=== PATIENT | female | born 1955 | race Caucasian/White ===

== ENCOUNTER 2018-05-12 03:47 | Emergency (ER) | payer OTHER, SELFPAY ==
[2018-05-12 04:38] LABS: #Basophils 0.2 thou/uL (0.0-0.2); #Eosinphils 0.3 thou/uL (0.0-0.7); #Lymphocytes 2.1 thou/uL (1.20-3.40); #Monocytes 0.4 thou/uL (0.11-0.59); %Basophils 2.8 % (0.0-1.0); %Lymphocytes 35.6 % (21.0-51.0); %Monocytes 6.7 % (0.0-10.0); %Neutrophils 49.8 % (42.0-75.0); Hemoglobin 12.1 g/dL (12.0-16.0); Mean Corpuscular HGB CONC 34.1 g/dL (32.0-36.0); Mean Corpuscular Hemoglobin 33.4 pg (27.0-31.0); Mean Platelet Volume 7.1 fL (7.4-10.4); Platelet Count 183 thou/uL (130-400); Red Blood Cell (RBC) Count 3.62 mill/uL (4.20-5.40); White Blood Cell (WBC) Count 5.9 thou/uL (4.8-10.8)
[2018-05-12 04:41] LABS: Bilirubin Negative (Negative); Blood, Urine Trace (Negative); Clarity CLEAR (Clear); Glucose, Urine (Dipstick) 250 mg/dL (Negative); Leukocyte Negative (Negative); Nitrite Negative (Negative); Protein, Urine (Dipstick) Negative (Neg-Trace); Specific Gravity, Urine 1.017 (1.002-1.036); Urobilinogen 0.2 mg/dL (0.2-1.0)
[2018-05-12 04:44] LABS: Bacteria/HPF None Seen HPF (None Seen); Hyaline Casts/LPF 0-3 HYALINE CAST LPF (0-3 Hyaline); RBC/HPF 0-3 HPF (0-3); Squamous Epithelial None Seen HPF (0-3); WBC/HPF None Seen HPF (0-3)
[2018-05-12 04:57] LABS: Amphetamine Not Detected (NotDetected); Barbiturates Screen Not Detected (NotDetected); Benzodiazepine Screen Not Detected (NotDetected); Cocaine Metabolite Screen Not Detected (NotDetected); Medtox Control Line Valid? VALID (VALID); Medtox Reader # READER 4; Methadone Not Detected (NotDetected); Methamphetamine Not Detected (NotDetected); Opiate Screen Not Detected (NotDetected); Oxycodone Screen Not Detected (NotDetected); Phencyclidine (PCP) Not Detected (NotDetected); THC/Cannabinoid Screen Not Detected (NotDetected); Tricyclic Screen Not Detected (NotDetected)
[2018-05-12 04:59] LABS: ALT (SGPT) 35 U/L (8-55); AST (SGOT) 45 U/L (5-34); Acetaminophen Less than 6.0 mcg/mL (10.0-30.0); Albumin 4.4 g/dL (3.4-4.8); Alcohol Less than 10 mg/dL (Less than 10); Alkaline Phosphatase 71 U/L (40-150); Anion Gap 15 mmol/L (10-20); BUN (Urea Nitrogen) 23 mg/dL (9.8-20.1); Bilirubin, Total 0.4 mg/dL (0.2-1.2); CK (CPK) 763 U/L (29-168); Calc. Creatinine Clearance 0 mL/min (70-130); Calcium 9.6 mg/dL (7.8-10.44); Carbon Dioxide 21 mmol/L (23-31); Chloride 98 mmol/L (98-107); Estimated GFR-MDRD 44; Globulin 3.1 g/dL (2.4-3.5); Glucose 196 mg/dL (80-115); Lipase 26 U/L (8-78); Potassium 4.4 mmol/L (3.5-5.1); Protein, Total 7.5 g/dL (6.0-8.3); Salicylate Less than 8.0 mg/dL (15.0-30.0); Sodium 130 mmol/L (136-145)
[2018-05-12 05:02] LABS: Troponin I Less than 0.010 ng/mL (< 0.028)
[2018-05-12 05:07] LABS: CKMB 8.5 ng/mL (0-6.6)
== END 2018-05-12 05:50 | disposition home or self-care (01) ==
LOC: ERS 03:47
DX: T68.XXXA Hypothermia, initial encounter (principal); E10.649 Type 1 diabetes mellitus with hypoglycemia without coma; E78.00 Pure hypercholesterolemia, unspecified; F41.9 Anxiety disorder, unspecified; F32.9 Major depressive disorder, single episode, unspecified
CPT/HCPCS: 36415; 36416; 51701; 80053; 80306; 80307; 81003; 81015; 82140; 82553; 83690; 84443; 84484; 85025; 93005; 94760; 96360; A4353

== ENCOUNTER 2018-05-23 06:58 | Inpatient (IN) | payer SELFPAY ==
--- NOTE | 2018-05-23 07:41 | RAD ---
PORTABLE CHEST: Date: 05/23/18 HISTORY: Hypoglycemia. FINDINGS: Lung deng are clear. Lungs show hyperexpansion. No evidence of vascular congestion or edema. Heart size within normal range. IMPRESSION: No evidence of acute lung process. POS: [facility]
[2018-05-23 07:59] LABS: ALT (SGPT) 36 U/L (8-55); AST (SGOT) 46 U/L (5-34); Albumin 4.6 g/dL (3.4-4.8); Alkaline Phosphatase 73 U/L (40-150); Anion Gap 18 mmol/L (10-20); BUN (Urea Nitrogen) 33 mg/dL (9.8-20.1); Bilirubin, Total 0.5 mg/dL (0.2-1.2); Calc. Creatinine Clearance 0 mL/min (70-130); Calcium 10.1 mg/dL (7.8-10.44); Carbon Dioxide 19 mmol/L (23-31); Chloride 97 mmol/L (98-107); Estimated GFR-MDRD 26; Globulin 3.4 g/dL (2.4-3.5); Glucose 114 mg/dL (80-115); Potassium 3.8 mmol/L (3.5-5.1); Sodium 130 mmol/L (136-145)
[2018-05-23 08:00] LABS: #Basophils 0.1 thou/uL (0.0-0.2); #Eosinphils 0.2 thou/uL (0.0-0.7); #Monocytes 0.7 thou/uL (0.11-0.59); #Neutrophils 3.5 thou/uL (1.40-6.50); %Basophils 2.2 % (0.0-1.0); %Lymphocytes 30.5 % (21.0-51.0); %Monocytes 11.1 % (0.0-10.0); %Neutrophils 53.2 % (42.0-75.0); Hemoglobin 12.7 g/dL (12.0-16.0); Mean Corpuscular HGB CONC 31.5 g/dL (32.0-36.0); Mean Corpuscular Hemoglobin 30.5 pg (27.0-31.0); Mean Platelet Volume 7.2 fL (7.4-10.4); Platelet Count 220 thou/uL (130-400); RBC Distribution Width 12.9 % (11.5-14.5); Red Blood Cell (RBC) Count 4.18 mill/uL (4.20-5.40); White Blood Cell (WBC) Count 6.5 thou/uL (4.8-10.8)
[2018-05-23 08:04] LABS: Troponin I Less than 0.010 ng/mL (< 0.028)
[2018-05-23 08:08] LABS: CKMB 7.5 ng/mL (0-6.6)
[2018-05-23] MEDS ORDERED: Dextrose 5% in Water 1,000 ML IV PRN (08:43)
[2018-05-23] MEDS ORDERED: Dextrose 50% Abboject 50 ML SYRINGE SLOW IVP PRN (08:43)
[2018-05-23] MEDS ORDERED: Acetaminophen 325 MG TAB PO PRN (08:43)
[2018-05-23] MEDS ORDERED: Bisacodyl 5 MG TAB PO PRN (08:43)
[2018-05-23] MEDS ORDERED: Acetaminophen 650 MG Suppository PR PRN (08:43)
[2018-05-23 10:08] VITALS: BMI 23.8
[2018-05-23] MEDS: Sodium Chloride 0.9% 1,000 ML IV SCH (10:56)
[2018-05-23] MEDS: Heparin 5,000 UNITS/ML VIAL SC SCH ×3 (10:57→20:28)
--- NOTE | 2018-05-23 13:46 | HP ---
PRIMARY CARE PROVIDER: Tiffanie Chiu M.D. CHIEF COMPLAINT: Altered mental status. HISTORY OF PRESENT ILLNESS: Ms. Yanez is a pleasant 62-year-old lady who was seen at [facility] on 05/23/2018. She is able to provide history now. She vomited 4 times 2 nights ago and attributed it to food poisoning. Otherwise, she was doing well until last night. Today morning, she woke up around 7 a.m. and mumbled something to her . He could not understand what she was saying. Her body was cold to touch. EMS was called. She was fou nd to be hypoglycemic and received D50. She was subsequently transferred to the emergency room. She currently denies any chest pain, shortness of breath, fevers or chills. She denies any nausea or vomiting. She denies any abdominal pain. She reports that other than the vomiting episodes mentioned above, she has not had any diarrhea or vo miting. She reports good oral intake. REVIEW OF SYSTEMS: All other systems reviewed and found to be negative. PAST MEDICAL HISTORY: Diabetes mellitus type 2, diabetic ketoacidosis, hypertension, hypothyroidism, diabetic gastroparesis, chronic normocytic anemia, and dyslipidemia. PAST SURGICAL HISTORY: None. SOCIAL HISTORY: The patient denies tobacco use, alcohol use or recreational drug use. FAMILY HISTORY: Significant for several family members with diabetes and hypertension. ALLERGIES: MORPHINE. CURRENT MEDICATIONS: Humalog insulin 75/25, 25 units subcutaneously 2 times a day; lisinopril 30 mg daily, and vitamin D3 5000 units daily. PHYSICAL EXAMINATION: GENERAL: Ms. Yanez is awake and alert, not in acute distress. VITAL SIGNS: Blood pressure is 147/89, pulse 66, respiratory rate 18, and oxygen saturation 96% on r oom air. Rectal temperature is 92.6 degrees Fahrenheit. EYES: No scleral icterus. No conjunctival pallor. ENT: Dry mucosal membranes, no oropharyngeal erythema or exudates. NECK: Supple, nontender, normal range of movement. Trachea is midline. RESPIRATORY: Accessory muscles of breathing are not active. Chest wall movements are symmetric bila terally. LUNGS: Clear to auscultation without wheeze, rhonchi or crepitations. CARDIOVASCULAR: S1 and S2 are heard, regular. Peripheral pulses palpable. No carotid bruit, no per icardial rub. ABDOMEN: Soft, nontender, bowel sounds are heard, no hepatomegaly, no splenomegaly. NEUROLOGIC: Cranial nerves II through XII intact. Deep tendon reflexes are 2+. MUSCULOSKELETAL: Power is 5/5 in all 4 extremities. SKIN: No rashes or subcutaneous nodules. LYMPHATIC: No cervical lymphadenopathy. PSYCHIATRIC: Normal mood, normal affect, patient is oriented to person, place, and time. LABORATORY DATA: Mr. Yanez's labs and investigations were reviewed. I reviewed her electrocardio gram, which shows normal sinus rhythm, no ST changes to suggest an acute coronary syndrome. I also r eviewed her chest x-ray, which does not show any pulmonary infiltrates. She has a normal white count , normal hemoglobin, normal platelet count, decreased sodium of 130, normal potassium, decreased carb on dioxide of 19, normal anion gap of 18, elevated blood urea nitrogen of 33, elevated creatinine of 1.96, last known creatinine 1.25 on 05/12/2018, elevated creatine kinase of 639, normal troponin I, n ormal albumin and normal calcium. Total bilirubin is normal, AST is mildly elevated at 46, ALT is no rmal and alkaline phosphatase is normal as well. ASSESSMENT AND PLAN: Ms. Yanez is a pleasant 62-year-old lady who was seen at [facility] on 05/23/2018. Her problem list includes: 1. Acute on chronic renal failure: This is most likely prerenal, with elevated blood urea nitrogen and creatinine. She will receive hydration, will recheck her creatinine level. 2. Hypothermia: Etiology is unclear. We will check TSH, blood cultures and urinalysis to rule out infection. For now, patient will be treated with warm blankets and Cris Hugger. 3. Hypoglycemia: The patient had hypoglycemic episode at home, most likely secondary to renal failu re causing buildup of insulin levels. We will start her on Accu-Cheks and insulin sliding scale here . 4. Hyponatremia: Etiology unclear, we will recheck. 5. Acute encephalopathy: Appears to have resolved. 6. Hypertension: Monitor vital signs, titrate antihypertensives as needed. Many thanks for allowing me to participate in your patient's care. Please feel free to contact me wi th any questions or concerns. LEVEL OF RISK: High. LEVEL OF COMPLEXITY: High.
[2018-05-23] MEDS: HumaLOG 300 UNITS/3 ML VIAL SC PRN (18:14)
[2018-05-23 20:08] LABS: Bilirubin Negative (Negative); Blood, Urine Negative (Negative); Clarity CLEAR (Clear); Glucose, Urine (Dipstick) 500 mg/dL (Negative); Leukocyte Small (Negative); Nitrite Negative (Negative); Protein, Urine (Dipstick) Negative (Neg-Trace); Specific Gravity, Urine 1.018 (1.002-1.036); Urobilinogen 0.2 mg/dL (0.2-1.0)
[2018-05-23 20:13] LABS: Bacteria/HPF None Seen HPF (None Seen); Hyaline Casts/LPF 0-3 HYALINE CAST LPF (0-3 Hyaline); RBC/HPF 0-3 HPF (0-3); Squamous Epithelial 0-3 HPF (0-3); WBC/HPF 0-3 HPF (0-3)
[2018-05-24] MEDS: Sodium Chloride 0.9% 1,000 ML IV SCH ×2 (00:15→15:43)
[2018-05-24 04:27] LABS: #Basophils 0.1 thou/uL (0.0-0.2); #Eosinphils 0.3 thou/uL (0.0-0.7); #Lymphocytes 2.6 thou/uL (1.20-3.40); #Monocytes 0.6 thou/uL (0.11-0.59); #Neutrophils 3.2 thou/uL (1.40-6.50); %Eosinophils 3.9 % (0.0-10.0); %Lymphocytes 38.2 % (21.0-51.0); %Monocytes 9.6 % (0.0-10.0); %Neutrophils 47.3 % (42.0-75.0); Hemoglobin 10.6 g/dL (12.0-16.0); Mean Corpuscular HGB CONC 33.6 g/dL (32.0-36.0); Mean Corpuscular Hemoglobin 32.1 pg (27.0-31.0); Mean Corpuscular Volume 95.8 fL (78.0-98.0); Mean Platelet Volume 6.7 fL (7.4-10.4); Platelet Count 206 thou/uL (130-400); RBC Distribution Width 12.8 % (11.5-14.5); Red Blood Cell (RBC) Count 3.29 mill/uL (4.20-5.40); White Blood Cell (WBC) Count 6.7 thou/uL (4.8-10.8)
[2018-05-24 04:50] LABS: Anion Gap 10 mmol/L (10-20); BUN (Urea Nitrogen) 18 mg/dL (9.8-20.1); Calc. Creatinine Clearance 49 mL/min (70-130); Calcium 8.8 mg/dL (7.8-10.44); Carbon Dioxide 25 mmol/L (23-31); Chloride 103 mmol/L (98-107); Estimated GFR-MDRD 41; Glucose 235 mg/dL (80-115); Potassium 4.6 mmol/L (3.5-5.1); Sodium 133 mmol/L (136-145)
[2018-05-24] MEDS: HumaLOG 300 UNITS/3 ML VIAL SC PRN ×3 (05:10→16:53)
[2018-05-24] MEDS: Heparin 5,000 UNITS/ML VIAL SC SCH ×3 (09:35→20:27)
[2018-05-24 13:20] LABS: Free T4 (Free Thyroxine) 0.41 ng/dL (0.70-1.48)
--- NOTE | 2018-05-24 17:01 | PDOC.PN ---
- Subjective Encounter Start Date: 05/24/18 Encounter Start Time: 08:40 Pt seen for followup re:acute on chronic renal insufficiency. Feels better, denies chest pain, shortness of breath, fevers or chills. - Objective MAR Reviewed: Yes Vital Signs & Weight: Vital Signs (12 hours) Temp Pulse Resp BP BP Pulse Ox 05/24/18 16:21 98.0 F 74 20 123/73 95 05/24/18 11:54 97.3 F L 65 20 125/71 97 05/24/18 08:00 98.1 F 69 18 96 05/24/18 07:14 98.1 F 69 18 105/64 96 I&O: 05/23/18 05/24/18 05/25/18 06:59 06:59 06:59 Intake Total 1700 Balance 1700 Result Diagrams: 05/24/18 04:12 05/24/18 04:12 Additional Labs: Accuchecks 05/24/18 05/23/18 05/23/18 05:04 19:36 17:05 POC Glucose 256 H 294 H 276 H Labs reviewed by me Phys Exam - Physical Examination Constitutional: NAD HEENT: moist MMs, sclera anicteric, oral pharynx no lesions, 2+ tonsils Neck: no nodes, no JVD, supple, full ROM Respiratory: no wheezing, no rales, no rhonchi, clear to auscultation bilateral Cardiovascular: RRR, no rub S1, S2 Gastrointestinal: soft, non-tender, no distention, positive bowel sounds Neurological: moves all 4 limbs Psychiatric: normal affect, A&O x 3 Dx/Plan (1) Acute on chronic renal failure Code(s): N17.9 - ACUTE KIDNEY FAILURE, UNSPECIFIED; N18.9 - CHRONIC KIDNEY DISEASE, UNSPECIFIED Status: Acute Comment: Improving, likely prerenal, continue IV fluids tonight (2) Diabetes type I Status: Acute Comment: continue accuchecks, insulin sliding scale. Add levemir insulin (3) Hypothyroidism Code(s): E03.9 - HYPOTHYROIDISM, UNSPECIFIED Status: Chronic Comment: Patient was taken off of thyroid medication because she was hyperthyroid. Will resume synthroid (4) Hypertension Code(s): I10 - ESSENTIAL (PRIMARY) HYPERTENSION Status: Chronic Comment: Monitor vital signs, titrate antihypertensives as needed. (5) Hypothermia Code(s): T68.XXXA - HYPOTHERMIA, INITIAL ENCOUNTER Status: Resolved (6) Hypoglycemia Code(s): E16.2 - HYPOGLYCEMIA, UNSPECIFIED Status: Resolved - Plan plan discussed w/ family, out of bed/ambulate * . Blood cultures still pending, no leucocytosis, continue to observe for now Review of Systems - Review of Systems Constitutional: negative: fever, chills, sweats, weakness, malaise Respiratory: negative: Cough, Shortness of Breath, SOB with Excertion, Pleuritic Pain, Wheezing Cardiovascular: negative: chest pain, palpitations, orthopnea, paroxysmal nocturnal dyspnea, edema, light headedness Gastrointestinal: negative: Nausea, Vomiting, Abdominal Pain, Diarrhea, Constipation, Melena, Hematochezia Genitourinary: negative: Dysuria, Frequency, Incontinence, Hematuria, Retention Skin: negative: Rash, Lesions, Edward, Bruising - Medications/Allergies Allergies/Adverse Reactions: Allergies Allergy/AdvReac Type Severity Reaction Status Date / Time morphine Allergy Emesis Verified 05/30/15 15:54 Medications: Current Medications Acetaminophen (Tylenol) 650 mg PO Q4H PRN PRN Reason: Headache/Fever or Pain Acetaminophen (Tylenol) 650 mg [place] Q4H PRN PRN Reason: Headache/Fever or Pain Bisacodyl (Dulcolax) 10 mg PO DAILYPRN PRN PRN Reason: Constipation Dextrose/Water (Dextrose 50%) 25 gm SLOW IVP PRN PRN PRN Reason: Hypoglycemia Glucagon (Glucagon) 1 mg IM PRN PRN PRN Reason: Hypoglycemia Heparin Sodium (Porcine) (Heparin) 5,000 units SC TID [facility] Last Admin: 05/24/18 15:39 Dose: 5,000 units Dextrose/Water (D5w) 1,000 mls @ 0 mls/hr IV .Q0M PRN; As Directed PRN Reason: Hypoglycemia Sodium Chloride (Normal Saline 0.9%) 1,000 mls @ 70 mls/hr IV .[id number] [facility] Last Admin: 05/24/18 15:43 Dose: 1,000 mls Insulin Human Lispro (Humalog) 0 units SC .MILD SLIDING SCALE PRN PRN Reason: Mild Correctional Scale Last Admin: 05/24/18 16:53 Dose: 4 unit
[2018-05-24] MEDS: Insulin Glargine 10 UNITS in Pre-Filled Syringe 1 EACH SC SCH (20:26)
[2018-05-25] MEDS: Sodium Chloride 0.9% 1,000 ML IV SCH (04:18)
[2018-05-25 05:45] LABS: #Basophils 0.1 thou/uL (0.0-0.2); #Eosinphils 0.4 thou/uL (0.0-0.7); #Lymphocytes 3.1 thou/uL (1.20-3.40); #Monocytes 0.6 thou/uL (0.11-0.59); #Neutrophils 2.9 thou/uL (1.40-6.50); %Basophils 0.9 % (0.0-1.0); %Eosinophils 5.3 % (0.0-10.0); %Lymphocytes 44.2 % (21.0-51.0); %Monocytes 8.2 % (0.0-10.0); %Neutrophils 41.5 % (42.0-75.0); Hemoglobin 10.8 g/dL (12.0-16.0); Mean Corpuscular HGB CONC 33.1 g/dL (32.0-36.0); Mean Corpuscular Hemoglobin 31.8 pg (27.0-31.0); Mean Corpuscular Volume 96.2 fL (78.0-98.0); Mean Platelet Volume 6.7 fL (7.4-10.4); Platelet Count 223 thou/uL (130-400); RBC Distribution Width 12.9 % (11.5-14.5); Red Blood Cell (RBC) Count 3.41 mill/uL (4.20-5.40)
[2018-05-25 05:58] LABS: Anion Gap 12 mmol/L (10-20); BUN (Urea Nitrogen) 15 mg/dL (9.8-20.1); Calc. Creatinine Clearance 53 mL/min (70-130); Calcium 8.7 mg/dL (7.8-10.44); Carbon Dioxide 23 mmol/L (23-31); Chloride 103 mmol/L (98-107); Estimated GFR-MDRD 45; Glucose 187 mg/dL (80-115); Potassium 4.5 mmol/L (3.5-5.1); Sodium 133 mmol/L (136-145)
[2018-05-25] MEDS: Insulin Glargine 10 UNITS in Pre-Filled Syringe 1 EACH SC SCH (08:27)
[2018-05-25] MEDS: Heparin 5,000 UNITS/ML VIAL SC SCH (08:28)
[2018-05-25 11:52] VITALS: BP 128/79
--- NOTE | 2018-05-25 13:49 | DIS ---
PRIMARY CARE PHYSICIAN: Dr. Tiffanie Chiu DATE OF ADMISSION: 05/23/2018 DATE OF DISCHARGE: 05/25/2018 DISCHARGE DIAGNOSES: 1. Acute on chronic renal insufficiency. 2. Hypoglycemia. 3. Hypothermia. 4. Hypothyroidism. CONDITION OF PATIENT ON THE DAY OF DISCHARGE: Stable. I assessed Ms. Yanez on the day of dischar . She denies any chest pain or shortness of breath. Vital signs are stable. S1 and S2 are heard, regular. Lungs are clear to auscultation bilaterally. DISCHARGE MEDICATIONS: Synthroid 50 mcg daily, acetaminophen 650 mg 2 times a day, vitamin D3 400 un its daily, Levemir insulin 10 units 2 times a day and lisinopril 30 mg daily. HOSPITAL COURSE: Ms. Yanez is a pleasant 62-year-old lady who was admitted to [facility] on 05/23/2018 for hypoglycemia, most likely secondary to insulin level buildup in the context of acute on chronic renal insufficiency. Her creatinine was 1.96 at the time of admission. Following admission, she was also hypothermic, improved with blankets and a Cris Hugger. Blood cultu res were sent, she was not started on antibiotics. At the time of discharge, preliminary blood cultu res are negative. She is advised to follow up with her primary care provider for final blood culture report. TSH was checked and it was found to be elevated at 142. Free T4 was low at 0.41. Free T3 was less t aguilar 1. She has been started on Synthroid 50 mcg daily. She improved symptomatically. On the day of discharge, she has sodium 133, potassium 4.5, creatinine 1.22, white count 7000, hemogl obin 10.8, and platelet count 223,000. Many thanks for allowing me to participate in your patient's care. Please feel free to contact me wi th any questions or concerns. DISCHARGE DESTINATION: Home. TOTAL AMOUNT OF TIME SPENT COORDINATING THIS DISCHARGE: 33 minutes.
[2018-05-25] MEDS ORDERED: Levothyroxine Sodium 50 MCG TAB PO SCH (14:00)
[2018-05-25 14:11] VITALS: TEMP 97.8
[2018-05-26] MEDS ORDERED: Levothyroxine Sodium 50 MCG TAB PO SCH (06:00)
== END 2018-05-25 14:09 | disposition home or self-care (01) | DRG 682 ==
LOC: ERS 06:58 → T4-A 09:17
PROVIDERS: ADMIT Internal Medicine; ATTEND Internal Medicine
DX: N17.9 Acute kidney failure, unspecified (principal); G93.40 Encephalopathy, unspecified; E87.1 Hypo-osmolality and hyponatremia; R68.0 Hypothermia, not associated with low environmental temperature; E03.9 Hypothyroidism, unspecified; E10.649 Type 1 diabetes mellitus with hypoglycemia without coma; I12.9 Hypertensive chronic kidney disease with stage 1 through stage 4 chronic kidney disease, or unspecified chronic kidney disease; E10.22 Type 1 diabetes mellitus with diabetic chronic kidney disease; N18.9 Chronic kidney disease, unspecified; E78.5 Hyperlipidemia, unspecified; Z79.4 Long term (current) use of insulin; Z79.899 Other long term (current) drug therapy; Z83.3 Family history of diabetes mellitus; Z82.49 Family history of ischemic heart disease and other diseases of the circulatory system
CPT/HCPCS: 36415; 36416; 71045; 80048; 80053; 81003; 81015; 82553; 84439; 84443; 84481; 84484; 85025; 87040; 93005; 96360; J1644

== ENCOUNTER 2018-06-22 08:14 | Inpatient (IN) | payer SELFPAY ==
[2018-06-22 08:41] LABS: Bilirubin Negative (Negative); Blood, Urine Negative (Negative); Clarity CLOUDY (Clear); Glucose, Urine (Dipstick) >=1000 mg/dL (Negative); Leukocyte Negative (Negative); Nitrite Negative (Negative); Protein, Urine (Dipstick) Negative (Neg-Trace); Specific Gravity, Urine 1.022 (1.002-1.036); Urobilinogen 0.2 mg/dL (0.2-1.0)
[2018-06-22 09:10] LABS: Hemoglobin 10.7 g/dL (12.0-16.0); Mean Corpuscular HGB CONC 31.2 g/dL (32.0-36.0); Mean Corpuscular Hemoglobin 32.7 pg (27.0-31.0); Mean Platelet Volume 8.8 fL (7.4-10.4); Platelet Count 214 thou/uL (130-400); RBC Distribution Width 12.6 % (11.5-14.5); Red Blood Cell (RBC) Count 3.26 mill/uL (4.20-5.40); White Blood Cell (WBC) Count 13.3 thou/uL (4.8-10.8)
--- NOTE | 2018-06-22 09:30 | RAD ---
1 VIEW CHEST: Date: 06/22/18 COMPARISON: 05/23/18. HISTORY: Altered mental status. FINDINGS: Stable cardiac silhouette. Pulmonary vessels and hilum are normal. Costophrenic angles are clear. Per sistent hyperinflation. No consolidation or mass. No pneumothorax or osseous abnormalities. IMPRESSION: Hyperinflation. No acute process. POS: [facility]
--- NOTE | 2018-06-22 09:31 | CT ---
NONCONTRAST HEAD CT: HISTORY: Altered mental status. COMPARISON: 03/10/2013 FINDINGS: No parenchymal hemorrhage. No extraaxial hematoma. No midline shift. The basilar cisterns are handy nt. Brain volume is age appropriate. Cortical harrington white matter differentiation is preserved. The ventricles and sulci are patent and symmetric. There is a hypodensity in the left centrum semiovale and castelan radiata, likely representing a remote white matter infarct. Adequate aeration of the sinuses and mastoid air cells. The calvarium is intact. IMPRESSION: No acute intracranial process. POS: [facility]
[2018-06-22 09:32] LABS: #Lymphocytes 1.6 thou/uL (1.20-3.40); #Monocytes 1.2 thou/uL (0.11-0.59); #Neutrophils 10.4 thou/uL (1.40-6.50); %Basophils 0.3 % (0.0-1.0); %Eosinophils 0.1 % (0.0-10.0); %Lymphocytes 12.2 % (21.0-51.0); %Monocytes 9.2 % (0.0-10.0); %Neutrophils 78.2 % (42.0-75.0); ALT (SGPT) 52 U/L (8-55); AST (SGOT) 37 U/L (5-34); Acetaminophen Less than 6.0 mcg/mL (10.0-30.0); Albumin 4.4 g/dL (3.4-4.8); Alcohol Less than 10 mg/dL (Less than 10); Alkaline Phosphatase 94 U/L (40-150); BUN (Urea Nitrogen) 56 mg/dL (9.8-20.1); Bilirubin, Total 0.7 mg/dL (0.2-1.2); Calc. Creatinine Clearance 0 mL/min (70-130); Calcium 11.4 mg/dL (7.8-10.44); Chloride 86 mmol/L (98-107); Estimated GFR-MDRD 13; Globulin 3.2 g/dL (2.4-3.5); Lipase 27 U/L (8-78); MDiff Complete? YES; Macrocytosis SLIGHT = 6-15 cells (100X) (0-5/hpf); Magnesium 2.8 mg/dL (1.6-2.6); PLT Morphology Comment Appears Adequate; Poikilocytosis SLIGHT = 6-15 cells (100X) (0-5/hpf); Protein, Total 7.6 g/dL (6.0-8.3); Salicylate Less than 8.0 mg/dL (15.0-30.0); Sodium 125 mmol/L (136-145)
[2018-06-22 09:36] LABS: CKMB 1.6 ng/mL (0-6.6); Troponin I Less than 0.010 ng/mL (< 0.028)
[2018-06-22] MEDS ORDERED: Insulin Regular 300 UNITS/3 ML VIAL ONE (10:14)
[2018-06-22] MEDS ORDERED: Albuterol Sulfate 2.5 mg/3 ml Neb ONE (10:29)
[2018-06-22] MEDS ORDERED: Insulin Regular 100 units/100 ml in NS IVPB SCH (10:30)
[2018-06-22 10:35] LABS: Osmolality, Serum 360 mOsm/kg (280-295)
[2018-06-22] MEDS ORDERED: Calcium Chloride 1 GM/10 ML Abboject SYRINGE ONE (10:37)
[2018-06-22] MEDS ORDERED: Sodium Bicarb 50 MEQ/50 ML Abboject 8.4% SYRINGE ONE ×2 (10:37→10:38)
[2018-06-22 10:47] LABS: Free T4 (Free Thyroxine) 1.01 ng/dL (0.70-1.48)
[2018-06-22 10:50] LABS: Base Excess-Venous -20.9 mmol/L (0 (+/- 2.5)); Bicarbonate (HCO3v) 5.7 mmol/L (1.0-85.0); CO2 Tension (PvCO2) 15.9 mmHg (41.0-51.0); Calcium, Ionized 1.14 mmol/L (1.12-1.32); Hemoglobin - Calc 11.6 g/dL (12.0-18.0); Lactate 7.57 mmol/L (0.50-2.20); O2 Tension (PvO2) 68.5 mmHg (35.0-45.0); Potassium 6.9 mmol/L (3.4-4.7); T. Carbon Dioxide 6.1 mmol/L (1.0-85.0); pH (Venous) 7.159 (7.35-7.45); vO2 Saturation-calc 88.5 % (94-98)
[2018-06-22] MEDS ORDERED: Norepinephrine 8 MG/250 ML BAG IVPB PRN (11:05)
[2018-06-22 11:12] LABS: Carbon Dioxide Less than 8 mmol/L (23-31); Glucose 1149 mg/dL (80-115); Potassium 7.6 mmol/L (3.5-5.1)
[2018-06-22] MEDS ORDERED: Norepinephrine 8 MG/0.9% NS 250 ML ONE (11:12)
[2018-06-22 11:21] LABS: Bicarbonate (HCO3v) 7.3 mmol/L (1.0-85.0); CO2 Tension (PvCO2) 19.1 mmHg (41.0-51.0); Calcium, Ionized 1.28 mmol/L (1.12-1.32); Hemoglobin - Calc 9.8 g/dL (12.0-18.0); O2 Tension (PvO2) 55.8 mmHg (35.0-45.0); Potassium 5.8 mmol/L (3.4-4.7); T. Carbon Dioxide 7.9 mmol/L (1.0-85.0); pH (Venous) 7.191 (7.35-7.45); vO2 Saturation-calc 82.3 % (94-98)
[2018-06-22] MEDS ORDERED: Midazolam HCl 2 mg/2 ml Vial ONE (11:21)
[2018-06-22] MEDS ORDERED: Sodium Bicarbonate 150 MEQ in Sterile Water Injection 850 ML IV SCH (11:30)
[2018-06-22] MEDS ORDERED: Sodium Bicarbonate 150 MEQ in Sterile Water Injection 1,000 ML IV SCH (11:30)
--- NOTE | 2018-06-22 12:38 | CON ---
DATE OF CONSULTATION: 06/22/2018 NEPHROLOGY CONSULTATION REASON FOR CONSULTATION: Hyperkalemia. HISTORY OF PRESENT ILLNESS: This is a 62-year-old female who presented to the hospital with poor p.o . intake and unable to give any history and was noted to have a potassium of 7.6, so I was consulted. The patient was given sodium bicarbonate for severe acidosis and the patient has been severely dehy drated. PAST MEDICAL HISTORY: Significant for hypertension, diabetes mellitus type 1, anemia, CKD, hypertens ion, history of hypothyroidism. SOCIAL HISTORY: No alcohol or drug use. FAMILY HISTORY: Negative for ESRD. REVIEW OF SYSTEMS: Unobtainable. HOME MEDICATIONS: List reviewed. HOSPITAL MEDICATIONS: List reviewed. ALLERGIES: Reviewed. PHYSICAL EXAMINATION: GENERAL: The patient is resting. Nonverbal. Awake, alert, in no acute distress. VITAL SIGNS: Afebrile, pulse 100, breathing 16, blood pressure 100/75. GENERAL APPEARANCE AND MENTAL STATUS: Fair. HEAD/NECK: Normocephalic. Atraumatic. EYES: EOMI. No deformity. EARS: Clear. No ulcers. NOSE: Intact. No lesions. MOUTH: Clear. No discharge. THROAT: Clear. No exudate. LUNGS: Clear. No crackles. CARDIAC: S1, S2. No rub. ABDOMEN: Benign. BS+. GENITALIA/RECTUM: Lemus absent. BACK/EXTREMITIES: Edema 0+. Ulcer-. NEUROLOGICAL: The patient is nonverbal. SKIN: Rash-. Bruise-. LYMPHATICS: Edema-. Ulcer-. LABORATORY DATA: Potassium 7.6, which has now improved to 5.8, creatinine is 3.6. ASSESSMENT AND RECOMMENDATIONS: 1. Acute on chronic kidney disease, most likely because of dehydration. 2. Metabolic acidosis. Start bicarbonate. 3. Hyperkalemia. Give bicarbonate. If does not improve, consider dialysis. Overall, prognosis is poor. I spent more than 1 hour on this consultation.
[2018-06-22 13:05] LABS: Troponin I 0.034 ng/mL (< 0.028)
--- NOTE | 2018-06-22 13:32 | HP ---
PRIMARY CARE PHYSICIAN: Dr. Tiffanie Chiu. CHIEF COMPLAINT: Altered mental status. HISTORY OF PRESENT ILLNESS: The history of present illness is taken primarily from the patient's landon ghter and who were at bedside as the patient is still a little bit confused and is a very, ve ry poor historian. She is awake and alert, however, and now she is in the hospital. Ms. Yanez is a 62-year-old female that has a history of diabetes mellitus type 1. She was diagnosed about 20 yea rs ago, but has always required insulin. She is able to tell me that she took 20 units of insulin at noon yesterday and ate lunch. She says she had some tomatoes and some cheddar cheese with some tincoo nnaise on a piece of toast and since then that was the last thing she ate and then this morning, her was getting ready for work, but noticed that she appeared altered repeating the same things o lluvia and over and seemed a bit confused. They have had much experience with her being in DKA and as a result, they brought her to the hospital. In the ER, she was found to have a blood glucose over 100 0, as well as she was in acute renal failure, bicarbonate less than 8 and she is being admitted for D KA with acute renal failure and hyperkalemia. In the ER, she has already been started on an insulin drip. She has been treated for the hyperkalemia and is being admitted to the ICU. The patient also has a history of hypothyroidism. She had been off of thyroid medications for several months and has recently been placed back on it in the last month and she was also recently changed from insulin bein g 75/25 to Lantus insulin. She is unable to tell me how much she is supposed to take. She cannot re member how much of the 75/25 she took. Her family does not know either and apparently in the remote past, she was also on an insulin pump. She denies any symptoms of the infection such as fevers, chil ls, sore throat, cough, congestion, etc. REVIEW OF SYSTEMS: All systems were reviewed and are negative except for that mentioned in the histo ry of present illness. PAST MEDICAL HISTORY: Significant for diabetes mellitus type 1 for 20 years, hypertension, hypothyro idism, gastroparesis, dyslipidemia. PAST SURGICAL HISTORY: She has had a lumpectomy. ALLERGIES: To MORPHINE. SOCIAL HISTORY: She is a nonsmoker, nondrinker. She is . She is a FULL CODE. FAMILY HISTORY: Significant for hypertension and diabetes mellitus. MEDICATIONS: Include Lantus 20 units daily, lisinopril 30 mg daily, levothyroxine 50 mcg daily. PHYSICAL EXAMINATION: GENERAL: She is alert and oriented, but she is confused and has a difficult time giving history. Fidel myers repeats the same things over and over, takes a very long time to answer a question and gets off the subject very quickly. VITAL SIGNS: Her blood pressure was 93/43, heart rate 99, respiratory rate of 20, temperature, she i s afebrile. HEENT: Pupils are equal, round, and reactive. Extraocular muscles are intact. Her sclerae are anic teric. Throat: There is no erythema, no exudates. NECK: No adenopathy, no bruits. LUNGS: Clear to auscultation. There was no wheezing, no rales. CARDIOVASCULAR: She has a normal S1, S2. There is no S3 or S4. No murmurs, clicks, no rubs. ABDOMEN: Soft, it is nontender, nondistended. Positive for bowel sounds. There is no rebound or gu arding. EXTREMITIES: There is no clubbing, cyanosis, no edema. NEUROLOGIC: The exam is grossly nonfocal. LABORATORY DATA: Sodium 125, potassium 7.6, chloride is 86, CO2 was less than 8, BUN of 56, creatini ne 3.6, glucose was 1149, calcium elevated at 11.4. TSH was elevated at 41.7. Urinalysis was essent ially negative. Beta hydroxybutyrate elevated. White blood cell count 13.3, hemoglobin 10.7, hemato crit is 34.1, platelet count is 214. Her pH on her blood gas was 1.15. X-RAY FINDINGS: Chest x-ray did not show any acute infiltrates or effusion. CT scan of the brain wa s negative. ASSESSMENT AND PLAN: This is a pleasant 62-year-old female that presents with diabetic ketoacidosis. I suspect this is a result of noncompliance or poor insight and knowledge on how to use her medicat ions. No signs of any infection. She will be admitted to the ICU, started on an insulin drip, place d on the ICU replacement protocol. I suspect that her potassium should drop with the insulin adminis tration. 1. Acute renal failure. This is likely related to prerenal azotemia and likely as a result of volum e depletion, she will be placed on copious fluid resuscitation. Hopefully, her renal function should improve with hydration as expected, but if not, a renal ultrasound will be obtained and a Nephrology consult. 2. Hypothyroidism. We will continue her Synthroid at 50 mcg daily. Her free T4 was normal and it w ill probably take time for her TSH to normalize. She does not appear to be in any form of myxedema c balbir. Otherwise, she will be placed on deep venous thrombosis and gastrointestinal prophylaxis and sh e will need education on insulin and insulin administration, compliance, etc once she is clinically m ore stable.
--- NOTE | 2018-06-22 13:50 | PDOC.PULCN ---
<Basilio Gabriel - Last Filed: 06/22/18 14:07> Pulmonology Consult: HPI - Date of Consult Date: 06/22/18 Time: 13:46 - Consult Details Reason for Consult: DKA, hyperkalemia, AMS Requesting Physician: Shay - History of Present Illness HPI: ARNOLDO CHERY is a 62 year-old F who presented to the ED for evaluation of altered mental status. Family states they first noticed her acting different last night, she was confused but never complained of pain. This morning family brought her to the ED because of worsening confusion and slurred speech. She has a PMH including DM1, Anemia, CKD, hypothyroidism, and HTN. She denies any pain at time of exam. She is A&Ox3. She denies any weakness on one side or the other. She denies N/V/D, abdominal pain, or headache. Her insulin regimen was changed to long acting insulin about 1 month ago per family and they feel she should have some short acting insulin added to the regimen. She takes 20U of lantus at noon daily. She states that she never skips her insulin. Pulmonology Consult: ROS - Review of Systems All systems: reviewed and no additional remarkable complaints except as stated Constitutional: negative: fever, chills, sweats, weakness Cardiovascular: negative: chest pain, palpitations Respiratory: no reported symptoms. negative: cough, chest tightness, short of breath Pulmonology Consult: PMH Source: patient, family Past Medical History: HTN, DM1, Anemia, CKD, Hypothyroidism - Social History Smoking Status: Never smoker Alcohol Use: none Drug Use History: none Living Situation: independent, Pulmonology Consult: Meds - Medications MAR Reviewed: Yes Medications: Current Medications Insulin Human Regular 100 (units/ Sodium Chloride) 101 mls @ 7 mls/hr IVPB INF JANICE Norepinephrine Bitartrate (Levophed) 250 mls @ 0 mls/hr IVPB INF PRN; Protocol ; Titrate PRN Reason: Blood Pressure Sodium Bicarbonate 150 meq/ (Sterile Water) 1,000 mls @ 217.391 mls/hr IV NOW JANICE Stop: 06/22/18 16:05 - Allergies Allergies/Adverse Reactions: Allergies Allergy/AdvReac Type Severity Reaction Status Date / Time morphine Allergy Emesis Verified 05/30/15 15:54 Pulmonology Consult: PE - Physical Exam Constitutional: NAD HEENT: PERRLA, moist MMs, TM's clear Neck: no nodes, supple Cardiovascular: RRR, no significant murmur Respiratory: clear to auscultation bilaterally. negative: accessory muscle use , wheezes Gastrointestinal: soft, non-tender, no distention, positive bowel sounds Musculoskeletal: no edema, pulses present Neurological: non-focal, moves all 4 limbs Deviation from normal: equal motor room controller strength bilaterally, family states they note persistent slurred -: speech, mild lip droop on L, otherwise CN II-XII grossly intact Lymphatic: no nodes Psychiatric: normal affect, A&O x 3 Skin: no rash, cap refill <2 seconds Pulmonology Consult: Results - Labs Result Diagrams: 06/22/18 08:55 06/22/18 08:55 - ABG Interpretation ABG Results: POC Bicarbonate Calc 7.3 mmol/L (1.0-85.0) 06/22/18 11:16 Pulmonology Consult: A/P - Problem (1) DKA (diabetic ketoacidoses) Current Visit: Yes Code(s): E13.10 - OTH DIABETES MELLITUS WITH KETOACIDOSIS WITHOUT COMA Status: Acute (2) Diabetes type I Current Visit: No Status: Acute (3) Diabetes type 1, uncontrolled Current Visit: No Code(s): E10.65 - TYPE 1 DIABETES MELLITUS WITH HYPERGLYCEMIA Status: Chronic (4) Hypertension Current Visit: No Code(s): I10 - ESSENTIAL (PRIMARY) HYPERTENSION Status: Chronic (5) Hypothyroidism Current Visit: No Code(s): E03.9 - HYPOTHYROIDISM, UNSPECIFIED Status: Chronic (6) Dehydration Current Visit: No Code(s): E86.0 - DEHYDRATION Status: Resolved (7) Dehydration Current Visit: Yes Code(s): E86.0 - DEHYDRATION Status: Acute - Time Time: 50% of the time was spent in coordination of care (as documented) at patient's floor/unit and/or counseling patient. Time with Patient: greater than 50 minutes - Plan Plan: Senior Automation Engineer Recs to follow resident plan: This is a stable 62 yo F with DM1 being treated for DKA, hypothyroidism, and stoke r/o. DISPATCH COORDINATOR (stroke r/o, slurred speech) - persistent slurred speech and left lip droop - CT head negative - consider carotid doppler, MRI - re-evaluate after resolution of DKA Resp () - No SOB CV (hypotensive on presentation to ED) - no chest pain - on levophed drip - trend troponin - trop trended up in ED, likely demand ischemia GI () - no N/V/D, abdominal pain Nutrition - ice chips until resolution of DKA /Renal (dehydration, hyper K, CKD) - received bicarb, calcium carbonate, insulin in the ED - 3L of NS in the ED, rehydration per DKA protocol - trend BMP q2 hrs - Dr. Cee consulted, recs dialysis if K does not improve Infection () - lactate elevated, likely 2/2 dehydration Endo (DKA, Hypothyroidism) - restart home synthroid, TSH 41 - Anion gap 33 on presentation - DKA protocol - check BMP q 2 hrs Code status: full Diet: ice chips PPx: lovenox Dispo: >2 days <Ryan Mccallum - Last Filed: 06/22/18 15:28> Pulmonology Consult: HPI - History of Present Illness HPI: ARNOLDO CHERY is a 62 year-old F Pulmonology Consult: Meds - Medications Medications: Current Medications Insulin Human Regular 100 (units/ Sodium Chloride) 101 mls @ 7 mls/hr IVPB INF JANICE Norepinephrine Bitartrate (Levophed) 250 mls @ 0 mls/hr IVPB INF PRN; Protocol ; Titrate PRN Reason: Blood Pressure Sodium Bicarbonate 150 meq/ (Sterile Water) 1,000 mls @ 217.391 mls/hr IV NOW JANICE Stop: 06/22/18 16:05 Pulmonology Consult: Results - Labs Result Diagrams: 06/22/18 08:55 06/22/18 08:55 - ABG Interpretation ABG Results: POC Bicarbonate Calc 7.3 mmol/L (1.0-85.0) 06/22/18 11:16 Pulmonology Consult: A/P - Time Time: 50% of the time was spent in coordination of care (as documented) at patient's floor/unit and/or counseling patient. - Plan Plan: Pt seen and evaluated. I have confirmed all aspects of the H&P from Dr. Gabriel and agree with above. She has severe hyperglycemia from DKA. I believe the hyperkalemia and azotemia are also from volume contraction due to DKA. She needs much more volume than what has already been given. She also needs a young catheter so that we can closely monitor UOP. In addition to hydration, we will put her on IV insulin and attempt to wean off the levophed. 45 minutes CC time. SES
[2018-06-22] MEDS: Sodium Chloride 0.9% 1,000 ML IV SCH ×2 (15:00→17:00)
[2018-06-22 15:02] LABS: Troponin I 0.082 ng/mL (< 0.028)
[2018-06-22 15:04] LABS: Lactic Acid 9.3 mmol/L (0.5-2.2)
[2018-06-22] MEDS ORDERED: hydrALAZINE 20 MG/ML VIAL SLOW IVP PRN (15:34)
[2018-06-22] MEDS ORDERED: Sodium Chloride 0.9% 1,000 ML IV PRN ×4 (15:34)
[2018-06-22] MEDS ORDERED: NS 0.9% w/ 20 MEQ KCL 1,000 ML IV PRN ×2 (15:34)
[2018-06-22] MEDS ORDERED: CCU Electrolyte Replacement 1 EACH IVPB ONE (15:34)
[2018-06-22] MEDS ORDERED: Acetaminophen 325 MG TAB PO PRN (15:34)
[2018-06-22] MEDS ORDERED: Dextrose 5 %-0.45 % NaCl 1,000 ML IV PRN (15:34)
[2018-06-22 16:00] LABS: BUN (Urea Nitrogen) 52 mg/dL (9.8-20.1); Calc. Creatinine Clearance 0 mL/min (70-130); Calcium 10.7 mg/dL (7.8-10.44); Chloride 99 mmol/L (98-107); Estimated GFR-MDRD 15; Potassium 4.4 mmol/L (3.5-5.1); Sodium 137 mmol/L (136-145)
[2018-06-22] MEDS ORDERED: Magnesium Oxide 400 MG TAB PO PRN ×2 (16:08)
[2018-06-22] MEDS ORDERED: Potassium Chloride 20 MEQ TAB PO PRN (16:08)
[2018-06-22] MEDS ORDERED: Magnesium 2 GM/NS 0.9% 100 ML 2 GM in Premix Bag 1 BAG IVPB PRN (16:08)
[2018-06-22] MEDS ORDERED: Potassium Phosphate 15 MMOL in Sodium Chloride 0.9% 250 ML 250 ML IV PRN (16:08)
[2018-06-22] MEDS ORDERED: CCU ELECTROLYTE REPLACEMENT PROTOCOL FS PRN (16:08)
[2018-06-22] MEDS ORDERED: Potassium Chloride 40 MEQ in Premix Bag 1 BAG IVPB PRN (16:08)
[2018-06-22] MEDS ORDERED: Potassium Chloride 40 MEQ in Sodium Chloride 0.9% 250 ML 250 ML IVPB PRN (16:08)
[2018-06-22] MEDS ORDERED: Potassium Phosphate 12 MMOL in Sodium Chloride 0.9% 250 ML 250 ML IV PRN (16:08)
[2018-06-22] MEDS ORDERED: Potassium Phosphate 9 MMOL in Sodium Chloride 0.9% 100 ML IVPB PRN (16:08)
[2018-06-22 16:31] LABS: Carbon Dioxide Less than 8 mmol/L (23-31); Glucose 760 mg/dL (80-115)
[2018-06-22] MEDS: Heparin 5,000 UNITS/ML VIAL SC SCH ×2 (18:11→21:20)
[2018-06-22 18:27] VITALS: BMI 23.8
[2018-06-22] MEDS: D5 1/2 NS w/20 mEq KCL 1,000 ML IV PRN ×2 (19:30→21:22)
[2018-06-22 20:38] LABS: Anion Gap 20 mmol/L (10-20); BUN (Urea Nitrogen) 43 mg/dL (9.8-20.1); Calc. Creatinine Clearance 25 mL/min (70-130); Calcium 9.8 mg/dL (7.8-10.44); Carbon Dioxide 18 mmol/L (23-31); Chloride 104 mmol/L (98-107); Estimated GFR-MDRD 19; Glucose 550 mg/dL (80-115); Potassium 4.3 mmol/L (3.5-5.1); Sodium 138 mmol/L (136-145)
[2018-06-22] MEDS ORDERED: Famotidine/PF 20 mg/2ml Vial SLOW IVP SCH (21:00)
[2018-06-23 00:23] LABS: Calcium 9.6 mg/dL (7.8-10.44); Chloride 109 mmol/L (98-107); Potassium 4.5 mmol/L (3.5-5.1); Sodium 141 mmol/L (136-145)
[2018-06-23 00:24] LABS: Glucose 291 mg/dL (80-115)
[2018-06-23 00:25] LABS: Anion Gap 17 mmol/L (10-20); Carbon Dioxide 20 mmol/L (23-31)
[2018-06-23 00:27] LABS: Calc. Creatinine Clearance 29 mL/min (70-130); Estimated GFR-MDRD 22
[2018-06-23 00:28] LABS: BUN (Urea Nitrogen) 40 mg/dL (9.8-20.1)
[2018-06-23 00:30] LABS: Phosphorus 1.4 mg/dL (2.3-4.7)
[2018-06-23] MEDS: D5 1/2 NS w/20 mEq KCL 1,000 ML IV PRN (03:25)
[2018-06-23 04:03] LABS: Anion Gap 11 mmol/L (10-20); BUN (Urea Nitrogen) 38 mg/dL (9.8-20.1); Calc. Creatinine Clearance 33 mL/min (70-130); Calcium 9.4 mg/dL (7.8-10.44); Carbon Dioxide 24 mmol/L (23-31); Chloride 111 mmol/L (98-107); Estimated GFR-MDRD 27; Glucose 192 mg/dL (80-115); Potassium 4.2 mmol/L (3.5-5.1); Sodium 142 mmol/L (136-145)
[2018-06-23] MEDS ORDERED: Dextrose 50% Abboject 50 ML SYRINGE SLOW IVP PRN (06:39)
[2018-06-23] MEDS ORDERED: Dextrose 5% in Water 1,000 ML IV PRN (06:39)
--- NOTE | 2018-06-23 06:46 | PDOC.PN ---
- Subjective Encounter Start Date: 06/23/18 (f/u DKA) Encounter Start Time: 06:44 Subjective: Pt reports her bottom is sore from being in bed. Denies any -: n/v/abd pain. Feels tired. Denies any new sx. - Objective Resuscitation Status: Resuscitation Status FULL:Full Resuscitation Vital Signs & Weight: Vital Signs (12 hours) Temp Pulse Resp Pulse Ox 06/23/18 05:00 98.4 F 06/23/18 01:00 98.2 F 06/22/18 20:00 97.7 F 84 18 99 Most Recent Monitor Data Heart Rate from ECG 81 NIBP 122/59 NIBP BP-Mean 74 Respiration from ECG 18 SpO2 94 I&O: 06/21/18 06/22/18 06/23/18 06:59 06:59 06:59 Intake Total 8298 Output Total 8 Balance 6270 Result Diagrams: 06/22/18 08:55 06/23/18 13:09 Additional Labs: Accuchecks 06/23/18 06/23/18 06/23/18 06:12 05:12 04:07 POC Glucose 119 H 121 H 149 H 06/23/18 06/23/18 06/23/18 03:15 02:22 01:17 POC Glucose 190 H 217 H 243 H 06/23/18 06/22/18 06/22/18 00:09 23:17 22:25 POC Glucose 286 H 244 H 330 H 06/22/18 06/22/18 06/22/18 21:45 20:26 19:31 POC Glucose 409 H 463 H Greater than 550 H* 06/22/18 18:19 POC Glucose 531 H EKG Reviewed by me: Yes (tele - sinus 80's with PVC's) Phys Exam - Physical Examination Constitutional: NAD Respiratory: no wheezing, no rales, no rhonchi, clear to auscultation bilateral Cardiovascular: RRR, no significant murmur Gastrointestinal: soft, non-tender, no distention, positive bowel sounds Musculoskeletal: no edema, pulses present Neurological: non-focal Psychiatric: normal affect Deviation from normal: tired, easily falling asleep Skin: no rash Dx/Plan (1) DKA (diabetic ketoacidoses) Code(s): E13.10 - OTH DIABETES MELLITUS WITH KETOACIDOSIS WITHOUT COMA Status : Acute Qualifiers: Diabetes mellitus type: type 1 Diabetes mellitus complication detail: without coma Qualified Code(s): E10.10 - Type 1 diabetes mellitus with ketoacidosis without coma (2) Acute kidney failure Status: Resolved Comment: (3) Hypophosphatemia Code(s): E83.39 - OTHER DISORDERS OF PHOSPHORUS METABOLISM Status: Acute (4) Hyperlipidemia Code(s): E78.5 - HYPERLIPIDEMIA, UNSPECIFIED Status: Chronic Qualifiers: Hyperlipidemia type: unspecified Qualified Code(s): E78.5 - Hyperlipidemia , unspecified (5) Gastroparesis Code(s): K31.84 - GASTROPARESIS Status: Chronic (6) Hypertension Code(s): I10 - ESSENTIAL (PRIMARY) HYPERTENSION Status: Chronic Qualifiers: Hypertension type: essential hypertension Qualified Code(s): I10 - Essential (primary) hypertension Comment: Monitor vital signs, titrate antihypertensives as needed. (7) Hypothyroidism Code(s): E03.9 - HYPOTHYROIDISM, UNSPECIFIED Status: Chronic Qualifiers: Hypothyroidism type: unspecified Qualified Code(s): E03.9 - Hypothyroidism , unspecified (8) Anemia Code(s): D64.9 - ANEMIA, UNSPECIFIED Status: Chronic Qualifiers: Anemia type: unspecified type Qualified Code(s): D64.9 - Anemia, unspecified - Plan * DKA - gap closed, and currently on 2 units/hour of insulin gtt. Pt on 20 units lantus at home - will start with 15 units lantus now, turn drip off in 1 hour and monitor q2h x 4 then ac/hs. Add SSI with meals, advance to carb consistent diet as tolerated. * CRISTA - improved with underlying CKD. UOP is dropping, d/w Dr. Cee and will lower IVF rate and continue monitoring. Change to NS as we are turning off the insulin gtt * hypophos -on protocol for replacement * * hypothyroidism - not controlled - resume levothyroxine, will need close f/u with her PCP for adjustment as TSH is 41 * * chronic macrocytic anemia - stable - will need outpatient f/u and consideration of testing for b12/folate. * * dvt prophy - heparin * gi prophy - not indicated, will d/c IV famotidine * code status full * * reviewed the adjustments of medications with the patient who demonstrates understanding, no questions or further needs at end of eval * * pt remains at high risk in current condition .
[2018-06-23] MEDS ORDERED: Levothyroxine Sodium 50 MCG TAB PO SCH ×2 (07:00)
--- NOTE | 2018-06-23 07:47 | PDOC.PULPN ---
Progress Note: Subj/Obj - Subjective Date: 06/23/18 Time: 07:45 Narrative: Feels better. Says her buttocks is sore - ROS All systems: reviewed and no additional remarkable complaints except as stated - Objective Allergies/Adverse Reactions: Allergies Allergy/AdvReac Type Severity Reaction Status Date / Time morphine Allergy Emesis Verified 05/30/15 15:54 MAR Reviewed: Yes Vital Signs: Vital Signs Temp 98.8 F 06/23/18 07:00 Pulse 84 06/22/18 20:00 Resp 18 06/22/18 20:00 BP Pulse Ox 99 06/22/18 20:00 Intake & Output 06/22/18 06/23/18 06/23/18 18:59 06:59 18:59 Intake Total 3785 4513 0 Output Total 1200 828 0 Balance 2585 3685 0 Intake: Intake, IV Amount 3065 4513 D5 1/2 NS w/20 mEq KCL 1, 4253 000 ml @ 250 mls/hr IV . Q4H PRN Rx#:[id number] Insulin Regular (Human) 30 160 100 units In Sodium Chloride 0.9% 100 ml @ Titrate IVPB INF [facility] Rx#: [id number] Norepinephrine 8 MG/0.9% 35 NS 250 ml @ Titrate IVPB INF PRN Rx#:[id number] Potassium Phosphate 9 100 mmol In Sodium Chloride 0 .9% 100 ml @ 25.75 mls/hr IVPB ASDIR PRN Rx#: [id number] Sodium Bicarbonate 150 1000 meq In Sterile Water Injection 850 ml @ 217. 391 mls/hr IV NOW [facility] Rx# :[id number] Sodium Chloride 0.9% 1, 2000 000 ml @ 999 mls/hr IV . Q1H1M [facility] Rx#:[id number] Oral 720 0 Output: Urine 400 Output, Lemus 800 828 0 Other: Voiding Method Indwelling Catheter Indwelling Catheter Progress Note: Exam - Physical Exam Constitutional: NAD HEENT: PERRLA, moist MMs, sclera anicteric Neck: no nodes, no JVD Cardiovascular: RRR, no significant murmur Respiratory: clear to auscultation anteriorly Gastrointestinal: soft, non-tender Musculoskeletal: no edema Neurological: non-focal Lymphatic: no nodes Psychiatric: normal affect, A&O x 3 Skin: no rash Progress Note: Data - Labs Result Diagrams: 06/22/18 08:55 06/23/18 03:15 Progress Note: A/P - Problems (1) DKA (diabetic ketoacidoses) Current Visit: Yes Status: Acute Code(s): E13.10 - OTH DIABETES MELLITUS WITH KETOACIDOSIS WITHOUT COMA Qualifiers: Diabetes mellitus type: type 1 Diabetes mellitus complication detail: without coma Qualified Code(s): E10.10 - Type 1 diabetes mellitus with ketoacidosis without coma Assessment and Plan: Anion Gap closed, can come off insulin drip (2) Dehydration Current Visit: Yes Status: Acute Code(s): E86.0 - DEHYDRATION Assessment and Plan: improved, continuing NS (3) Hypophosphatemia Current Visit: Yes Status: Acute Code(s): E83.39 - OTHER DISORDERS OF PHOSPHORUS METABOLISM Assessment and Plan: receiving KPhos (4) Diabetes type 1, uncontrolled Current Visit: No Status: Chronic Code(s): E10.65 - TYPE 1 DIABETES MELLITUS WITH HYPERGLYCEMIA Assessment and Plan: resuming home insulin doses - Plan Plan: Stable for transfer to floor later today
[2018-06-23] MEDS: Insulin Glargine 15 UNITS in Pre-Filled Syringe 1 EACH SC SCH (08:36)
[2018-06-23] MEDS: Heparin 5,000 UNITS/ML VIAL SC SCH ×3 (08:43→21:13)
[2018-06-23] MEDS: Sodium Chloride 0.9% 1,000 ML IV SCH ×2 (09:00→18:45)
--- NOTE | 2018-06-23 11:23 | PRG ---
DATE OF SERVICE: 06/23/2018 SUBJECTIVE: This is a 62-year-old female being seen for acute kidney injury and hyperkalemia. The p atient denies any nausea, vomiting, chest pain. PHYSICAL EXAMINATION: GENERAL: The patient is awake and alert. VITAL SIGNS: Afebrile, pulse 82, breathing 16, blood pressure 143/66. OBJECTIVE: See above. Awake, alert, in no acute distress. GENERAL APPEARANCE AND MENTAL STATUS: Fair. HEAD/NECK: Normocephalic. Atraumatic. EYES: EOMI. No deformity. EARS: Clear. No ulcers. NOSE: Intact. No lesions. MOUTH: Clear. No discharge. THROAT: Clear. No exudate. LUNGS: Clear. No crackles. CARDIAC: S1, S2. No rub. ABDOMEN: Benign. BS+. GENITALIA/RECTUM: Lemus absent. BACK/EXTREMITIES: Edema 0+ Ulcer- NEUROLOGICAL: Alert and motor intact. SKIN: Rash- Bruise- LYMPHATICS: Edema- Ulcer- LABORATORY DATA: Potassium is 4.2, bicarbonate 24, creatinine 1.9. ASSESSMENT AND RECOMMENDATIONS: 1. Acute kidney injury with chronic kidney disease stage 4, stable. 2. Hypertension, stable. 3. Anemia, stable. 4. Hyperkalemia, stable. 5. Metabolic acidosis, stable. No indication for dialysis. We will follow renal function closely.
[2018-06-23 11:41] LABS: Glucose Greater than 700.0 mg/dL (70-105)
[2018-06-23 13:53] LABS: Anion Gap 18 mmol/L (10-20); BUN (Urea Nitrogen) 32 mg/dL (9.8-20.1); Calc. Creatinine Clearance 41 mL/min (70-130); Calcium 8.9 mg/dL (7.8-10.44); Carbon Dioxide 17 mmol/L (23-31); Chloride 110 mmol/L (98-107); Estimated GFR-MDRD 34; Glucose 122 mg/dL (80-115); Phosphorus 2.1 mg/dL (2.3-4.7); Sodium 140 mmol/L (136-145)
--- NOTE | 2018-06-23 16:17 | PDOC.EVN ---
Event Note - Event Note Event Note: called by RN that pt is doing well and can be transferred to the floor - not much appetite, has been sleepy. Will order ACHS checks and an overnight glucose check with the goal of avoiding hypoglycemia.
[2018-06-23] MEDS ORDERED: Metoclopramide 10 MG/10 ML UDCUP PO PRN (18:32)
--- NOTE | 2018-06-23 18:36 | PDOC.EVN ---
Event Note - Event Note Event Note: called by RN for pt c/o nausea. Will order zofran iv prn, reglan po prn, continue IVF. Change finger stick glucose to q2 hours to insure she does not become hypo or hyperglycemic. Evaluated patient - she denies any abd pain. Reports a loose stool today and hx of c diff a few years ago. no recent abx. She denies any vomiting. discussed the plan above with her and family, add back IV famotidine tonight. If nausea persists, will consider GI evaluation tomorrow. No questions or further needs at end of eval.
[2018-06-23] MEDS: Ondansetron HCl/PF 4 MG/2 ML Vial IVP PRN (19:04)
[2018-06-23] MEDS: Famotidine/PF 20 mg/2ml Vial SLOW IVP SCH (21:14)
[2018-06-24 04:43] LABS: #Eosinphils 0.1 thou/uL (0.0-0.7); #Monocytes 0.6 thou/uL (0.11-0.59); #Neutrophils 8.9 thou/uL (1.40-6.50); %Basophils 0.3 % (0.0-1.0); %Eosinophils 0.7 % (0.0-10.0); %Lymphocytes 17.4 % (21.0-51.0); %Neutrophils 76.5 % (42.0-75.0); Mean Corpuscular HGB CONC 33.5 g/dL (32.0-36.0); Mean Corpuscular Volume 98.7 fL (78.0-98.0); Mean Platelet Volume 8.6 fL (7.4-10.4); Platelet Count 140 thou/uL (130-400); RBC Distribution Width 12.6 % (11.5-14.5); Red Blood Cell (RBC) Count 2.72 mill/uL (4.20-5.40); White Blood Cell (WBC) Count 11.7 thou/uL (4.8-10.8)
[2018-06-24 05:06] LABS: Anion Gap 13 mmol/L (10-20); BUN (Urea Nitrogen) 21 mg/dL (9.8-20.1); Calc. Creatinine Clearance 52 mL/min (70-130); Calcium 8.6 mg/dL (7.8-10.44); Carbon Dioxide 21 mmol/L (23-31); Chloride 108 mmol/L (98-107); Estimated GFR-MDRD 44; Glucose 190 mg/dL (80-115); Potassium 4.2 mmol/L (3.5-5.1); Sodium 138 mmol/L (136-145)
[2018-06-24] MEDS: Levothyroxine Sodium 50 MCG TAB PO SCH (06:05)
[2018-06-24] MEDS: HumaLOG 300 UNITS/3 ML VIAL SC PRN ×3 (06:07→18:42)
[2018-06-24] MEDS: Sodium Chloride 0.9% 1,000 ML IV SCH (06:19)
--- NOTE | 2018-06-24 08:29 | PDOC.PN ---
- Subjective Encounter Start Date: 06/24/18 (f/u DKA) Encounter Start Time: 08:27 Subjective: Pt without complaints this morning, reports nausea has resolved -: appetite improved. denies pain/any new complaints or concerns. - Objective Resuscitation Status: Resuscitation Status FULL:Full Resuscitation Vital Signs & Weight: Vital Signs (12 hours) Temp Pulse Resp BP Pulse Ox 06/24/18 07:48 98.0 F 75 18 144/78 H 91 L 06/24/18 04:00 97.6 F 75 20 143/75 H 92 L 06/24/18 00:00 97.6 F 74 20 134/77 95 06/23/18 20:55 98.2 F 74 20 74 L Most Recent Monitor Data Heart Rate from ECG 78 NIBP 138/58 NIBP BP-Mean 88 Respiration from ECG 13 SpO2 95 I&O: 06/23/18 06/24/18 06/25/18 06:59 06:59 06:59 Intake Total 8298 2235 Output Total 0 2958 Balance 6270 -1800 Result Diagrams: 06/24/18 03:43 06/24/18 03:43 Additional Labs: Accuchecks 06/24/18 06/24/18 06/24/18 06:06 04:11 01:54 POC Glucose 209 H 183 H 155 H 06/23/18 06/23/18 06/23/18 23:05 21:18 19:55 POC Glucose 149 H 141 H 131 H 06/23/18 06/23/18 06/23/18 18:44 16:33 13:08 POC Glucose 130 H 129 H 146 H 06/23/18 06/23/18 11:20 08:36 POC Glucose 97 141 H Phys Exam - Physical Examination Constitutional: NAD pulse ox 95-97% on room air (oxygen removed) Respiratory: no wheezing, no rhonchi bilateral faint rales at bases, good air movement Cardiovascular: RRR, no significant murmur Gastrointestinal: soft, non-tender, no distention, positive bowel sounds edema of right hand - secondary to IV infiltration overnight no LE edema Neurological: non-focal, moves all 4 limbs Psychiatric: normal affect Skin: no rash, cap refill <2 seconds Dx/Plan (1) DKA (diabetic ketoacidoses) Code(s): E13.10 - OTH DIABETES MELLITUS WITH KETOACIDOSIS WITHOUT COMA Status : Acute Qualifiers: Diabetes mellitus type: type 1 Diabetes mellitus complication detail: without coma Qualified Code(s): E10.10 - Type 1 diabetes mellitus with ketoacidosis without coma (2) Acute kidney failure Status: Resolved Comment: (3) Hypophosphatemia Code(s): E83.39 - OTHER DISORDERS OF PHOSPHORUS METABOLISM Status: Acute (4) Hyperlipidemia Code(s): E78.5 - HYPERLIPIDEMIA, UNSPECIFIED Status: Chronic Qualifiers: Hyperlipidemia type: unspecified Qualified Code(s): E78.5 - Hyperlipidemia , unspecified (5) Hypertension Code(s): I10 - ESSENTIAL (PRIMARY) HYPERTENSION Status: Chronic Qualifiers: Hypertension type: essential hypertension Qualified Code(s): I10 - Essential (primary) hypertension Comment: Monitor vital signs, titrate antihypertensives as needed. (6) Hypothyroidism Code(s): E03.9 - HYPOTHYROIDISM, UNSPECIFIED Status: Chronic Qualifiers: Hypothyroidism type: unspecified Qualified Code(s): E03.9 - Hypothyroidism , unspecified (7) Anemia Code(s): D64.9 - ANEMIA, UNSPECIFIED Status: Chronic Qualifiers: Anemia type: unspecified type Qualified Code(s): D64.9 - Anemia, unspecified - Plan * DKA resolved - started on lantus yesterday, will increase to 20 units today and continue short-acting mealtime insulin * Rales on exam- may be atelectasis or volume overload. Pulse ox this morning reported as normal on room air - hold on lasix. Incentive spirometer, obtain echo. * * renal function appears at baseline with CKD - d/c IVF * * continue synthroid * anemia likely dilutional from the amount of IVF - follow, there are no signs of active bleeding * * dvt prophy - scd's and ambulatory * gi prophy - change to PO famotidine * code status full * * anticipate pt will be here another 24 hours for adjusting medications, obtaining echo and monitoring lung exam * reviewed plan of care with patient, no questions or further needs at end of eval * * * 15:56 - re-evaluated and exam improved - faint rales. Pt encouraged to continue IS, ambulate, for the young to be d/c and awaiting echo. No indication for lasix at this time - reconsider with any changes.
--- NOTE | 2018-06-24 08:32 | PRG ---
DATE OF SERVICE: 06/24/2018 The patient is doing better. She had no acute complaints this morning. PHYSICAL EXAMINATION: VITAL SIGNS: Temperature 98.0, pulse 85, respirations 18, O2 sat 91% on room air, blood pressure 144 /78. HEENT: Unremarkable. NECK: No JVD. CHEST: Clear without wheezing or rhonchi. CARDIAC: S1 and S2 regular. ABDOMEN: Soft. EXTREMITIES: No edema. LABORATORY DATA: White blood count 11.7, hematocrit 26.8, platelet count 140. Sodium 138, potassium 4.2, chloride 108, CO2 21, BUN 21, creatinine 1.2, glucose 190. ASSESSMENT: 1. Status post diabetic ketoacidosis. 2. Resolved dehydration. 3. Uncontrolled type 1 diabetes mellitus. PLAN: The patient is probably near her baseline. I will go ahead and discontinue her Lemus. We roby l get physical therapy to assess her and hopefully she can go home soon.
[2018-06-24] MEDS: Insulin Glargine 15 UNITS in Pre-Filled Syringe 1 EACH SC SCH (10:02)
[2018-06-24] MEDS: Ondansetron HCl/PF 4 MG/2 ML Vial IVP PRN (10:06)
[2018-06-24] MEDS: Insulin Glargine 20 UNITS in Pre-Filled Syringe 1 EACH SC SCH (10:06)
--- NOTE | 2018-06-24 11:42 | PRG ---
DATE OF SERVICE: 06/24/2018 SUBJECTIVE: This is a 62-year-old female being seen for acute kidney injury. The patient denies darin sea, vomiting or chest pain. PHYSICAL EXAMINATION: GENERAL: Patient is awake, alert. VITAL SIGNS: Afebrile, pulse 75, breathing 16, blood pressure 134/77. HEAD/NECK: Normocephalic. Atraumatic. EYES: EOMI. No deformity. EARS: Clear. No ulcers. NOSE: Intact. No lesions. MOUTH: Clear. No discharge. THROAT: Clear. No exudate. LUNGS: Clear. No crackles. CARDIAC: S1, S2. No rub. ABDOMEN: Benign. BS+. GENITALIA/RECTUM: Lemus absent. BACK/EXTREMITIES: Edema 0+ Ulcer- NEUROLOGICAL: Alert and motor intact. SKIN: Rash- Bruise- LYMPHATICS: Edema- Ulcer- LABORATORY DATA: Show hemoglobin 9, creatinine is 1.2. ASSESSMENT AND RECOMMENDATIONS: 1. Acute kidney injury, improved. 2. Chronic kidney disease stage 3, stable. 3. Hypertension, stable. 4. Metabolic acidosis, stable. I will sign off on this patient. Please reconsult as needed.
[2018-06-24] MEDS: Famotidine/PF 20 mg/2ml Vial SLOW IVP SCH (20:35)
[2018-06-25 04:40] LABS: #Eosinphils 0.1 thou/uL (0.0-0.7); #Lymphocytes 1.9 thou/uL (1.20-3.40); #Monocytes 0.6 thou/uL (0.11-0.59); #Neutrophils 5.9 thou/uL (1.40-6.50); %Basophils 0.2 % (0.0-1.0); %Eosinophils 1.7 % (0.0-10.0); %Lymphocytes 22.4 % (21.0-51.0); %Monocytes 6.8 % (0.0-10.0); %Neutrophils 68.9 % (42.0-75.0); Hemoglobin 8.9 g/dL (12.0-16.0); Mean Corpuscular HGB CONC 33.2 g/dL (32.0-36.0); Mean Corpuscular Hemoglobin 32.7 pg (27.0-31.0); Mean Corpuscular Volume 98.4 fL (78.0-98.0); Mean Platelet Volume 8.1 fL (7.4-10.4); Platelet Count 133 thou/uL (130-400); RBC Distribution Width 12.6 % (11.5-14.5); Red Blood Cell (RBC) Count 2.72 mill/uL (4.20-5.40); White Blood Cell (WBC) Count 8.6 thou/uL (4.8-10.8)
[2018-06-25 05:04] LABS: Anion Gap 13 mmol/L (10-20); BUN (Urea Nitrogen) 16 mg/dL (9.8-20.1); Calc. Creatinine Clearance 60 mL/min (70-130); Calcium 8.2 mg/dL (7.8-10.44); Carbon Dioxide 24 mmol/L (23-31); Chloride 107 mmol/L (98-107); Estimated GFR-MDRD 52; Glucose 157 mg/dL (80-115); Sodium 140 mmol/L (136-145)
[2018-06-25] MEDS: Levothyroxine Sodium 50 MCG TAB PO SCH (06:32)
[2018-06-25] MEDS: HumaLOG 300 UNITS/3 ML VIAL SC PRN ×3 (06:33→17:06)
--- NOTE | 2018-06-25 08:06 | PRG ---
DATE OF SERVICE: 06/25/2018 The patient is doing well, has no complaints. She is eager to go home. PHYSICAL EXAMINATION: VITAL SIGNS: Temperature is 98, pulse 73, blood pressure 120/69, O2 sat 93%. HEENT: Unremarkable. NECK: No JVD. LUNGS: Clear without crackles. CARDIAC: S1 and S2 regular. ABDOMEN: Soft. EXTREMITIES: No edema. LABORATORY DATA: White blood cell count 8.6, hematocrit 26.8, platelet count 133. Sodium 140, potas sium 4, chloride 100, CO2 24, BUN 16, creatinine 1.0, glucose 157. ASSESSMENT: 1. Status post diabetic ketoacidosis. 2. Resolved azotemia. PLAN: She is cleared to go home. There are no active pulmonary issues. We will sign off. Please r bernarda if further assistance needed.
[2018-06-25] MEDS ORDERED: Furosemide 20 MG/2 ML VIAL SLOW IVP SCH (08:45)
--- NOTE | 2018-06-25 08:45 | PDOC.PN ---
- Subjective Encounter Start Date: 06/25/18 (f/u dka) Encounter Start Time: 08:43 Subjective: Pt without complaints. Has been out of bed only once overnight. -: denies n/v/abd pain. Noted some weakness with ambulation -: denies cp/sob - Objective Resuscitation Status: Resuscitation Status FULL:Full Resuscitation Vital Signs & Weight: Vital Signs (12 hours) Temp Pulse Resp BP BP Pulse Ox 06/25/18 07:36 98.0 F 73 18 120/69 93 L 06/25/18 04:44 98.6 F 73 16 128/70 92 L 06/25/18 00:55 95 06/25/18 00:46 98.9 F 73 16 131/70 91 L Most Recent Monitor Data Heart Rate from ECG 78 NIBP 138/58 NIBP BP-Mean 88 Respiration from ECG 13 SpO2 95 I&O: 06/24/18 06/25/18 06/26/18 06:59 06:59 06:59 Intake Total 2235 800 Output Total 4035 950 Balance -1800 -150 Result Diagrams: 06/25/18 03:51 06/25/18 03:51 Additional Labs: Accuchecks 06/25/18 06/24/18 06/24/18 04:20 19:58 16:54 POC Glucose 153 H 160 H 216 H 06/24/18 12:08 POC Glucose 253 H Phys Exam - Physical Examination Constitutional: NAD Respiratory: no wheezing, no rhonchi basilar rales right > left Cardiovascular: RRR, no significant murmur Gastrointestinal: soft, non-tender, no distention, positive bowel sounds Musculoskeletal: no edema, pulses present Neurological: non-focal, moves all 4 limbs Psychiatric: normal affect Skin: no rash Dx/Plan (1) DKA (diabetic ketoacidoses) Code(s): E13.10 - OTH DIABETES MELLITUS WITH KETOACIDOSIS WITHOUT COMA Status : Resolved Qualifiers: Diabetes mellitus type: type 1 Diabetes mellitus complication detail: without coma Qualified Code(s): E10.10 - Type 1 diabetes mellitus with ketoacidosis without coma (2) Acute kidney failure Status: Resolved Comment: (3) Hypophosphatemia Code(s): E83.39 - OTHER DISORDERS OF PHOSPHORUS METABOLISM Status: Resolved (4) Hyperlipidemia Code(s): E78.5 - HYPERLIPIDEMIA, UNSPECIFIED Status: Chronic Qualifiers: Hyperlipidemia type: unspecified Qualified Code(s): E78.5 - Hyperlipidemia , unspecified (5) Hypertension Code(s): I10 - ESSENTIAL (PRIMARY) HYPERTENSION Status: Chronic Qualifiers: Hypertension type: essential hypertension Qualified Code(s): I10 - Essential (primary) hypertension (6) Hypothyroidism Code(s): E03.9 - HYPOTHYROIDISM, UNSPECIFIED Status: Chronic Qualifiers: Hypothyroidism type: unspecified Qualified Code(s): E03.9 - Hypothyroidism , unspecified (7) Anemia Code(s): D64.9 - ANEMIA, UNSPECIFIED Status: Chronic Qualifiers: Anemia type: unspecified type Qualified Code(s): D64.9 - Anemia, unspecified (8) Weakness Code(s): R53.1 - WEAKNESS Status: Acute (9) Volume overload Code(s): E87.70 - FLUID OVERLOAD, UNSPECIFIED Status: Acute Qualifiers: Hypervolemia type: other Qualified Code(s): E87.79 - Other fluid overload - Plan * DKA resolved - on long and short acting insulin * * CRISTA resolved, in the context of CKD - will need outpatient follow up with Dr. Cee next week * * Volume overload from fluid resuscitation - lasix IV this morning, and echo ordered yesterday. * * Hypothyroid - needs f/u with PCP for adjustment of medication * * out of bed/strength assessment - PT ordered yesterday, pt reports they have not seen here - will request again * * dvt prophy - scd's * gi prophy - not indicated * code status full * * reviewed plan of care with patient, no questions or further needs at end of eval. If pt doing well, anticipate discharge this afternoon. * * 18:30 - pt re-evaluated and rales improved, she has been voiding frequently since the lasix. Echo obtained however will not be read until late tonight. Plan is to recheck kidneys tomorrow, review echo report, discuss meal insulin sliding scale with patient so that she is on both long and short acting insulin. If no overnight events, anticipate discharge in AM. She agrees with plan of care.
[2018-06-25] MEDS: Insulin Glargine 20 UNITS in Pre-Filled Syringe 1 EACH SC SCH (08:52)
--- NOTE | 2018-06-25 13:33 | RAD ---
PA AND LATERAL CHEST: HISTORY: Rales on exam. FINDINGS: The heart size is borderline. Small bilateral pleural effusions are seen. No pneumothoraces, lobar consolidation, or ashley pulmonary edema is identified. There are degenerative changes in the spine. IMPRESSION: Bilateral small pleural effusions. POS: [facility]
[2018-06-25] MEDS ORDERED: Famotidine 20 MG TAB PO SCH (21:00)
[2018-06-26] MEDS ORDERED: Calcium Carbonate 500 MG ChewTAB PO PRN (01:14)
[2018-06-26 04:56] LABS: #Basophils 0.1 thou/uL (0.0-0.2); #Eosinphils 0.3 thou/uL (0.0-0.7); #Lymphocytes 1.9 thou/uL (1.20-3.40); #Monocytes 0.8 thou/uL (0.11-0.59); #Neutrophils 4.4 thou/uL (1.40-6.50); %Basophils 1.1 % (0.0-1.0); %Eosinophils 3.4 % (0.0-10.0); %Lymphocytes 25.7 % (21.0-51.0); %Monocytes 10.3 % (0.0-10.0); %Neutrophils 59.6 % (42.0-75.0); Hemoglobin 9.5 g/dL (12.0-16.0); Mean Corpuscular HGB CONC 34.3 g/dL (32.0-36.0); Mean Corpuscular Hemoglobin 33.5 pg (27.0-31.0); Mean Corpuscular Volume 97.6 fL (78.0-98.0); Mean Platelet Volume 7.9 fL (7.4-10.4); Platelet Count 129 thou/uL (130-400); RBC Distribution Width 12.4 % (11.5-14.5); Red Blood Cell (RBC) Count 2.82 mill/uL (4.20-5.40); White Blood Cell (WBC) Count 7.4 thou/uL (4.8-10.8)
[2018-06-26 05:13] LABS: Anion Gap 11 mmol/L (10-20); BUN (Urea Nitrogen) 11 mg/dL (9.8-20.1); Calc. Creatinine Clearance 76 mL/min (70-130); Calcium 8.5 mg/dL (7.8-10.44); Carbon Dioxide 26 mmol/L (23-31); Chloride 103 mmol/L (98-107); Estimated GFR-MDRD 69; Glucose 121 mg/dL (80-115); Potassium 3.6 mmol/L (3.5-5.1); Sodium 136 mmol/L (136-145)
[2018-06-26] MEDS: Levothyroxine Sodium 50 MCG TAB PO SCH (05:27)
[2018-06-26 08:32] VITALS: BP 138/80; TEMP 98.2
[2018-06-26] MEDS: Insulin Glargine 20 UNITS in Pre-Filled Syringe 1 EACH SC SCH (09:45)
--- NOTE | 2018-06-26 18:08 | DIS ---
DATE OF ADMISSION: 06/22/2018 DATE OF DISCHARGE: 06/26/2018 CONSULTANTS: Dr. Cee of Nephrology. Dr. Mccallum of Pulmonology. MEDICATIONS: Reconciled at discharge. DISCONTINUED MEDICATIONS: Lisinopril due to the acute kidney injury. NEW MEDICATIONS: Lispro KwikPen U-100 sliding scale to use with meals; 0-149, none; 150-200, 2 units; 201-250 3 units, 251-300 4 units; 301-350, 5 units; 351 and above 6 units and call your physician. Prescription provided for 1 pen with refills to fill today, and another for 5 pens with refills to take to her PCP's office where it may be less expensive. MEDICATIONS TO CONTINUE: 1. Levothyroxine 50 mcg daily. 2. Vitamin D 400 units daily. 3. Tylenol as needed. CHANGED MEDICATION: Levemir is 20 units once daily in the morning. FINAL DIAGNOSES: 1. Diabetic ketoacidosis, resolved. 2. Type 1 diabetes. 3. Acute kidney injury secondary to diabetic ketoacidosis, resolved. 4. Hypertension. 5. Hypothyroidism. 6. Hyperkalemia, resolved. 7. Anemia, chronic, normocytic. 8. Small pleural effusions. HISTORY OF PRESENT ILLNESS: Ms. Yanez is a 62-year-old female with the above medical problems who presented to the emergency room with difficulty thinking, functioning and elevated blood sugars. She was found to be in DKA and admitted to the ICU. Patient was treated with vigorous IV fluids, IV insulin and her anion gap had closed the following day. She was started initially on 15 units of daily insulin with mealtime insulin and has tolerated this well. Her blood sugars have ranged from over the past 24 hours from 118-191. She has been started on mealtime insulin here by sliding scale, and educated about this to use at home, as she was not previously on short-acting insulin. I discussed with the patient the addition of the short-acting insulin for better control, as well as contacting her physician when she notices that her blood sugars are rising. For the acute kidney injury, she was vigorously hydrated and this has resolved. Here SHARATH-I was also discontinued in the hospital and should not be restarted unless/until directed by Dr. Cee who she will see in follow-up. By physical exam, she was volume overloaded, with her chest x-ray showing small pleural effusions. She received a small dose of Lasix the day prior to discharge. Her lung exam has totally cleared and her renal function has remained normal. An echocardiogram was performed, which is normal. The patient did have times of elevated blood pressure here; however, did not require any medication for this. Over the past 24 hours, her blood pressures have ranged from 128/77 to a high of 162/91. She was not started on any new blood pressure medication. She will hold the lisinopril until she follows up with Dr. Cee and is given instructions for when to resume this medication. She also will follow up closely with her primary care provider for monitoring of her blood pressure, her blood sugars, and at her thyroid level. The patient was found to have an elevated TSH here of 41 with a normal free T4 of 1.01. She reports that her Synthroid was adjusted in the outpatient setting recently and this will need to be followed up to ensure appropriate amount of thyroid replacement. The patient has been ambulating, overall feeling well, and meets criteria for discharge to home. PHYSICAL EXAMINATION: VITAL SIGNS: Temperature 98.2, pulse 74, respirations 16, saturations 95% on room air, blood pressure 138/80. GENERAL: Awake, alert, responsive, in no apparent distress, able to speak in full sentences. LUNGS: Clear to auscultation bilateral. HEART: Normal S1, S2, regular rate and rhythm, no audible murmurs. ABDOMEN: Soft. Present bowel sounds. Nontender, nondistended. EXTREMITIES: Lower extremities, no pitting edema. SKIN: No visible rashes. GAMBOA FINDINGS AND TEST RESULTS: 1. Renal panel today 136, 3.6, 103, 26, 11, 0.84, 121 with calcium of 8.5. 2. On admission, her hyperkalemia or further diagnosis. 3. Initial potassium was 6.9, creatinine 2.36, glucose was greater than 600. Initial metabolic panel, 125, 7.6, 86, less than 56, 3.67, 1149. 4. BNP was 584. 5. TSH 41, free T4 1.01. 6. CBC 7.49, 0.5, 27.6, 129. 7. Urinalysis on admission positive for glucose and ketones, beta hydroxybutyrate 13. 8. Echocardiogram shows an LV function normal, EF 50%-55%, mild mitral regurgitation and tricuspid regurgitation. 9. Chest x-ray on 06/25/2018 showed bilateral small pleural effusions. 10. Chest x-ray 06/22/2018, hyperinflation, no acute process. 11. Brain CT on 06/22/2018, no acute process. DIET: Carbohydrate consistent. ACTIVITY: As tolerated. I reviewed with the patient this hospitalization, the importance of followup, the change in medications, and the return for care precautions. I also reviewed with her daughter by phone per the patient's request. They demonstrate understanding. There were no questions or further needs at end of evaluation. Total time coordinating discharge is 40 minutes. NASIRD
== END 2018-06-26 13:50 | disposition home or self-care (01) | DRG 638 ==
LOC: ERS 08:14 → CCU 14:59 → T4-B 06-23 17:49
PROVIDERS: ADMIT Internal Medicine; ATTEND Internal Medicine
DX: E10.10 Type 1 diabetes mellitus with ketoacidosis without coma (principal); N17.9 Acute kidney failure, unspecified; E87.2 Acidosis; N18.4 Chronic kidney disease, stage 4 (severe); J90 Pleural effusion, not elsewhere classified; Z79.4 Long term (current) use of insulin; E87.5 Hyperkalemia; E03.9 Hypothyroidism, unspecified; E78.5 Hyperlipidemia, unspecified; I12.9 Hypertensive chronic kidney disease with stage 1 through stage 4 chronic kidney disease, or unspecified chronic kidney disease; E10.22 Type 1 diabetes mellitus with diabetic chronic kidney disease; E86.0 Dehydration; D64.9 Anemia, unspecified; E83.39 Other disorders of phosphorus metabolism; E87.70 Fluid overload, unspecified
CPT/HCPCS: 36415; 36416; 36556; 51701; 70450; 71045; 71046; 80048; 80053; 80307; 81003; 82010; 82140; 82330; 82553; 82803; 83605; 83690; 83735; 83880; 83930; 84100; 84439; 84443; 84484; 85025; 87040; 87086; 93005; 93306; 94640; 96361; 96365; 96366; 96368; 96374; 96375; 96376; A4216; A4217; A4353; G8978-GP-CJ; G8979-GP-CJ; G8980-GP-CJ; J1642; J1644; J1815; J1940; J2250; J2405; J7050; J7611; S0028

== ENCOUNTER 2019-09-07 08:32 | Inpatient (IN) | payer OTHER, SELFPAY ==
--- NOTE | 2019-09-07 09:13 | RAD ---
CHEST 1 VIEW: Date: 09/07/19 HISTORY: Tachypnea. TIA. COMPARISON: 07/09/18. FINDINGS: Cardiac silhouette is magnified by projection. Pulmonary vasculature is unremarkable. Mediastinum is midline. No confluent air space consolidation or evidence of pneumothorax. security monitor leads over lie the chest. IMPRESSION: No active cardiopulmonary abnormalities are demonstrated. POS: [facility]
[2019-09-07 09:22] LABS: #Lymphocytes 1.9 thou/uL (1.20-3.40); #Monocytes 1.6 thou/uL (0.11-0.59); #Neutrophils 12.8 thou/uL (1.40-6.50); %Basophils 0.3 % (0.0-1.0); %Eosinophils 0.2 % (0.0-10.0); %Lymphocytes 11.8 % (21.0-51.0); %Monocytes 9.5 % (0.0-10.0); %Neutrophils 78.2 % (42.0-75.0); Hemoglobin 10.8 g/dL (12.0-16.0); Mean Corpuscular HGB CONC 29.4 g/dL (32.0-36.0); Mean Corpuscular Hemoglobin 31.3 pg (27.0-31.0); Mean Platelet Volume 8.9 fL (7.4-10.4); Platelet Count 263 thou/uL (130-400); RBC Distribution Width 12.3 % (11.5-14.5); Red Blood Cell (RBC) Count 3.45 mill/uL (4.20-5.40); White Blood Cell (WBC) Count 16.4 thou/uL (4.8-10.8)
[2019-09-07] MEDS ORDERED: Insulin Regular 300 UNITS/3 ML VIAL ONE (09:28)
[2019-09-07] MEDS ORDERED: HUMULIN R 100 UNITS in Sodium Chloride 0.9% 100 ML IVPB SCH ×2 (09:30→11:15)
[2019-09-07 09:39] LABS: Band 23 % (5-11); Burr Cells MODERATE= 6-15 cells (100X) (0-1/hpf); Lymphocytes 15 % (21-51); MDiff Complete? YES; Macrocytosis SLIGHT = 6-15 cells (100X) (0-5/hpf); Metamyelocyte 2 % (0-0); Monocytes 4 % (0-10); Neutrophil 56 % (42-75); Polychromasia SLIGHT = 2-3 cells (100X) (0-2/hpf)
[2019-09-07 09:41] LABS: ALT (SGPT) 14 U/L (8-55); AST (SGOT) 17 U/L (5-34); Albumin 4.3 g/dL (3.4-4.8); Alkaline Phosphatase 91 U/L (40-110); BUN (Urea Nitrogen) 51 mg/dL (9.8-20.1); Bilirubin, Total 0.5 mg/dL (0.2-1.2); Calc. Creatinine Clearance 0 mL/min (70-130); Calcium 9.9 mg/dL (7.8-10.44); Carbon Dioxide Less than 8 mmol/L (23-31); Chloride 89 mmol/L (98-107); Estimated GFR-MDRD 14; Globulin 2.9 g/dL (2.4-3.5); Glucose 849 mg/dL (80-115); Lipase 30 U/L (8-78); Magnesium 2.4 mg/dL (1.6-2.6); Phosphorus 7.4 mg/dL (2.3-4.7); Potassium 5.6 mmol/L (3.5-5.1); Protein, Total 7.2 g/dL (6.0-8.3); Sodium 127 mmol/L (136-145)
--- NOTE | 2019-09-07 09:52 | CT ---
CT HEAD: Date: 09/07/19 COMPARISON: 06/22/18. HISTORY: Altered mental status. TECHNIQUE: Axial CT imaging at 5 mm intervals from the vertex through the skull base without contrast. FINDINGS: The imaged paranasal sinuses and mastoid air cells are well aerated. No displaced calvarial fracture is noted. No intracranial hemorrhage, midline shift, mass effect, or ventricular enlargement is noted. IMPRESSION: No acute findings. POS: [facility]
[2019-09-07] MEDS ORDERED: Sodium Chloride 0.9% 1,000 ML IV PRN ×4 (11:03)
[2019-09-07] MEDS ORDERED: NS 0.9% w/ 20 MEQ KCL 1,000 ML IV PRN (11:03)
[2019-09-07] MEDS ORDERED: Dextrose 5 %-0.45 % NaCl 1,000 ML IV PRN (11:03)
[2019-09-07] MEDS ORDERED: CCU Electrolyte Replacement 1 EACH IVPB ONE (11:03)
[2019-09-07] MEDS ORDERED: Potassium Chloride 20 MEQ TAB PO PRN (11:15)
[2019-09-07] MEDS ORDERED: PHOS-NAK 1 PKT PACK PO PRN ×2 (11:15)
[2019-09-07] MEDS ORDERED: Potassium Phosphate 15 MMOL in Sodium Chloride 0.9% 250 ML 250 ML IV PRN (11:15)
[2019-09-07] MEDS ORDERED: Potassium Chloride 40 MEQ in Premix Bag 1 BAG IVPB PRN (11:15)
[2019-09-07] MEDS ORDERED: Potassium Phosphate 12 MMOL in Sodium Chloride 0.9% 250 ML 250 ML IV PRN (11:15)
[2019-09-07] MEDS ORDERED: Potassium Chloride 40 MEQ in Sodium Chloride 0.9% 250 ML 250 ML IVPB PRN (11:15)
[2019-09-07] MEDS ORDERED: Magnesium 2 GM/50 ML 2 GM in Premix Bag 1 BAG IVPB PRN (11:15)
[2019-09-07] MEDS ORDERED: Magnesium Oxide 400 MG TAB PO PRN ×2 (11:15)
[2019-09-07] MEDS ORDERED: Potassium Phosphate 9 MMOL in Sodium Chloride 0.9% 100 ML IVPB PRN (11:15)
[2019-09-07] MEDS ORDERED: CCU ELECTROLYTE REPLACEMENT PROTOCOL FS PRN (11:15)
[2019-09-07 11:16] LABS: Bilirubin Negative (Negative); Blood, Urine Negative (Negative); Clarity Clear (Clear); Glucose, Urine (Dipstick) Greater than 1000 mg/dL (Negative); Leukocyte Negative Leu/uL (Negative); Nitrite Negative (Negative); Protein, Urine (Dipstick) 20 mg/dL (Neg-Trace); Urobilinogen Normal mg/dL (Less than 2)
[2019-09-07 11:46] LABS: BUN (Urea Nitrogen) 47 mg/dL (9.8-20.1); Calc. Creatinine Clearance 0 mL/min (70-130); Chloride 97 mmol/L (98-107); Estimated GFR-MDRD 17; Potassium 4.9 mmol/L (3.5-5.1); Sodium 130 mmol/L (136-145)
[2019-09-07 12:02] LABS: Carbon Dioxide Less than 8 mmol/L (23-31); Glucose 759 mg/dL (80-115)
[2019-09-07] MEDS: Piperacillin/Tazobactam 3.375 GM in Sodium Chloride 0.9% 100 ML IVPB SCH ×3 (12:49→23:19)
[2019-09-07] MEDS ORDERED: Digoxin 0.5 MG/2 ML AMP ONE (13:14)
[2019-09-07] MEDS: Sodium Bicarb 50 MEQ/50 ML VIAL IVP SCH ×2 (13:29→14:29)
[2019-09-07] MEDS ORDERED: Norepinephrine 8 MG in Dextrose 5% in Water 242 ML IVPB PRN (13:31)
[2019-09-07] MEDS ORDERED: Norepinephrine 8 MG/0.9% NS 250 ML IVPB SCH (13:45)
[2019-09-07] MEDS ORDERED: Sodium Bicarb 50 MEQ/50 ML Abboject 8.4% SYRINGE IVP SCH (13:45)
[2019-09-07] MEDS ORDERED: Sodium Bicarb 50 MEQ/50 ML VIAL ONE (13:55)
[2019-09-07] MEDS: NS 0.9% w/ 20 MEQ KCL 1,000 ML IV PRN ×2 (14:22→16:31)
[2019-09-07] MEDS: Sodium Chloride 0.9% 1,000 ML IV SCH ×3 (14:45→16:45)
--- NOTE | 2019-09-07 14:55 | RAD ---
PORTABLE CHEST ONE VIEW: 09/07/2019 2;28 p.m. HISTORY: Central line placement. COMPARISON: Exam done at 8:49 a.m. on the same day. FINDINGS: There has been interval placement of a right subclavian central line with the tip in the projection o f the SVC. No pneumothorax is seen. POS: [facility]
[2019-09-07 14:58] LABS: Actual Bicarbonate (HCO3a) 5.5 mEq/L (22-28); Base Excess (BEa) -20.3 mEq/L (-2.0 to +3.0); Calcium, Ionized 1.16 mmol/L (1.12-1.30); Carboxyhemoglobin (COHb) 0.4 gm% (0.0-3.0); Hemoglobin (Hb) 9.3 g/dL (12.0-16.0); Potassium - ABG Lab 4.29 mmol/L (3.70-5.30)
[2019-09-07 14:59] LABS: ALV-art Gradient 28.855 (0-20); CO2 Tension 14.3 mmHg (35.0-45.0); Puncture Site RRA; pH, Arterial 7.21 (7.35-7.45)
--- NOTE | 2019-09-07 15:52 | CON ---
DATE OF CONSULTATION: 09/07/2019 REASON FOR CONSULTATION: DKA. HISTORY OF PRESENT ILLNESS: This is a 63-year-old female, who was admitted to the hospitalist service earlier today with severely elevated blood sugars, slurred speech and profound hypovolemia. I was called by the nursing staff as the patient was being moved from the Intermediate Care Unit to the CCU because of persistent hypotension. At the time I was called, the patient had only received 3 L of fluid for resuscitative purposes. When I walked to the room, Oleg Elmore from the Trauma Service was putting in a central line at the request of the hospitalist for proposed initiation of Levophed. The patient says she has been feeling poorly for about a day. She is surprisingly alert and oriented at this point and actually looks okay. PAST MEDICAL HISTORY: 1. Type 1 diabetes mellitus. 2. Anemia. 3. Hypertension. 4. Chronic kidney disease. 5. Hypothyroidism. SOCIAL HISTORY: Never smoker. Does not consume alcohol. Lives with her and her daughter. ALLERGIES: MORPHINE. PAST SURGICAL HISTORY: Lumpectomy. MEDICATIONS: Prior to admission, 1. Levemir insulin. 2. Levothyroxine. REVIEW OF SYSTEMS: Twelve-point review of systems is otherwise negative. PHYSICAL EXAMINATION: VITAL SIGNS: Temperature 93.3, pulse 89, blood pressure 87/45, O2 saturation 100%. GENERAL: She is awake, alert, and in no profound distress. HEENT: Pupils reactive. Sclerae anicteric. Oropharynx clear. NECK: No adenopathy or JVD. CHEST: Clear without wheezing or rhonchi. CARDIAC: S1 and S2. Regular without murmur. ABDOMEN: Soft, nontender to palpation. LUNGS: Clear. EXTREMITIES: No clubbing, cyanosis, or edema. LABORATORY DATA: Sodium 130, potassium 4.9, chloride 97, CO2 less than 8, BUN 47, creatinine 2.8, glucose 529. White blood cell count 16.4, hematocrit 36.7, and platelet count 263. ABG; pH of 7.21, pCO2 of 14, pO2 of 103, that is on room air. IMAGING STUDIES: Chest x-ray shows adequate central line placement without evidence of mass, effusion, or infiltrate. Brain CT shows no acute findings. ASSESSMENT: 1. Diabetic ketoacidosis. 2. Profound volume depletion. 3. Metabolic acidosis secondary to diabetic ketoacidosis. 4. Hypotension secondary to volume depletion. PLAN: The patient will be fluid resuscitated. I would avoid starting vasopressors in this patient. After she is given adequate volume resuscitation, then she can go back on the DKA protocol with the fluids. She does not need bicarbonate as her pH is above 7.20. She will continue with the insulin drip. We will replace electrolytes as needed. The above involved 70 minutes of critical care time. Job ID: [id number]
[2019-09-07 15:54] LABS: Anion Gap 26 mmol/L (10-20); BUN (Urea Nitrogen) 43 mg/dL (9.8-20.1); Calc. Creatinine Clearance 0 mL/min (70-130); Calcium 7.6 mg/dL (7.8-10.44); Carbon Dioxide 8 mmol/L (23-31); Chloride 108 mmol/L (98-107); Estimated GFR-MDRD 18; Glucose 459 mg/dL (80-115); Potassium 4.5 mmol/L (3.5-5.1); Sodium 137 mmol/L (136-145)
[2019-09-07 16:13] VITALS: BMI 22.9
[2019-09-07] MEDS ORDERED: Acetaminophen 325 MG TAB PO PRN (17:31)
[2019-09-07] MEDS ORDERED: Heparin 10,000 UNITS/ 10 ML VIAL SLOW IVP SCH (18:30)
[2019-09-07] MEDS ORDERED: Heparin 25,000 units/D5W 500 ML IVPB SCH (18:30)
[2019-09-07] MEDS: D5 1/2 NS w/20 mEq KCL 1,000 ML IV PRN ×2 (18:36→23:21)
--- NOTE | 2019-09-07 18:36 | HP ---
CHIEF COMPLAINT: Change in mental status. HISTORY OF PRESENT ILLNESS: The patient is a 63-year-old female with a history of type 1 diabetes, who presents to the hospital with complaints of change in mental status. Per family, the patient has been undergoing a significant amount of stress due to some close family , and the patient has been taking her insulin. However, she has not been eating or drinking very much. The patient denies any fevers or chills, any urinary retention, any cough, or any headaches. When I saw the patient, she was able to conversate with me. However, when she came into the ER, she had some slurred speech, which had then resolved. Family was at bedside. The patient has had a previous history of DKAs in the past. The patient did state that her sugars at home for the past day were reading very high or above 400. She did take her insulin; however, according to her, she has not been eating very much. PAST MEDICAL HISTORY: 1. She is type 1 diabetic. 2. She has a history of DKA. 3. Hypertension. 4. Hypothyroidism. 5. Diabetes. 6. Gastroparesis. 7. Chronic normocytic anemia. 8. Dyslipidemia. PAST SURGICAL HISTORY: She has had no surgical intervention. SOCIAL HISTORY: She is , lives at home with her . No history of tobacco, alcohol use, or drug use. FAMILY HISTORY: History of diabetes, hypertension, heart disease members. REVIEW OF SYSTEMS: All negative except for the ones mentioned above in the HPI. ALLERGIES: SHE IS ALLERGIC TO MORPHINE. MEDICATIONS: 1. Lisinopril 20 mg daily. 2. Crestor 20 mg daily. 3. Synthroid 50 mcg daily. 4. Insulin 70/30, 25 mg twice a day. PHYSICAL EXAMINATION: VITAL SIGNS: As of the following; temperature of 93.9 rectally. She is 93 to 115, atrial fibrillation. Respirations are 18, and blood pressure is 90/40. GENERAL: The patient is awake, alert, and oriented x2. Does not appear in any distress. She states she feels much better since she has been here. HEENT: Normocephalic and atraumatic. She does have significant dry mucous membranes. CV: S1 and S2 present; however, it is irregularly irregular. LUNGS: Clear to auscultation. No rhonchi or wheezes noted. ABDOMEN: Soft and nontender. Bowel sounds are present x2. EXTREMITIES: No edema. Pedal pulses present x2. Neurovascular-wagoner, she is able to move all 4 extremities. SKIN: No cuts, lesions, or bruises noted. LABORATORY RESULTS: She did have a CT and a chest x-ray. The CT did not indicate any acute abnormalities. Her urine was negative. Her chest x-ray also indicated hyperinflated lungs, however, was essentially normal. She did have WBCs of 16.4 with bandemia, hemoglobin was 10.8 and hematocrit of 36.7. Chemistry; sodium of 130, potassium was 5.6. Her creatinine on her arrival was 3.34. Her anion gap was unable to be calculated, and her bicarb was less than 8, and her sugar was 759. ASSESSMENT AND PLAN: The patient is a 63-year-old female, who presents to the hospital with change in mental status. 1. Sepsis. 2. Acute metabolic encephalopathy. 3. Diabetic ketoacidosis. 4. Anion gap metabolic acidosis. 5. Acute kidney injury. 6. Acute atrial fibrillation with rapid ventricular response. PLAN: 1. We will start the patient on broad-spectrum antibiotics. We will start her on DKA protocol. She has received 2.5 L of normal saline bolus. We will start her on Levophed drip. We will transfer her to the ICU, put in a central line. Also consult Pulmonology and Cardiology. Her CHADS-VASc score is greater than 2, she will need anticoagulation. We will get an echocardiogram and check a TSH. Also, we will get a renal ultrasound for her acute kidney injury. 2. We will keep her n.p.o. for now. Replace electrolytes. 3. We will put her on DVT prophylaxis with subcu heparin. Family also updated. Job ID: [id number]
[2019-09-07 18:41] LABS: Bilirubin 2+ (Negative); Blood, Urine Negative (Negative); Clarity Clear (Clear); Glucose, Urine (Dipstick) 500 mg/dL (Negative); Leukocyte 75 Leu/uL (Negative); Nitrite Negative (Negative); Protein, Urine (Dipstick) 30 mg/dL (Neg-Trace); RBC/HPF 0-3 HPF (0-3); Squamous Epithelial 0-3 HPF (0-3)
[2019-09-07 18:42] LABS: Bacteria/HPF 1+ HPF (None Seen); Urine Culture Reflex Yes Yes
--- NOTE | 2019-09-07 19:00 | CON ---
DATE OF CONSULTATION: 09/07/2019 REASON FOR CONSULTATION: Atrial fibrillation with RVR. HISTORY OF PRESENT ILLNESS: Ms. Yanez is a pleasant 63-year-old white female, who comes to the hospital for altered mentation. She has had several episodes of DKA in the past. She has type 1 diabetes. She comes in for the same situation. She has slurred speech and hypovolemia. She has been transferred to the ICU. She was also found to be in atrial fibrillation, heart rate in the low 100s. On my evaluation, Ms. Yanez is awake and able to answer questions appropriately. Blood pressure is borderline low, likely from volume depletion. PAST MEDICAL HISTORY: 1. Type 1 diabetes. 2. Anemia. 3. Hypertension. 4. Chronic kidney disease. 5. Hypothyroidism. 6. Multiple admissions for DKA in the past. SOCIAL HISTORY: No alcohol, tobacco, or drugs. OUTPATIENT MEDICATIONS: 1. Levemir insulin. 2. Levothyroxine. PAST SURGICAL HISTORY: Lumpectomy. ALLERGIES: MORPHINE. REVIEW OF SYSTEMS: A 12-point review of systems was done and was all negative unless stated in the history of present illness PHYSICAL EXAMINATION: VITAL SIGNS: Temperature 97.2, pulse 96, respiratory rate 19, saturating 100% on room air, blood pressure 106/52. GENERAL: Awake, alert. She is oriented to person, place, difficulty with time, but gets it right, in no distress. HEENT: Normocephalic and atraumatic. NECK: Supple. LUNGS: Clear. CARDIOVASCULAR: S1 and S2. No S3 or S4. No murmurs. Irregularly irregular heart rate. ABDOMEN: Soft. Positive bowel sounds. EXTREMITIES: No edema. SKIN: Warm and dry. LABORATORY DATA: Laboratory work was reviewed. White count of 16, hemoglobin of 10, hematocrit 36, platelet count of 263. ABG was reviewed. Chemistries were reviewed. Creatinine of 2.62, down from 3.3 earlier this morning. GFR of 18. Glucose in the 400 range. Calcium 7.6. UA was reviewed, unremarkable. Beta hydroxybutyrate was 12. IMAGING STUDIES: EKG was reviewed, atrial fibrillation with RVR, and heart rate in the low 100s. ASSESSMENT AND PLAN: 1. Atrial fibrillation with rapid ventricular response. Actually, heart rate in the 90s to low 100s, likely related to hypotension and volume depletion. Would correct volume depletion first before adding any AV alicia blocking agents. I would stay away from any more digoxin at this time given the likelihood of her developing hypokalemia with more insulin with an insulin drip. This could make her digitoxic. I would stay away from any beta-blockers or calcium-channel blockers given her borderline low blood pressure. No amiodarone for now. Most likely, her heart rate will come down once her volume is reinstated. 2. CHADS-VASc score would be 2 for being a female and diabetes. This would make her be a candidate for full anticoagulation. Currently, we will do subcu Lovenox full dose. 3. DKA per Primary Team. 4. Hypotension, likely volume depletion. Thank you for letting us participate in the care of your patient. We will follow. Job ID: [id number]
[2019-09-07 19:45] LABS: Hemoglobin 8.7 g/dL (12.0-16.0); Platelet Count 195 thou/uL (130-400)
[2019-09-07 19:59] LABS: Anion Gap 14 mmol/L (10-20); BUN (Urea Nitrogen) 38 mg/dL (9.8-20.1); Calc. Creatinine Clearance 27 mL/min (70-130); Calcium 7.4 mg/dL (7.8-10.44); Carbon Dioxide 14 mmol/L (23-31); Chloride 117 mmol/L (98-107); Estimated GFR-MDRD 22; Glucose 198 mg/dL (80-115); Potassium 4.2 mmol/L (3.5-5.1); Sodium 141 mmol/L (136-145)
[2019-09-07] MEDS ORDERED: Heparin 5,000 UNITS/ML VIAL SC SCH (21:00)
[2019-09-07] MEDS ORDERED: Enoxaparin Sodium 40 MG/0.4 ML SYRINGE SC SCH (21:00)
--- NOTE | 2019-09-08 00:37 | CON ---
DATE OF CONSULTATION: 09/07/2019 CONSULTING PHYSICIAN: Dr. Judd. REASON FOR CONSULTATION: Acute kidney injury, acidosis. REASON FOR ADMISSION: Altered mentation. HISTORY OF PRESENT ILLNESS: This is a 63-year-old female with history of type 1 diabetes, DKA, hypertension, hypothyroidism, diabetes, came to the hospital with not feeling well, was found to in DKA and being treated. She also has acute kidney injury and acidosis. Nephrology consulted. PAST MEDICAL HISTORY: Type 1 diabetes, DKA, hypertension, hypothyroidism, gastroparesis, anemia, hyperlipidemia. PAST SURGICAL HISTORY: None. HOME MEDICATIONS: 1. Lisinopril. 2. Crestor. 3. Synthroid. 4. Insulin 70/30. ALLERGIES: TO MORPHINE. SOCIAL HISTORY: No smoking, alcohol, or illicit drugs. FAMILY HISTORY: Positive for diabetes. REVIEW OF SYSTEMS: CONSTITUTIONAL: Negative for weight loss or gain, ability to conduct usual activities. SKIN: Negative for rash, itching. EYES: Negative for double vision, pain. ENT/MOUTH: Negative for nose bleeding, neck stiffness, pain, tenderness. CARDIOVASCULAR: Negative for palpitations, dyspnea on exertion, orthopnea. RESPIRATORY: Negative for shortness of breath, wheezing, cough, hemoptysis, fever or night sweats. GASTROINTESTINAL: Negative for poor appetite, abdominal pain, heartburn, nausea, vomiting, constipation, or diarrhea. GENITOURINARY: Negative for urgency, frequency, dysuria, nocturia. MUSCULOSKELETAL: Negative for pain, swelling. NEUROLOGIC/PSYCHIATRIC: Negative for anxiety, depression. ALLERGY/IMMUNOLOGIC: Negative for skin rash, bleeding tendency. PHYSICAL EXAMINATION: GENERAL: This is a thin built female, in no apparent distress. VITAL SIGNS: Temperature 97.7, pulse 90, respiratory rate 18, blood pressure 101/44. HEENT: Atraumatic, normocephalic. Oral mucosa is moist. NECK: Supple. CV: S1 and S2. Rate and rhythm regular. RESPIRATORY: Clear. GASTROINTESTINAL: Abdomen is soft. MUSCULOSKELETAL: No tenderness. No edema. DERMATOLOGIC: No skin rash. NEUROLOGIC: Alert and awake. PSYCHIATRIC: Mood and affect normal. LABORATORY DATA: Potassium 4.2, BUN is 38, and creatinine is 2.2. ASSESSMENT AND PLAN: 1. Acute kidney injury secondary to volume depletion and diabetic ketoacidosis. Agree with hydration. 2. Acidosis. Continue hydration. 3. Edema, controlled. 4. Anemia. 5. History of hypertension. 6. Metabolic acidosis with diabetic ketoacidosis and possible lactic acidosis. 7. Hypocalcemia. 8. Hyperphosphatemia. 9. Recheck labs. Continue hydration. Will continue DKA protocol. Continue close monitoring. Thank you for the consult. Job ID: [id number]
[2019-09-08] MEDS: D5 1/2 NS w/20 mEq KCL 1,000 ML IV PRN ×2 (04:38→08:22)
[2019-09-08 05:41] LABS: Anion Gap 13 mmol/L (10-20); BUN (Urea Nitrogen) 36 mg/dL (9.8-20.1); Calc. Creatinine Clearance 31 mL/min (70-130); Calcium 7.4 mg/dL (7.8-10.44); Carbon Dioxide 14 mmol/L (23-31); Chloride 115 mmol/L (98-107); Estimated GFR-MDRD 25; Glucose 202 mg/dL (80-115); Potassium 4.6 mmol/L (3.5-5.1); Sodium 137 mmol/L (136-145)
[2019-09-08] MEDS: Piperacillin/Tazobactam 3.375 GM in Sodium Chloride 0.9% 100 ML IVPB SCH (06:03)
[2019-09-08 07:29] LABS: Base Excess-Venous -23.9 mmol/L (-2.0 to 3.0); CO2 Tension (PvCO2) 13.5 mmHg (40.0-50.0); Calcium, Ionized 1.11 mmol/L (See Comments:); Chloride 98 mmol/L (98-107); Hemoglobin - Calc 12.7 g/dL (12.0-16.0); Potassium 5.2 mmol/L (3.5-5.1); Sodium 123 mmol/L (138-145); T. Carbon Dioxide Less than 5.0 mmol/L (22.0-28.0); vO2 Saturation-calc 82.1 % (60.0-85.0)
[2019-09-08] MEDS ORDERED: HumaLOG 300 UNITS/3 ML VIAL SC PRN (08:41)
[2019-09-08] MEDS ORDERED: Dextrose 50% Abboject 50 ML SYRINGE IVP PRN (08:41)
[2019-09-08] MEDS ORDERED: Dextrose 5% in Water 1,000 ML IV PRN (08:41)
[2019-09-08] MEDS ORDERED: Levothyroxine Sodium 50 MCG TAB PO SCH (08:45)
[2019-09-08] MEDS ORDERED: FLU VACC QS2019-20(6MOS UP)/PF 60 MCG/0.5 ML SYRINGE IM ONE (09:00)
[2019-09-08] MEDS ORDERED: Prevnar 13-Val Conj/PF 0.5 ML SYRINGE IM ONE (09:00)
--- NOTE | 2019-09-08 09:02 | OP ---
DATE OF PROCEDURE: 09/07/2019 PROCEDURE PERFORMED: Right subclavian central venous catheter placement. INDICATIONS: Hyperglycemia with hypotension requiring central venous access for possible vasopressor use. DESCRIPTION OF PROCEDURE: The patient is a 63-year-old woman, who was recently admitted with DKA, required aggressive fluid resuscitation and possible vasopressor use. We were asked to place a central line for the patient. The patient was identified and time-out was held. The right clavicle area was prepped and draped in the normal sterile fashion. 1 mL of lidocaine was used to create a wheal inferior to the clavicle, which time the introducer needle was directed towards the sternal notch. Good flush of blood was obtained. The Seldinger wire was advanced without difficulty. Dilator was introduced. The triple-lumen catheter was then placed over the wire. Wire was removed without difficulty. All three lines aspirated blood and were flushed with normal saline again without difficulty. The line was sutured in place, covered with Biopatch dressing. The placement was confirmed by chest x-ray. There was no evidence of pneumothorax, and the line was in correct placement. The patient tolerated the procedure well. There was no blood loss. Job ID: [id number]
--- NOTE | 2019-09-08 09:34 | PRG ---
DATE OF SERVICE: 09/08/2019 SUBJECTIVE: The patient is in the ICU status post uncontrolled diabetes and hypovolemia. This morning, she is much better, awake, alert, and responsive. She takes 25 units of Levemir in the morning. OBJECTIVE: VITAL SIGNS: Blood pressure 149/72, pulse 73, respiratory rate 18, pulse 80, and saturations 90% on room air. GENERAL: She is awake, alert, and responsive. CHEST: Decreased breath sounds. No wheezing. CARDIAC: Normal S1 and S2. No gallops. ABDOMEN: No mass. LABORATORY DATA: BUN and creatinine are 36 and 1.9. GFR is 20. Blood sugar is 250. She is on insulin3 units /hr improved her anion gap significantly. bicarb is 14. This may be on the basis of her azotemia, which is improved. Urine output is good. ASSESSMENT: 1. Uncontrolled diabetes. 2. Hypovolemia. 3. Renal failure. PLAN: Continue present insulin protocol. She can probably be started back on her Levemir this morning and continue aggressive sliding scale. Pulmonary will follow while in the ICU. Job ID: [id number] MTDD
[2019-09-08] MEDS: Insulin Glargine 25 UNITS in Pre-Filled Syringe 1 EACH SC SCH (09:43)
[2019-09-08] MEDS: Sodium Chloride 0.45% 1,000 ML IV SCH ×2 (09:47→23:35)
--- NOTE | 2019-09-08 10:42 | PRG ---
DATE OF SERVICE: 09/08/2019 SUBJECTIVE: Patient was seen and examined at bedside and overnight events noted. Patient denies any shortness of breath or chest pain or palpitation. No history of nausea or vomiting or diarrhea or fever or chills or cramps. OBJECTIVE: GENERAL: This is a thin-built female, in no apparent distress. VITAL SIGNS: Temperature 94. Heart rate 82. Respiratory rate 20. Blood pressure 158/84. HEENT: Atraumatic, normocephalic. Oral mucosa is moist NECK: Supple. CARDIOVASCULAR: S1, S2 heard. Rate and rhythm regular. RESPIRATORY: Clear to auscultation. GASTROINTESTINAL: Abdomen is soft. MUSCULOSKELETAL: No tenderness. No edema. DERMATOLOGIC: No skin rash. NEUROLOGIC: Alert and awake and oriented X3. No focal neurologic deficits. Moving all the extremities. PSYCHIATRIC: Mood and affect normal. LABORATORY DATA: Potassium 4.6, BUN is 36, and creatinine is 1.9. ASSESSMENT AND PLAN: 1. Acute kidney injury, getting better. 2. Acidosis secondary to diabetic ketoacidosis, better. Consider bicarb drip after adequate hydration. 3. History of hypertension. 4. Hypocalcemia. 5. Hyperphosphatemia. Kidney numbers are better. Avoid nephrotoxins and continue hydration as tolerated. Consider bicarb drip if bicarb remains low. Job ID: [id number]
--- NOTE | 2019-09-08 18:30 | PDOC.CPN ---
- Subjective Date: 09/08/19 Time: 18:30 Interval history: She is doing much better. No chest pain. Mentation is back to normal. Tolerating PO. - Review of Systems General: denies: fever/chills, weight/appetite/sleep changes, night sweats, fatigue Respiratory: denies: cough, congestion, shortness of breath, exercise intolerance Cardiovascular: denies: chest pain, palpitation, edema, paroxysmal nocturnal dyspnea, orthopnea Gastrointestinal: denies: nausea, vomiting, diarrhea, constipation, abd pain, GI bleeding Musculoskeletal: denies: pain, tenderness, stiffness, swelling, arthritis/ arthralgias Neurological: denies: numbness, syncope, seizure, weakness - Objective Allergies/Adverse Reactions: Allergies Allergy/AdvReac Type Severity Reaction Status Date / Time morphine Allergy Emesis Verified 05/30/15 15:54 Visit Medications: Current Medications Acetaminophen (Tylenol) 650 mg PO Q4H PRN PRN Reason: Headache/Fever/Mild Pain (1-3) Dextrose/Water (Dextrose 50%) 25 gm IVP PRN PRN PRN Reason: HYPOGLYCEMIA PROTOCOL Enoxaparin Sodium (Lovenox) 40 mg SC 2100 JANICE Last Admin: 09/07/19 21:12 Dose: 40 mg Glucagon (Glucagon) 1 mg IM PRN PRN PRN Reason: HYPOGLYCEMIA PROTOCOL Potassium Chloride 40 meq/ (Sodium Chloride) 270 mls @ 135 mls/hr IVPB ASDIR PRN PRN Reason: FOR SERUM K+ 2.5 - 3.5 Potassium Chloride 40 meq/ (Device) 100 mls @ 50 mls/hr IVPB ASDIR PRN PRN Reason: FOR SERUM K+ 2.5 - 3.5 Magnesium Sulfate 1 gm/ Sodium (Chloride) 102 mls @ 102 mls/hr IV PRN PRN PRN Reason: MAG LEVEL 1.4 - 2.0 Magnesium Sulfate 2 gm/ Device 50 mls @ 50 mls/hr IVPB ASDIR PRN PRN Reason: MAGNESIUM < 1.4 Potassium Phosphate 9 mmol/ (Sodium Chloride) 103 mls @ 25.75 mls/hr IVPB ASDIR PRN PRN Reason: Phosphate 1.0-1.8 Potassium Phosphate 12 mmol/ (Sodium Chloride) 254 mls @ 63.5 mls/hr IV ASDIR PRN PRN Reason: Serum phosphate 0.5-0.9 Potassium Phosphate 15 mmol/ (Sodium Chloride) 255 mls @ 63.75 mls/hr IV ASDIR PRN PRN Reason: Serum Phos < 0.5 Insulin Glargine 25 units/ (Miscellaneous Medication) 0.25 mls @ 0 mls/hr SC QAM [facility] Last Admin: 09/08/19 09:43 Dose: 0.25 mls Dextrose/Water (D5w) 1,000 mls @ 0 mls/hr IV INF PRN PRN Reason: HYPOGLYCEMIA PROTOCOL Sodium Chloride (1/2 Normal Saline) 1,000 mls @ 75 mls/hr IV .[id number] [facility] Last Admin: 09/08/19 09:47 Dose: 1,000 mls Piperacillin Sod/Tazobactam (Sod 2.25 gm/ Sodium Chloride) 100 mls @ 200 mls/ hr IVPB Q6HR [facility] Insulin Human Lispro (Humalog) 0 units SC .AGGRESSIVE SLIDING PRN; Protocol PRN Reason: AGGRESSIVE SLIDING SCALE Last Admin: 09/08/19 14:00 Dose: 6 unit Levothyroxine Sodium (Synthroid) 50 mcg PO 0600 [facility] Magnesium Oxide (Magnesium Oxide) 400 mg PO BIDPRN PRN PRN Reason: FOR SERUM MAG 1.4 - 2.0 Magnesium Oxide (Magnesium Oxide) 800 mg PO PRN PRN PRN Reason: FOR SERUM MAG < 1.4 Miscellaneous Medication (Phos-Nak) 1 pkt PO TIDPRN PRN PRN Reason: FOR PHOS LEVEL 1.0 - 1.8 Miscellaneous Medication (Phos-Nak) 2 pkt PO TIDPRN PRN PRN Reason: FOR PHOS LEVEL 0.5 - 1.0 Ccu Electrolyte (Replacement Protocol) 0 each FS PRN PRN PRN Reason: FOR ELECTROLYTE REPLACEMENT Potassium Chloride (K-Dur) 40 meq PO ASDIR PRN PRN Reason: FOR SERUM K+ 2.5 - 3.5 Potassium Chloride (Klor-Con) 40 meq PER TUBE ASDIR PRN PRN Reason: FOR SERUM K+ 2.5-3.5 Sodium Chloride (Flush - Normal Saline) 10 ml IVF Q12HR [facility] Last Admin: 09/08/19 09:42 Dose: 10 ml Sodium Chloride (Flush - Normal Saline) 10 ml IVF PRN PRN PRN Reason: Saline Flush Vital Signs & Weight: Vital Signs Temp Pulse Ox 09/08/19 16:00 98.5 F 09/08/19 12:00 98.4 F 09/08/19 08:00 98.4 F 100 Weight 147 lb 11.355 oz - Physical Exam General: alert & oriented x3, no apparent distress HEENT: mucus membranes moist, normocephaly Neck: supple neck, midline trachea Cardiac: regular rate and rhythm, no murmur Lungs: clear to auscultation, no wheeze, rales, rhonchi Neuro: grossly intact, coordination normal Abdomen: active bowel sounds, soft, non-tender Extremities: no cyanosis, no clubbing, no edema Skin: clear Musculoskeletal: no pain - Labs Result Diagrams: 09/07/19 19:23 09/08/19 03:30 Troponin/CKMB Troponin I Less than 0.010 ng/mL (< 0.028) 09/07/19 08:55 - Telemetry Sinus rhythms and dysrhythmias: sinus rhythm - Assessment/Plan Assessment/Plan: 1. DKA, improved. 2. Afib RVR, back in sinus. 3. Type 1 DM 4. CHADS VASc score of 2 PLAN: - Eliquis 5mg BID for stroke prophylaxis. - Will start low does Coreg for both BP and AV alicia blocking agents. - Echo pending. - Critical Care Time Critical care time (mins): 30
--- NOTE | 2019-09-08 18:51 | PDOC.HOSPP ---
- Subjective Encounter Date: 09/08/19 Encounter Time: 10:30 Subjective: pt up in bed no complains, feels much better today. - Objective Vital Signs & Weight: Vital Signs (12 hours) Temp Pulse Ox 09/08/19 16:00 98.5 F 09/08/19 12:00 98.4 F 09/08/19 08:00 98.4 F 100 Weight Weight 147 lb 11.355 oz Most Recent Monitor Data Heart Rate from ECG 79 NIBP 156/89 NIBP BP-Mean 111 Respiration from ECG 19 SpO2 100 I&O: 09/07/19 09/08/19 09/09/19 06:59 06:59 06:59 Intake Total 5939 551 Output Total 520 730 Balance 5419 -179 Result Diagrams: 09/07/19 19:23 09/08/19 03:30 Additional Labs: Accuchecks 09/08/19 09/08/19 09/08/19 17:44 11:33 10:13 POC Glucose 92 216 H 249 H 09/08/19 09/08/19 09/08/19 08:07 06:08 04:27 POC Glucose 250 H 222 H 192 H 09/08/19 09/08/19 09/08/19 03:33 02:38 01:31 POC Glucose 149 H 115 H 103 09/08/19 09/07/19 09/07/19 00:46 23:19 22:14 POC Glucose 104 134 H 169 H 09/07/19 09/07/19 09/07/19 21:18 19:58 18:34 POC Glucose 174 H 169 H 230 H 09/07/19 10:31 POC Glucose Greater than 550 H* Hospitalist ROS - Review of Systems Cardiovascular: denies: chest pain, palpitations, orthopnea, paroxysmal noc. dyspnea, edema, light headedness, other Gastrointestinal: denies: nausea, vomiting, abdominal pain, diarrhea, constipation, melena, hematochezia, other Genitourinary: denies: dysuria, frequency, incontinence, hematuria, retention, other - Medication Medications: Active Medications Generic Name Dose Route Start Last Admin Trade Name Freq PRN Reason Stop Dose Admin Insulin Glargine 25 units/ 0.25 mls @ 0 mls/hr 09/08/19 09:00 09/08/19 09:43 Miscellaneous Medication SC 0.25 mls QAM JANICE Administration Sodium Chloride 1,000 mls @ 75 mls/hr 09/08/19 09:30 09/08/19 09:47 1/2 Normal Saline IV 1,000 mls .[id number] JANICE Administration Insulin Human Lispro 0 units 09/08/19 08:41 09/08/19 14:00 Humalog SC 6 unit .AGGRESSIVE SLIDING PRN Administration AGGRESSIVE SLIDING SCALE Protocol Sodium Chloride 10 ml 09/07/19 21:00 09/08/19 09:42 Flush - Normal Saline IVF 10 ml Q12HR JANICE Administration - Exam Neck: negative: supple, symmetric, no JVD, no thyromegaly, no lymphadenopathy, no carotid bruit, JVD Heart: negative: RRR, no murmur, no gallops, no rubs, normal peripheral pulses, irregular, diminshed peripheral pulses, murmur present, II/IV, III/IV Respiratory: negative: CTAB, no wheezes, no rales, no ronchi, normal chest expansion, no tachypnea, normal percussion, rales, rhonchi, tachypneic, wheezes Gastrointestinal: negative: soft, non-tender, non-distended, normal bowel sounds , no palpable masses, no hepatomegaly, no splenomegaly, no bruit, no guarding, no rigidity, tender to palpation, distended, diminished bowl sounds, voluntary guarding Hosp A/P (1) DKA (diabetic ketoacidoses) Code(s): E11.10 - TYPE 2 DIABETES MELLITUS WITH KETOACIDOSIS WITHOUT COMA Status: Acute (2) Acute metabolic encephalopathy Code(s): G93.41 - METABOLIC ENCEPHALOPATHY Status: Acute (3) Atrial fibrillation with RVR Code(s): I48.91 - UNSPECIFIED ATRIAL FIBRILLATION Status: Acute (4) Sepsis with acute organ dysfunction Code(s): A41.9 - SEPSIS, UNSPECIFIED ORGANISM; R65.20 - SEVERE SEPSIS WITHOUT SEPTIC SHOCK Status: Acute (5) Acute kidney failure Status: Resolved - Plan pt on eliquis, rate controlled. echo pending. will stop iv insulin and change to sq. jaleel has improved, will start diet on her. continue abx and check labs in am. Her hh has dropped will monitor.
[2019-09-08] MEDS: Piperacillin/Tazobactam 2.25 GM in Sodium Chloride 0.9% 100 ML IVPB SCH ×2 (20:29→23:34)
[2019-09-08] MEDS: Apixaban 5 MG TAB PO SCH (20:34)
[2019-09-09 05:30] LABS: #Eosinphils 0.1 thou/uL (0.0-0.7); #Lymphocytes 1.7 thou/uL (1.20-3.40); #Monocytes 0.9 thou/uL (0.11-0.59); #Neutrophils 7.9 thou/uL (1.40-6.50); %Basophils 0.4 % (0.0-1.0); %Eosinophils 0.9 % (0.0-10.0); %Lymphocytes 15.8 % (21.0-51.0); %Monocytes 8.2 % (0.0-10.0); %Neutrophils 74.7 % (42.0-75.0); Hemoglobin 9.5 g/dL (12.0-16.0); Mean Corpuscular Hemoglobin 31.7 pg (27.0-31.0); Mean Corpuscular Volume 96.1 fL (78.0-98.0); Mean Platelet Volume 7.8 fL (7.4-10.4); Platelet Count 183 thou/uL (130-400); RBC Distribution Width 12.1 % (11.5-14.5); White Blood Cell (WBC) Count 10.5 thou/uL (4.8-10.8)
[2019-09-09] MEDS: Levothyroxine Sodium 50 MCG TAB PO SCH (05:34)
[2019-09-09] MEDS: Piperacillin/Tazobactam 2.25 GM in Sodium Chloride 0.9% 100 ML IVPB SCH (05:34)
[2019-09-09 05:49] LABS: ALT (SGPT) 15 U/L (8-55); AST (SGOT) 27 U/L (5-34); Alkaline Phosphatase 61 U/L (40-110); Anion Gap 9 mmol/L (10-20); BUN (Urea Nitrogen) 16 mg/dL (9.8-20.1); Bilirubin, Total 0.3 mg/dL (0.2-1.2); Calc. Creatinine Clearance 62 mL/min (70-130); Calcium 7.9 mg/dL (7.8-10.44); Carbon Dioxide 17 mmol/L (23-31); Chloride 114 mmol/L (98-107); Estimated GFR-MDRD 49; Globulin 2.4 g/dL (2.4-3.5); Glucose 73 mg/dL (80-115); Potassium 3.4 mmol/L (3.5-5.1); Protein, Total 5.4 g/dL (6.0-8.3); Sodium 137 mmol/L (136-145)
[2019-09-09] MEDS: Piperacillin/Tazobactam 3.375 GM in Sodium Chloride 0.9% 100 ML IVPB SCH (08:05)
[2019-09-09] MEDS: Apixaban 5 MG TAB PO SCH ×2 (08:19→20:37)
[2019-09-09] MEDS: Cholecalciferol (Vitamin D3) 400 UNITS TAB PO SCH (08:19)
[2019-09-09] MEDS: Amoxicillin/Potassium Clav 875 MG TAB PO SCH ×2 (08:20→20:37)
[2019-09-09] MEDS: Saccharomyces boulardii 250 MG CAP PO SCH (08:20)
[2019-09-09] MEDS: Insulin Glargine 25 UNITS in Pre-Filled Syringe 1 EACH SC SCH (08:20)
[2019-09-09] MEDS ORDERED: INSULIN DETEMIR 25 UNIT SQ SCH (09:00)
--- NOTE | 2019-09-09 12:14 | PRG ---
DATE OF SERVICE: 09/09/2019 SUBJECTIVE: Patient was seen and examined at bedside and overnight events noted. Patient denies any shortness of breath or chest pain or palpitation. No history of nausea or vomiting or diarrhea or fever or chills or cramps. OBJECTIVE: GENERAL: This is a thin-built female, in no acute distress. VITAL SIGNS: Temperature 97.7. Heart rate 81. Respiratory rate 20. Blood pressure 163/79. HEENT: Atraumatic, normocephalic. Oral mucosa is moist NECK: Supple. CARDIOVASCULAR: S1, S2 heard. Rate and rhythm regular. RESPIRATORY: Clear to auscultation. GASTROINTESTINAL: Abdomen is soft. MUSCULOSKELETAL: No tenderness. No edema. DERMATOLOGIC: No skin rash. NEUROLOGIC: Alert and awake and oriented X3. No focal neurologic deficits. Moving all the extremities. PSYCHIATRIC: Mood and affect normal. LABORATORY DATA: Potassium 3.4, BUN is 16, and creatinine is 1.1. ASSESSMENT AND PLAN: 1. Acute kidney injury. 2. Acidosis. 3. Hypertension. 4. Hypercalcemia. 5. Hyperphosphatemia. Labs are better. Continue supportive care. Job ID: [id number]
--- NOTE | 2019-09-09 19:01 | PDOC.HOSPP ---
- Subjective Encounter Date: 09/09/19 Encounter Time: 09:00 Subjective: Pt up in bed no complains - Objective Vital Signs & Weight: Vital Signs (12 hours) Temp Pulse Resp BP Pulse Ox 09/09/19 15:40 75 161/76 H 09/09/19 15:27 97.8 F 77 16 182/84 H 97 09/09/19 11:05 97.7 F 81 17 163/79 H 97 09/09/19 07:26 97.9 F 78 16 160/75 H 96 Weight Weight 165 lb 8 oz Most Recent Monitor Data Heart Rate from ECG 79 NIBP 155/79 NIBP BP-Mean 104 Respiration from ECG 21 SpO2 100 I&O: 09/08/19 09/09/19 09/10/19 06:59 06:59 06:59 Intake Total 5939 2622 900 Output Total 520 850 Balance 5419 1772 900 Result Diagrams: 09/09/19 05:04 09/09/19 05:04 Additional Labs: Accuchecks 09/09/19 09/09/19 09/09/19 16:42 12:53 08:22 POC Glucose 74 90 67 L 09/09/19 09/09/19 09/09/19 04:16 01:04 00:05 POC Glucose 75 81 66 L 09/08/19 20:55 POC Glucose 77 Hospitalist ROS - Review of Systems Respiratory: denies: cough, dry, shortness of breath, hemoptysis, SOB with excertion, pleuritic pain, sputum, wheezing, other Cardiovascular: denies: chest pain, palpitations, orthopnea, paroxysmal noc. dyspnea, edema, light headedness, other Gastrointestinal: denies: nausea, vomiting, abdominal pain, diarrhea, constipation, melena, hematochezia, other - Medication Medications: Active Medications Generic Name Dose Route Start Last Admin Trade Name Freq PRN Reason Stop Dose Admin Amoxicillin/Clavulanate Potassium 875 mg 09/09/19 09:00 09/09/19 08:20 Augmentin PO 09/11/19 09:01 875 mg Q12HR JANICE Administration Apixaban 5 mg 09/08/19 21:00 09/09/19 08:19 Eliquis PO 5 mg BID JANICE Administration Cholecalciferol 400 units 09/09/19 09:00 09/09/19 08:19 Vitamin D PO 400 units DAILY JANICE Administration Insulin Glargine 25 units/ 0.25 mls @ 0 mls/hr 09/08/19 09:00 09/09/19 08:20 Miscellaneous Medication SC 0.25 mls QAM JANICE Administration Insulin Human Lispro 0 units 09/08/19 08:41 09/08/19 14:00 Humalog SC 6 unit .AGGRESSIVE SLIDING PRN Administration AGGRESSIVE SLIDING SCALE Protocol Levothyroxine Sodium 50 mcg 09/09/19 06:00 09/09/19 05:34 Synthroid PO 50 mcg 0600 JANICE Administration Saccharomyces Boulardii 250 mg 09/09/19 09:00 09/09/19 08:20 Florastor PO 250 mg DAILY JANICE Administration Sodium Chloride 10 ml 09/07/19 21:00 09/09/19 08:21 Flush - Normal Saline IVF 10 ml Q12HR JANICE Administration - Exam ENT: negative: normocephalic atraumatic, no oropharyngeal lesions, moist mucosa , dry oral mucosa Neck: negative: supple, symmetric, no JVD, no thyromegaly, no lymphadenopathy, no carotid bruit, JVD Heart: negative: RRR, no murmur, no gallops, no rubs, normal peripheral pulses, irregular, diminshed peripheral pulses, murmur present, II/IV, III/IV Hosp A/P (1) DKA (diabetic ketoacidoses) Code(s): E11.10 - TYPE 2 DIABETES MELLITUS WITH KETOACIDOSIS WITHOUT COMA Status: Acute (2) Acute metabolic encephalopathy Code(s): G93.41 - METABOLIC ENCEPHALOPATHY Status: Acute (3) Atrial fibrillation with RVR Code(s): I48.91 - UNSPECIFIED ATRIAL FIBRILLATION Status: Acute (4) Sepsis with acute organ dysfunction Code(s): A41.9 - SEPSIS, UNSPECIFIED ORGANISM; R65.20 - SEVERE SEPSIS WITHOUT SEPTIC SHOCK Status: Acute (5) Acute kidney failure Status: Resolved - Plan pt on eliquis, rate controlled. echo pending. will stop iv insulin and change to sq. jaleel has improved, will start diet on her. continue abx and check labs in am. Her hh has dropped will monitor. 09/09 echo pending, if stable and ok with all consultants pt may go home. will change abx to oral. all cx negative.
[2019-09-10] MEDS: Levothyroxine Sodium 50 MCG TAB PO SCH (05:06)
[2019-09-10 06:13] LABS: Anion Gap 9 mmol/L (10-20); BUN (Urea Nitrogen) 6 mg/dL (9.8-20.1); Carbon Dioxide 24 mmol/L (23-31); Chloride 107 mmol/L (98-107); Sodium 137 mmol/L (136-145)
[2019-09-10 06:14] LABS: Calc. Creatinine Clearance 91 mL/min (70-130); Calcium 8.5 mg/dL (7.8-10.44); Estimated GFR-MDRD 77; Glucose 69 mg/dL (80-115)
[2019-09-10 06:21] LABS: Potassium 2.9 mmol/L (3.5-5.1)
[2019-09-10] MEDS ORDERED: DC Electrolyte Protocol FS ONE (06:27)
[2019-09-10 07:03] LABS: Magnesium 1.7 mg/dL (1.6-2.6)
[2019-09-10] MEDS: Amoxicillin/Potassium Clav 875 MG TAB PO SCH ×2 (07:54→21:52)
[2019-09-10] MEDS: Saccharomyces boulardii 250 MG CAP PO SCH (07:54)
[2019-09-10] MEDS: Potassium Chloride 20 MEQ TAB PO SCH ×2 (07:54→11:00)
[2019-09-10] MEDS: Apixaban 5 MG TAB PO SCH ×2 (07:55→21:52)
[2019-09-10] MEDS: Cholecalciferol (Vitamin D3) 400 UNITS TAB PO SCH (07:55)
[2019-09-10 10:52] LABS: #Eosinphils 0.2 thou/uL (0.0-0.7); #Lymphocytes 1.3 thou/uL (1.20-3.40); #Monocytes 0.6 thou/uL (0.11-0.59); #Neutrophils 3.4 thou/uL (1.40-6.50); %Eosinophils 3.5 % (0.0-10.0); %Lymphocytes 23.7 % (21.0-51.0); %Monocytes 10.9 % (0.0-10.0); %Neutrophils 61.9 % (42.0-75.0); Mean Corpuscular HGB CONC 33.5 g/dL (32.0-36.0); Mean Corpuscular Hemoglobin 31.9 pg (27.0-31.0); Mean Corpuscular Volume 95.1 fL (78.0-98.0); Mean Platelet Volume 7.9 fL (7.4-10.4); Platelet Count 199 thou/uL (130-400); Red Blood Cell (RBC) Count 3.44 mill/uL (4.20-5.40); White Blood Cell (WBC) Count 5.4 thou/uL (4.8-10.8)
--- NOTE | 2019-09-10 11:21 | PRG ---
DATE OF SERVICE: 09/10/2019 SUBJECTIVE: Patient was seen and examined at bedside and overnight events noted. Patient denies any shortness of breath or chest pain or palpitation. No history of nausea or vomiting or diarrhea or fever or chills or cramps. OBJECTIVE: GENERAL: This is a thin built female, in no apparent distress. VITAL SIGNS: Temperature 97.8, pulse 71, respiratory rate 16. Blood pressure 165/70. HEENT: Atraumatic, normocephalic. Oral mucosa is moist NECK: Supple. CARDIOVASCULAR: S1, S2 heard. Rate and rhythm regular. RESPIRATORY: Clear to auscultation. GASTROINTESTINAL: Abdomen is soft. MUSCULOSKELETAL: No tenderness. No edema. DERMATOLOGIC: No skin rash. NEUROLOGIC: Alert and awake and oriented X3. No focal neurologic deficits. Moving all the extremities. PSYCHIATRIC: Mood and affect normal. LABORATORY DATA: Potassium 2.9, BUN is 6, and creatinine 0.7. ASSESSMENT AND PLAN: 1. Acute kidney injury, much better. 2. Diabetic ketoacidosis, better. 3. Hypertension. 4. Hypokalemia. 5. Hypocalcemia. 6. Labs are better. Replace potassium. Job ID: [id number]
[2019-09-10] MEDS ORDERED: Potassium Chloride 20 MEQ TAB PO SCH (13:00)
--- NOTE | 2019-09-10 13:43 | PDOC.HOSPP ---
- Subjective Encounter Date: 09/10/19 Encounter Time: 09:00 Subjective: Pt seen for followup re: hypokalemia. Feels better. No complaints. - Objective Vital Signs & Weight: Vital Signs (12 hours) Temp Pulse Resp BP Pulse Ox 09/10/19 11:01 97.8 F 75 16 170/83 H 98 09/10/19 07:50 97.8 F 71 16 165/70 H 97 09/10/19 04:00 98.5 F 72 16 150/71 H 98 Weight Weight 149 lb 8 oz Most Recent Monitor Data Heart Rate from ECG 79 NIBP 155/79 NIBP BP-Mean 104 Respiration from ECG 21 SpO2 100 I&O: 09/09/19 09/10/19 09/11/19 06:59 06:59 06:59 Intake Total 2622 1620 Output Total 850 Balance 1772 1620 Result Diagrams: 09/10/19 10:20 09/10/19 05:06 Additional Labs: Accuchecks 09/10/19 09/10/19 09/10/19 12:37 08:21 04:56 POC Glucose 162 H 137 H 71 09/09/19 09/09/19 09/09/19 23:46 20:12 16:42 POC Glucose 91 94 74 Labs and MARs reviewed by me EKG Reviewed by me: Yes (Tele: NSR) Hospitalist ROS - Review of Systems Cardiovascular: denies: chest pain, palpitations, orthopnea, paroxysmal noc. dyspnea, edema, light headedness Gastrointestinal: denies: nausea, vomiting, abdominal pain, diarrhea, constipation, melena, hematochezia - Medication Medications: Active Medications Generic Name Dose Route Start Last Admin Trade Name Freq PRN Reason Stop Dose Admin Amoxicillin/Clavulanate Potassium 875 mg 09/09/19 09:00 09/10/19 07:54 Augmentin PO 09/11/19 09:01 875 mg Q12HR JANICE Administration Apixaban 5 mg 09/08/19 21:00 09/10/19 07:55 Eliquis PO 5 mg BID JANICE Administration Cholecalciferol 400 units 09/09/19 09:00 09/10/19 07:55 Vitamin D PO 400 units DAILY JANICE Administration Insulin Human Lispro 0 units 09/08/19 08:41 09/08/19 14:00 Humalog SC 6 unit .AGGRESSIVE SLIDING PRN Administration AGGRESSIVE SLIDING SCALE Protocol Levothyroxine Sodium 50 mcg 09/09/19 06:00 09/10/19 05:06 Synthroid PO 50 mcg 0600 JANICE Administration Potassium Chloride 40 meq 09/10/19 13:00 09/10/19 13:13 K-Dur PO 09/10/19 15:00 40 meq NOW JANICE Administration Saccharomyces Boulardii 250 mg 09/09/19 09:00 09/10/19 07:54 Florastor PO 250 mg DAILY JANICE Administration Sodium Chloride 10 ml 09/07/19 21:00 09/10/19 07:55 Flush - Normal Saline IVF 10 ml Q12HR JANICE Administration - Exam General Appearance: NAD Eye: anicteric sclera ENT: moist mucosa Neck: supple, no JVD Heart: RRR, no rubs Respiratory: CTAB Gastrointestinal: soft, non-tender Extremities: no cyanosis Neurological: no weakness Musculoskeletal: normal strength Psychiatric: normal affect, normal behavior Hosp A/P (1) Hypokalemia Code(s): E87.6 - HYPOKALEMIA Status: Acute (2) Diabetes type 2, controlled Code(s): E11.9 - TYPE 2 DIABETES MELLITUS WITHOUT COMPLICATIONS Status: Chronic (3) Dyslipidemia Code(s): E78.5 - HYPERLIPIDEMIA, UNSPECIFIED Status: Chronic (4) Hypertension Code(s): I10 - ESSENTIAL (PRIMARY) HYPERTENSION Status: Chronic Qualifiers: (5) Hypothyroidism Code(s): E03.9 - HYPOTHYROIDISM, UNSPECIFIED Status: Chronic Qualifiers: (6) Atrial fibrillation with RVR Code(s): I48.91 - UNSPECIFIED ATRIAL FIBRILLATION Status: Resolved (7) DKA (diabetic ketoacidoses) Code(s): E11.10 - TYPE 2 DIABETES MELLITUS WITH KETOACIDOSIS WITHOUT COMA Status: Resolved - Plan out of bed/ambulate Replace potassium and recheck. Monitor vital signs, titrate antihypertensives as needed. Continue accuchecks and insulin sliding scale. CRISTA resolved.
[2019-09-10 16:24] LABS: Potassium 4.3 mmol/L (3.5-5.1)
[2019-09-10] MEDS: HumaLOG 300 UNITS/3 ML VIAL SC PRN (18:09)
[2019-09-11] MEDS: Levothyroxine Sodium 50 MCG TAB PO SCH (05:43)
[2019-09-11 07:50] LABS: Anion Gap 11 mmol/L (10-20); BUN (Urea Nitrogen) 8 mg/dL (9.8-20.1); Calc. Creatinine Clearance 67 mL/min (70-130); Calcium 8.9 mg/dL (7.8-10.44); Carbon Dioxide 22 mmol/L (23-31); Chloride 103 mmol/L (98-107); Estimated GFR-MDRD 63; Glucose 209 mg/dL (80-115); Potassium 4.4 mmol/L (3.5-5.1); Sodium 132 mmol/L (136-145)
[2019-09-11] MEDS ORDERED: Insulin Glargine 5 UNITS in Pre-Filled Syringe 1 EACH SC SCH (09:00)
[2019-09-11] MEDS: HumaLOG 300 UNITS/3 ML VIAL SC PRN ×2 (09:40→12:40)
[2019-09-11] MEDS: Saccharomyces boulardii 250 MG CAP PO SCH (09:41)
[2019-09-11] MEDS: Amoxicillin/Potassium Clav 875 MG TAB PO SCH (09:41)
[2019-09-11] MEDS: Cholecalciferol (Vitamin D3) 400 UNITS TAB PO SCH (09:41)
[2019-09-11] MEDS: Apixaban 5 MG TAB PO SCH (09:41)
[2019-09-11 12:39] VITALS: BP 156/78; TEMP 98.2
--- NOTE | 2019-09-11 16:13 | DIS ---
DATE OF ADMISSION: 09/07/2019 DATE OF DISCHARGE: 09/11/2019 PRIMARY CARE PROVIDER: Dr. Tiffanie Chiu. DISCHARGE DIAGNOSES: 1. Diabetic ketoacidosis. 2. Sepsis. 3. Acute metabolic encephalopathy. 4. Acute kidney injury. 5. Atrial fibrillation with rapid ventricular response. 6. Hypokalemia. 7. Hyponatremia. CONDITION OF PATIENT ON THE DAY OF DISCHARGE: Stable. I assessed Ms. Yanez on the day of discharge. She denies any chest pain or shortness of breath. Vital signs are stable. S1 and S2 are heard, regular. Lungs are clear to auscultation bilaterally. DISCHARGE MEDICATIONS: 1. Vitamin D 400 units daily. 2. Synthroid 100 mcg daily. 3. Apixaban 5 mg 2 times a day. 4. Levemir dose decreased to 10 units daily. 5. Florastor 250 mg daily. 6. Acetaminophen p.r.n. CONSULTATIONS DURING THIS HOSPITALIZATION: Cardiology, Dr. Peace; Pulmonary Critical Care Medicine, Dr. Mccallum; and Nephrology, Dr. Russo. HOSPITAL COURSE: Ms. Yanez is a pleasant 63-year-old lady who was admitted to [facility] for sepsis and diabetic ketoacidosis on September 07, 2019. Please refer to Dr. Judd's history and physical note dated September 07, 2019, for further details. She was treated in the Critical Care Unit per DKA protocol and with antibiotics. She required central line placement. She was also seen by Nephrology Service for acute kidney injury. She improved with intravenous fluids. She was also found to be in atrial fibrillation with rapid ventricular response. She was seen by Cardiology service. 2D echocardiogram showed left ventricular ejection fraction of 60% to 65%, grade 2/3 diastolic dysfunction, mild concentric left ventricular hypertrophy, mild mitral regurgitation, mild tricuspid regurgitation, and mild pulmonic regurgitation. She continued to improve clinically. Her blood sugars started to trending down and her long-acting insulin dose was decreased. She has been advised to check her blood pressure and heart rate 3 times a day and show the readings to her primary care provider. She has also been advised to follow up with primary care provider for final blood culture results. Antibiotics were discontinued prior to discharge. Final urine culture did not show any growth. Preliminary blood cultures did not show any growth at 48 hours. On the day of discharge, she has sodium 132, potassium 4.4, creatinine 0.9. White count 5400, hemoglobin 11, and platelet count 199,000. Many thanks for allowing me to participate in your patient's care. Please feel free to contact me with any questions or concerns. DISCHARGE DESTINATION: Home. TIME SPENT: Total amount of time spent coordinating this discharge: 32 minutes. Job ID: [id number]
--- NOTE | 2019-09-12 22:54 | EKG ---
Test Reason : Blood Pressure : / mmHG Vent. Rate : 096 BPM Atrial Rate : 115 BPM P-R Int : 000 ms QRS Dur : 102 ms QT Int : 358 ms P-R-T Axes : 000 053 125 degrees QTc Int : 452 ms Atrial fibrillation Nonspecific ST and T wave abnormality , probably digitalis effect Abnormal ECG When compared with ECG of 22-JUN-2018 09:46, Atrial fibrillation has replaced Sinus rhythm Confirmed by SIN MALAGON M.D. ([id number]) on 09/12/2019 10:54:12 PM Referred By: ERNESTO Confirmed By:SIN MALAGON M.D.
== END 2019-09-11 14:59 | disposition home or self-care (01) | DRG 871 ==
LOC: ERS 08:32 → IMCU/EMU 10:45 → CCU 13:37 → 2NO 09-08 22:16
PROVIDERS: ADMIT Internal Medicine; ATTEND Internal Medicine
PROC: 02HV33Z Insertion of Infusion Device into Superior Vena Cava, Percutaneous Approach (ICD-10-PCS; principal; 2019-09-07)
PROC: 3E02340 Introduction of Influenza Vaccine into Muscle, Percutaneous Approach (ICD-10-PCS; 2019-09-08)
PROC: 3E0234Z Introduction of Serum, Toxoid and Vaccine into Muscle, Percutaneous Approach (ICD-10-PCS; 2019-09-08)
DX: A41.9 Sepsis, unspecified organism (principal); E10.10 Type 1 diabetes mellitus with ketoacidosis without coma; G93.41 Metabolic encephalopathy; N17.9 Acute kidney failure, unspecified; E87.1 Hypo-osmolality and hyponatremia; Z23 Encounter for immunization; E87.6 Hypokalemia; I48.91 Unspecified atrial fibrillation; I12.9 Hypertensive chronic kidney disease with stage 1 through stage 4 chronic kidney disease, or unspecified chronic kidney disease; E03.9 Hypothyroidism, unspecified; E10.43 Type 1 diabetes mellitus with diabetic autonomic (poly)neuropathy; E10.22 Type 1 diabetes mellitus with diabetic chronic kidney disease; K31.84 Gastroparesis; E78.5 Hyperlipidemia, unspecified; D63.1 Anemia in chronic kidney disease; E83.51 Hypocalcemia; E83.39 Other disorders of phosphorus metabolism; I08.3 Combined rheumatic disorders of mitral, aortic and tricuspid valves; N18.9 Chronic kidney disease, unspecified; Z88.5 Allergy status to narcotic agent; Z79.4 Long term (current) use of insulin; Z79.899 Other long term (current) drug therapy
CPT/HCPCS: 36415; 36416; 70450; 71045; 80048; 80053; 81003; 82010; 82330; 82607; 82803; 82805; 83036; 83690; 83735; 84100; 84443; 84484; 85014; 85025; 85730; 87040; 87086; 90471; 90670; 90686; 93005; 93010; 93306; 96361; 96365; 96366; G0008; G0009; J1160; J1650; J1815; J2543; J3480; J3490

== ENCOUNTER 2019-09-18 09:49 | Inpatient (IN) | payer SELFPAY ==
[2019-09-18 10:27] LABS: #Basophils 0.1 thou/uL (0.0-0.2); #Eosinphils 0.2 thou/uL (0.0-0.7); #Lymphocytes 3.1 thou/uL (1.20-3.40); #Monocytes 0.6 thou/uL (0.11-0.59); #Neutrophils 3.2 thou/uL (1.40-6.50); %Basophils 1.2 % (0.0-1.0); %Eosinophils 2.7 % (0.0-10.0); %Lymphocytes 43.3 % (21.0-51.0); %Monocytes 8.5 % (0.0-10.0); %Neutrophils 44.4 % (42.0-75.0); Hemoglobin 11.2 g/dL (12.0-16.0); Mean Corpuscular HGB CONC 30.6 g/dL (32.0-36.0); Mean Corpuscular Hemoglobin 30.7 pg (27.0-31.0); Mean Platelet Volume 8.4 fL (7.4-10.4); Platelet Count 376 thou/uL (130-400); RBC Distribution Width 13.2 % (11.5-14.5); Red Blood Cell (RBC) Count 3.67 mill/uL (4.20-5.40); White Blood Cell (WBC) Count 7.3 thou/uL (4.8-10.8)
[2019-09-18] MEDS ORDERED: Lorazepam 1 MG TAB ONE (10:33)
[2019-09-18 11:02] LABS: ALT (SGPT) 12 U/L (8-55); AST (SGOT) 16 U/L (5-34); Albumin 4.1 g/dL (3.4-4.8); Alkaline Phosphatase 99 U/L (40-110); BUN (Urea Nitrogen) 20 mg/dL (9.8-20.1); Bilirubin, Total 0.4 mg/dL (0.2-1.2); Calc. Creatinine Clearance 0 mL/min (70-130); Calcium 9.4 mg/dL (7.8-10.44); Chloride 101 mmol/L (98-107); Estimated GFR-MDRD 24; Globulin 3.1 g/dL (2.4-3.5); Potassium 4.7 mmol/L (3.5-5.1); Protein, Total 7.2 g/dL (6.0-8.3); Sodium 132 mmol/L (136-145)
--- NOTE | 2019-09-18 11:05 | RAD ---
PA AND LATERAL VIEWS CHEST: Date: 09/18/19 HISTORY: Shortness of breath. FINDINGS: Comparison made with exam of 09/07/19. The heart size is normal. The lungs are expanded without lobar consolidation, pneumothoraces, or pleu ral effusions. There has been interval removal of the right subclavian central line since the previou s study. There is compression of lower thoracic vertebral body, which is stable since 06/25/18. IMPRESSION: No radiographic evidence of acute cardiopulmonary process. POS: LYNNETTE
[2019-09-18 11:09] LABS: Carbon Dioxide Less than 8 mmol/L (23-31); Glucose 607 mg/dL (80-115)
[2019-09-18] MEDS ORDERED: Insulin Regular 300 UNITS/3 ML VIAL IVP SCH (11:30)
[2019-09-18] MEDS ORDERED: Insulin Regular 100 units/100 ml in NS IVPB SCH (11:45)
[2019-09-18 12:18] LABS: Magnesium 2.2 mg/dL (1.6-2.6); Phosphorus 2.8 mg/dL (2.3-4.7)
[2019-09-18 12:18] LABS: Base Excess-Venous -20.9 mmol/L (-2.0 to 3.0); Bicarbonate (HCO3v) 6.3 mmol/L (22.0-28.0); CO2 Tension (PvCO2) 18.8 mmHg (40.0-50.0); Calcium, Ionized 1.21 mmol/L (See Comments:); Chloride 110 mmol/L (98-107); Hemoglobin - Calc 12.4 g/dL (12.0-16.0); Potassium 4.4 mmol/L (3.5-5.1); Sodium 132 mmol/L (138-145); T. Carbon Dioxide 6.9 mmol/L (22.0-28.0); vO2 Saturation-calc 61.3 % (60.0-85.0)
--- NOTE | 2019-09-18 12:46 | HP ---
CHIEF COMPLAINT: Dehydration and elevated blood sugars. HISTORY OF PRESENT ILLNESS: This is a 63-year-old female, recently admitted for DKA, was discharged home. At home, the patient claims that she has been taking medication, but not eating well because she was not feeling well. As a result, the sugar started increasing and presented to ER with above symptoms and found to be in DKA with elevated blood sugars of 607 and carbon dioxide level of 8. ER physician recommended to hospitalize the patient in the ICU and insulin was started. PAST MEDICAL HISTORY: 1. Diabetes mellitus with DKA in the past, insulin dependent. 2. Dyslipidemia the patient takes Eliquis for blood thinners or unknown reason. SOCIAL HISTORY: Does not smoke or drink alcohol. FAMILY HISTORY: Noncontributory. REVIEW OF SYSTEMS: CONSTITUTIONAL: Generalized weakness present. HEENT: Negative. PULMONARY/RESPIRATORY: Negative. GASTROINTESTINAL: Negative. MUSCULOSKELETAL: Negative. NEUROLOGIC: As above. ENDOCRINE: As above. All other systems reviewed and negative. PHYSICAL EXAMINATION: GENERAL: The patient is alert and oriented x3, not in acute distress. VITAL SIGNS: Afebrile. Stable. HEENT: IVETH. Atraumatic and normocephalic. Dry mucous membranes. NECK: Supple. No JVD. LUNGS: Clear to auscultation bilaterally. CVS: S1 and S2 heard. Regular rate and rhythm. ABDOMEN: Soft. Bowel sounds present. Nontender, nondistended. EXTREMITIES: No cyanosis, calf tenderness, or edema. BANKING [place]: Nonfocal. LABORATORY DATA: Labs performed here show sodium 132, potassium 4.7, chloride 101, carbon dioxide less than 8, glucose is 607, AST 16, and ALT 12. TSH was 58. The patient has history of hypothyroidism. Blood count shows WBC 7.3, hemoglobin 11.2, and hematocrit 36.8. IMPRESSION: 1. Acute diabetic ketoacidosis. 2. History of noncompliance. 3. Hypothyroidism, elevated TSH, not taking Synthroid at home on a regular basis; however, during acute illnesses, unable to determine based on this TSH alone. 4. On anticoagulation of unclear etiology. PLAN: 1. The patient will be admitted to ICU. 2. IV hydration. 3. IV insulin will be started. 4. employment specialist/program manager will be consulted. 5. Continue to monitor electrolytes and acid levels. 6. Restart hypothyroid medications and Eliquis. 7. DVT prophylaxis. 8. Further recommendation depending on the clinical course. Job ID: [id number]
[2019-09-18 12:59] LABS: Bilirubin Negative (Negative); Blood, Urine Negative (Negative); Clarity Clear (Clear); Glucose, Urine (Dipstick) Greater than 1000 mg/dL (Negative); Leukocyte Negative Leu/uL (Negative); Nitrite Negative (Negative); Protein, Urine (Dipstick) 20 mg/dL (Neg-Trace); Urobilinogen Normal mg/dL (Less than 2)
[2019-09-18] MEDS ORDERED: NS 0.9% w/ 20 MEQ KCL 1,000 ML/1,000 ML BAG IV PRN ×2 (13:25)
[2019-09-18] MEDS ORDERED: Dextrose 5% in Water 1,000 ML IV PRN (13:25)
[2019-09-18] MEDS ORDERED: Sodium Chloride 0.9% 1,000 ML IV PRN ×4 (13:25)
[2019-09-18] MEDS ORDERED: Dextrose 50% Abboject 50 ML SYRINGE SLOW IVP PRN (13:25)
[2019-09-18] MEDS ORDERED: Dextrose 5 %-0.45 % NaCl 1,000 ML IV PRN (13:25)
[2019-09-18] MEDS ORDERED: Potassium Phosphate 15 MMOL in Sodium Chloride 0.9% 250 ML 250 ML IV PRN (13:26)
[2019-09-18] MEDS ORDERED: Potassium Chloride 40 MEQ in Premix Bag 1 BAG IVPB PRN (13:26)
[2019-09-18] MEDS ORDERED: Magnesium Oxide 400 MG TAB PO PRN ×2 (13:26)
[2019-09-18] MEDS ORDERED: Potassium Chloride 40 MEQ in Sodium Chloride 0.9% 250 ML 250 ML IVPB PRN (13:26)
[2019-09-18] MEDS ORDERED: Potassium Phosphate 12 MMOL in Sodium Chloride 0.9% 250 ML 250 ML IV PRN (13:26)
[2019-09-18] MEDS ORDERED: Potassium Chloride 20 MEQ TAB PO PRN (13:26)
[2019-09-18] MEDS ORDERED: Magnesium 2 GM/50 ML 2 GM in Premix Bag 1 BAG IVPB PRN (13:26)
[2019-09-18] MEDS ORDERED: PHOS-NAK 1 PKT PACK PO PRN ×2 (13:26)
[2019-09-18] MEDS ORDERED: Potassium Phosphate 9 MMOL in Sodium Chloride 0.9% 100 ML IVPB PRN (13:26)
[2019-09-18] MEDS ORDERED: CCU ELECTROLYTE REPLACEMENT PROTOCOL FS PRN (13:26)
[2019-09-18] MEDS ORDERED: ADD ELECTROLYTE REPLACEMENT SET TO PROFILE FS SCH (13:30)
[2019-09-18] MEDS ORDERED: HUMULIN R 100 UNITS in Sodium Chloride 0.9% 100 ML IVPB SCH (13:30)
[2019-09-18 14:57] VITALS: BMI 22.8
[2019-09-18 18:41] LABS: Anion Gap 15 mmol/L (10-20); BUN (Urea Nitrogen) 16 mg/dL (9.8-20.1); Calc. Creatinine Clearance 42 mL/min (70-130); Calcium 8.3 mg/dL (7.8-10.44); Carbon Dioxide 12 mmol/L (23-31); Chloride 115 mmol/L (98-107); Estimated GFR-MDRD 37; Glucose 112 mg/dL (80-115); Potassium 3.7 mmol/L (3.5-5.1); Sodium 138 mmol/L (136-145)
[2019-09-18] MEDS: D5 1/2 NS w/20 mEq KCL 1,000 ML IV PRN (23:05)
[2019-09-19] MEDS: D5 1/2 NS w/20 mEq KCL 1,000 ML IV PRN (03:13)
[2019-09-19 05:38] LABS: Anion Gap 9 mmol/L (10-20); BUN (Urea Nitrogen) 12 mg/dL (9.8-20.1); Calc. Creatinine Clearance 52 mL/min (70-130); Calcium 7.6 mg/dL (7.8-10.44); Carbon Dioxide 14 mmol/L (23-31); Chloride 114 mmol/L (98-107); Estimated GFR-MDRD 47; Glucose 187 mg/dL (80-115); Potassium 3.6 mmol/L (3.5-5.1); Sodium 133 mmol/L (136-145)
[2019-09-19] MEDS ORDERED: Enoxaparin Sodium 40 MG/0.4 ML SYRINGE SC SCH (09:00)
[2019-09-19 11:13] LABS: #Eosinphils 0.1 thou/uL (0.0-0.7); #Lymphocytes 1.9 thou/uL (1.20-3.40); #Monocytes 0.4 thou/uL (0.11-0.59); #Neutrophils 2.1 thou/uL (1.40-6.50); %Basophils 0.7 % (0.0-1.0); %Eosinophils 3.2 % (0.0-10.0); %Lymphocytes 40.9 % (21.0-51.0); %Monocytes 8.9 % (0.0-10.0); %Neutrophils 46.3 % (42.0-75.0); Hemoglobin 10.3 g/dL (12.0-16.0); Mean Corpuscular HGB CONC 32.5 g/dL (32.0-36.0); Mean Corpuscular Hemoglobin 31.6 pg (27.0-31.0); Mean Corpuscular Volume 97.3 fL (78.0-98.0); Mean Platelet Volume 7.5 fL (7.4-10.4); Platelet Count 277 thou/uL (130-400); Red Blood Cell (RBC) Count 3.25 mill/uL (4.20-5.40); White Blood Cell (WBC) Count 4.6 thou/uL (4.8-10.8)
[2019-09-19 11:57] LABS: Anion Gap 11 mmol/L (10-20); BUN (Urea Nitrogen) 10 mg/dL (9.8-20.1); Calc. Creatinine Clearance 49 mL/min (70-130); Calcium 8.3 mg/dL (7.8-10.44); Carbon Dioxide 13 mmol/L (23-31); Chloride 111 mmol/L (98-107); Estimated GFR-MDRD 43; Glucose 230 mg/dL (80-115); Magnesium 1.9 mg/dL (1.6-2.6); Phosphorus 1.3 mg/dL (2.3-4.7); Potassium 3.8 mmol/L (3.5-5.1); Sodium 131 mmol/L (136-145)
[2019-09-19] MEDS ORDERED: DC Electrolyte Protocol FS ONE (13:48)
[2019-09-19] MEDS ORDERED: Dextrose 5% in Water 1,000 ML IV PRN (13:54)
[2019-09-19] MEDS ORDERED: Dextrose 50% Abboject 50 ML SYRINGE SLOW IVP PRN (13:54)
[2019-09-19] MEDS ORDERED: Insulin Regular 300 UNITS/3 ML VIAL SC PRN ×2 (13:54)
--- NOTE | 2019-09-19 13:58 | PDOC.HOSPP ---
- Subjective Encounter Date: 09/19/19 Encounter Time: 13:56 Subjective: Patient seen and examined for DKA. SOB resolved. No CP or SOB. No new complaints. No overnight events - Objective Vital Signs & Weight: Vital Signs (12 hours) Temp Pulse Ox 09/19/19 11:13 99.4 F 09/19/19 08:00 100 09/19/19 07:44 99.0 F 09/19/19 04:00 98.7 F Weight Weight 145 lb 8 oz Most Recent Monitor Data Heart Rate from ECG 71 NIBP 135/67 NIBP BP-Mean 89 Respiration from ECG 16 SpO2 100 I&O: 09/18/19 09/19/19 09/20/19 06:59 06:59 06:59 Intake Total 4905 Output Total 980 500 Balance 3925 -500 Result Diagrams: 09/20/19 04:31 09/20/19 04:31 Additional Labs: Accuchecks 09/19/19 09/19/19 09/19/19 12:09 11:04 09:12 POC Glucose 220 H 205 H 165 H 09/19/19 09/19/19 09/19/19 08:13 07:14 06:20 POC Glucose 144 H 160 H 157 H 09/19/19 09/19/19 09/19/19 05:24 04:13 03:16 POC Glucose 163 H 178 H 170 H 09/19/19 09/19/19 09/19/19 02:07 01:31 00:20 POC Glucose 183 H 179 H 149 H 09/18/19 09/18/19 09/18/19 23:11 22:05 21:18 POC Glucose 123 H 140 H 153 H 09/18/19 09/18/19 09/18/19 20:27 19:15 18:25 POC Glucose 141 H 97 87 09/18/19 09/18/19 09/18/19 17:29 16:12 14:20 POC Glucose 98 178 H 298 H 09/18/19 13:20 POC Glucose 439 H Laboratory Tests 09/18/19 09/18/19 09/19/19 10:12 11:51 10:58 Serum Osmolality 330 H* Phosphorus 1.3 L TSH 3rd Generation 58.5205 H Radiology Reviewed by me: Yes (CXR - neg) EKG Reviewed by me: Yes (Tele SR) Hospitalist ROS - Review of Systems Cardiovascular: denies: chest pain, palpitations, orthopnea, paroxysmal noc. dyspnea, edema, light headedness, other Gastrointestinal: denies: nausea, vomiting, abdominal pain, diarrhea, constipation, melena, hematochezia, other Genitourinary: denies: dysuria, frequency, incontinence, hematuria, retention, other - Medication Medications: Active Medications Generic Name Dose Route Start Last Admin Trade Name Freq PRN Reason Stop Dose Admin Potassium Chloride/Dextrose/Sod Cl 1,000 mls @ 250 mls/hr 09/18/19 13:25 03:13 D5 / Ns W/20 Meq Kcl IV 1,000 mls INF PRN Administration STEP 4: DKA PROTOCOL Protocol Miscellaneous Medication 1 pkt 09/18/19 13:26 09/19/19 13:43 Phos-Nak PO 1 pkt TIDPRN PRN Administration FOR PHOS LEVEL 1.0 - 1.8 - Exam General Appearance: NAD Neck: supple, no JVD Heart: RRR, no murmur, no gallops, no rubs Respiratory: CTAB, no wheezes, no rales, no ronchi Gastrointestinal: soft, non-tender, non-distended, normal bowel sounds Extremities: no cyanosis, no clubbing, no edema Neurological: no focal deficits Psychiatric: normal affect, A&O x 3 Hosp A/P - Plan old records reviewed/req, plan discussed w/ family, out of bed/ambulate DKA - etio?? Hypophosphatemia/Hyponatremia Hypothyroidism with abn TSH CRISTA on CKD 2 Anxiety HTN Chronic diastolic HF Par Afib DM2 PLAN: Start Lantus 10 units BID Moderate SS Transfer to medical Start 11/24 NS with 20 KCL @100ml/hr DC DKA protocol Replace electrolytes Resume Eliquis AM labs
[2019-09-19] MEDS ORDERED: Insulin Glargine 10 UNITS in Pre-Filled Syringe 1 EACH SC SCH ×2 (15:00→21:00)
[2019-09-19] MEDS: 1/2 NS w/KCL 20 mEq 1,000 ML IV SCH (16:06)
[2019-09-19] MEDS ORDERED: K-Phos Neutral 250 MG TAB PO SCH (17:00)
[2019-09-19] MEDS: Apixaban 5 MG TAB PO SCH (21:45)
[2019-09-20] MEDS ORDERED: 1/2 NS w/KCL 20 mEq 1,000 ML IV SCH (01:30)
[2019-09-20] MEDS: 1/2 NS w/KCL 20 mEq 1,000 ML IV SCH (03:28)
[2019-09-20 04:54] LABS: #Basophils 0.1 thou/uL (0.0-0.2); #Eosinphils 0.2 thou/uL (0.0-0.7); #Lymphocytes 2.7 thou/uL (1.20-3.40); #Monocytes 0.5 thou/uL (0.11-0.59); #Neutrophils 1.9 thou/uL (1.40-6.50); %Basophils 1.2 % (0.0-1.0); %Eosinophils 4.6 % (0.0-10.0); %Lymphocytes 49.5 % (21.0-51.0); %Neutrophils 35.8 % (42.0-75.0); Hemoglobin 10.4 g/dL (12.0-16.0); Mean Corpuscular HGB CONC 31.5 g/dL (32.0-36.0); Mean Corpuscular Hemoglobin 30.6 pg (27.0-31.0); Mean Corpuscular Volume 97.4 fL (78.0-98.0); Mean Platelet Volume 7.8 fL (7.4-10.4); Platelet Count 265 thou/uL (130-400); RBC Distribution Width 13.1 % (11.5-14.5); Red Blood Cell (RBC) Count 3.41 mill/uL (4.20-5.40); White Blood Cell (WBC) Count 5.4 thou/uL (4.8-10.8)
[2019-09-20 04:58] LABS: Anion Gap 11 mmol/L (10-20); BUN (Urea Nitrogen) 6 mg/dL (9.8-20.1); Calc. Creatinine Clearance 60 mL/min (70-130); Calcium 8.5 mg/dL (7.8-10.44); Carbon Dioxide 14 mmol/L (23-31); Chloride 116 mmol/L (98-107); Estimated GFR-MDRD 56; Glucose 49 mg/dL (80-115); Magnesium 1.9 mg/dL (1.6-2.6); Phosphorus 1.8 mg/dL (2.3-4.7); Potassium 3.8 mmol/L (3.5-5.1); Sodium 137 mmol/L (136-145)
[2019-09-20] MEDS ORDERED: PHOS-NAK 1 PKT PACK PO SCH (06:00)
[2019-09-20] MEDS ORDERED: K-Phos Neutral 250 MG TAB PO SCH ×2 (06:00→08:00)
[2019-09-20] MEDS ORDERED: Levothyroxine Sodium 100 MCG TAB PO SCH (06:00)
[2019-09-20] MEDS ORDERED: Saccharomyces boulardii 250 MG CAP PO SCH (09:00)
[2019-09-20] MEDS ORDERED: Cholecalciferol (Vitamin D3) 400 UNITS TAB PO SCH (09:00)
[2019-09-20] MEDS: Apixaban 5 MG TAB PO SCH (09:38)
[2019-09-20] MEDS: K-Phos Neutral 250 MG TAB PO SCH ×2 (12:34→17:20)
[2019-09-20 16:38] VITALS: BP 132/64; TEMP 98.7
--- NOTE | 2019-09-20 19:43 | DIS ---
DATE OF ADMISSION: 09/18/2019 DATE OF DISCHARGE: 09/20/2019 DISCHARGE DISPOSITION: Home. FOLLOWUP: Follow up with primary care physician, Dr. Tiffanie Chiu, in 1 week. ALLERGIES: MORPHINE. THE PATIENT WAS SEEN AND EXAMINED ON THE DAY OF DISCHARGE. DENIES ANY NEW COMPLAINTS. NO CHEST PAIN, SHORTNESS OF BREATH, OR PALPITATIONS REPORTED. BRIEF HOSPITAL COURSE: The patient is a 63-year-old female with diabetes mellitus type 2, presented to the hospital with elevated blood sugar along with shortness of breath and nausea. Workup was consistent with diabetic ketoacidosis. Initial blood glucose was 607 with bicarbonate of less than 8. Sodium was 132. TSH was 58.52. Her infectious workup was negative. Her ketones on admission were 13.18, that improved to 0.33. D-dimer was negative. Troponin was negative. Urinalysis was negative. Blood cultures and urine culture remained negative. She was monitored in the intermediate care unit on insulin protocol. Electrolytes were gradually replaced. She was then transitioned to subcu insulin. She takes 10 units of Levemir daily. An attempt was made to increase the long-acting insulin to 10 units b.i.d. However, the patient started developing hypoglycemia. For this reason, the patient will be discharged on the same dose of insulin. No changes in her medications were made. TSH was elevated with a free T4 of 0.63. She will benefit from a repeat TSH as outpatient. She was extensively counseled on diabetes mellitus type 2. She was advised to seek medical attention if she develops any new symptoms. FINAL DIAGNOSES: 1. Diabetic ketoacidosis of unclear etiology. 2. Hypophosphatemia, replaced. 3. Hyponatremia. 4. Abnormal TSH. A repeat TSH in 4 weeks is recommended. The patient will continue the same dose of levothyroxine. 5. Acute kidney injury on chronic kidney disease, stage 2. Her creatinine on admission was 2.11 and at discharge was 1.01. 6. Chronic diastolic heart failure, compensated. 7. Anxiety. 8. Hypertension. 9. Paroxysmal atrial fibrillation. 10. Diabetes mellitus, type 2. 11. Chronic anemia. PLAN: Plan of care was discussed with the patient and the family in detail. They stated understanding. Job ID: [id number]
[2019-09-21] MEDS ORDERED: Insulin Glargine 10 UNITS in Pre-Filled Syringe 1 EACH SC SCH (09:00)
== END 2019-09-20 18:17 | disposition home or self-care (01) | DRG 638 ==
LOC: ERS 09:49 → IMCU/EMU 11:30 → ONC 09-19 17:45
PROVIDERS: ADMIT Internal Medicine; ATTEND Internal Medicine
DX: E11.10 Type 2 diabetes mellitus with ketoacidosis without coma (principal); E87.1 Hypo-osmolality and hyponatremia; I50.32 Chronic diastolic (congestive) heart failure; I13.0 Hypertensive heart and chronic kidney disease with heart failure and stage 1 through stage 4 chronic kidney disease, or unspecified chronic kidney disease; N17.9 Acute kidney failure, unspecified; E03.9 Hypothyroidism, unspecified; E11.649 Type 2 diabetes mellitus with hypoglycemia without coma; D64.9 Anemia, unspecified; E83.39 Other disorders of phosphorus metabolism; I48.0 Paroxysmal atrial fibrillation; F41.9 Anxiety disorder, unspecified; E78.5 Hyperlipidemia, unspecified; N18.2 Chronic kidney disease, stage 2 (mild); E86.0 Dehydration; Z79.4 Long term (current) use of insulin; Z91.14 Patient's other noncompliance with medication regimen; Z88.8 Allergy status to other drugs, medicaments and biological substances
CPT/HCPCS: 36415; 36416; 71046; 80048; 80053; 81003; 82010; 82330; 82803; 83735; 83930; 84100; 84439; 84443; 84484; 85025; 85379; 87040; 87086; 93005; 96360; 96361; 96365; 96366; J1815; J3480; J3490

== ENCOUNTER 2019-10-22 23:32 | Emergency (ER) | payer SELFPAY ==
[2019-10-23] MEDS ORDERED: Midazolam HCl 2 mg/2 ml Vial ONE (00:34)
[2019-10-23] MEDS ORDERED: Bupivacaine 0.25% 10 ML VIAL ONE (00:34)
[2019-10-23] MEDS ORDERED: Ketorolac Tromethamine 30 MG/ML VIAL ONE (00:35)
[2019-10-23] MEDS ORDERED: Morphine 4 MG/ML VIAL ONE (00:35)
[2019-10-23] MEDS ORDERED: Fentanyl 100 MCG/2 ML VIAL ONE (00:46)
[2019-10-23] MEDS ORDERED: Ondansetron PF 4 MG/2 ML Vial ONE (00:52)
--- NOTE | 2019-10-23 08:56 | RAD ---
THREE VIEWS OF THE LEFT WRIST: INDICATION: Status post reduction. COMPARISON: Prior exam dated 10/23/2019 at 1:09 a.m. FINDINGS: The dorsally comminuted distal radius fracture and mildly displaced ulnar styloid process fracture ar e not appreciably changed in alignment. There has been interval placement of an overlying fiberglass splint. Diffuse osteopenia is similar appearing. IMPRESSION: Interval splinting of the distal radius and ulnar styloid process. POS: BH
--- NOTE | 2019-10-23 09:00 | RAD ---
LEFT WRIST 2 VIEWS: INDICATION: History of a fall. COMPARISON: None. IMPRESSION: There is a comminuted, intraarticular, dorsally impacted and dorsally angulated distal radius fractur e. There is a moderately displaced ulnar styloid base fracture. There is soft tissue swelling surro unding the left breast. There is diffuse osteopenia. POS: BH
--- NOTE | 2019-10-23 09:09 | RAD ---
LEFT ELBOW 3 VIEWS: INDICATION: History of fall and left elbow pain. COMPARISON: None. IMPRESSION: There is diffuse osteopenia. No acute fracture or subluxation is evident. No joint capsular distent ion is noted. Radiocapitellar alignment appears within normal limits. POS: BH
--- NOTE | 2019-10-23 09:15 | RAD ---
LEFT HUMERUS 2 VIEWS: INDICATION: History of fall with left arm pain. COMPARISON: None. IMPRESSION: There is diffuse osteopenia. No acute fracture is evident. POS: BH
== END 2019-10-23 02:47 | disposition home or self-care (01) ==
LOC: ERS 23:32
DX: S52.572A Other intraarticular fracture of lower end of left radius, initial encounter for closed fracture (principal); E11.9 Type 2 diabetes mellitus without complications; E78.5 Hyperlipidemia, unspecified; I10 Essential (primary) hypertension; E03.9 Hypothyroidism, unspecified; I48.91 Unspecified atrial fibrillation; F41.9 Anxiety disorder, unspecified; F32.9 Major depressive disorder, single episode, unspecified; W10.9XXA Fall (on) (from) unspecified stairs and steps, initial encounter
CPT/HCPCS: 25660; 96374; 96375; J1885; J2250; J2270; J2405; J3010; S0020

== ENCOUNTER 2019-10-31 20:02 | Inpatient (IN) | payer SELFPAY ==
[2019-10-31 20:31] LABS: #Monocytes 0.4 thou/uL (0.11-0.59); #Neutrophils 4.9 thou/uL (1.40-6.50); %Basophils 0.3 % (0.0-1.0); %Eosinophils 0.5 % (0.0-10.0); %Lymphocytes 16.3 % (21.0-51.0); Hemoglobin 10.3 g/dL (12.0-16.0); Mean Corpuscular HGB CONC 31.2 g/dL (32.0-36.0); Mean Corpuscular Hemoglobin 32.1 pg (27.0-31.0); Mean Platelet Volume 8.8 fL (7.4-10.4); Platelet Count 252 thou/uL (130-400); RBC Distribution Width 12.2 % (11.5-14.5); White Blood Cell (WBC) Count 6.4 thou/uL (4.8-10.8)
[2019-10-31] MEDS ORDERED: Ondansetron PF 4 MG/2 ML Vial ONE ×2 (20:33→21:55)
[2019-10-31] MEDS ORDERED: Norepinephrine 4 MG/4 ML VIAL ONE (20:34)
[2019-10-31] MEDS ORDERED: Norepinephrine 8 MG in Dextrose 5% in Water 242 ML IVPB SCH (20:45)
[2019-10-31 20:56] LABS: ALT (SGPT) 12 U/L (8-55); AST (SGOT) 25 U/L (5-34); Albumin 3.2 g/dL (3.4-4.8); Alkaline Phosphatase 115 U/L (40-110); BUN (Urea Nitrogen) 38 mg/dL (9.8-20.1); Bilirubin, Total 0.5 mg/dL (0.2-1.2); Calc. Creatinine Clearance 0 mL/min (70-130); Calcium 7.7 mg/dL (7.8-10.44); Carbon Dioxide Less than 8 mmol/L (23-31); Chloride 98 mmol/L (98-107); Estimated GFR-MDRD 25; Globulin 2.6 g/dL (2.4-3.5); Lipase 12 U/L (8-78); Potassium 5.3 mmol/L (3.5-5.1); Protein, Total 5.8 g/dL (6.0-8.3); Sodium 128 mmol/L (136-145)
[2019-10-31 21:01] LABS: Glucose 848 mg/dL (80-115)
[2019-10-31] MEDS ORDERED: Insulin Regular 300 UNITS/3 ML VIAL ONE (21:01)
[2019-10-31] MEDS ORDERED: Calcium Gluc 4.6 MEQ/10 ML (100 MG/ML) ONE (21:16)
--- NOTE | 2019-10-31 21:25 | RAD ---
Portable frontal chest radiograph: 10/31/2019 COMPARISON: 09/07/2019 HISTORY: Central line placement FINDINGS: Supine imaging is provided, limiting assessment for pneumothorax and pleural fluid. There i s a right vascular catheter, distal tip overlying the cavoatrial junction. Heart and mediastinal contours are stable. Stable increased linear interstitial density and pulmonary hyperinflation. IMPRESSION: Portable chest radiograph as detailed above.
[2019-10-31] MEDS ORDERED: Insulin Regular 100 units/100 ml in NS IVPB SCH (21:30)
[2019-10-31] MEDS ORDERED: Aspirin Chewable 81 MG TAB ONE ×2 (21:55→21:56)
[2019-10-31 22:06] LABS: Bilirubin Negative (Negative); Blood, Urine Negative (Negative); Clarity Clear (Clear); Glucose, Urine (Dipstick) Greater than 1000 mg/dL (Negative); Leukocyte Negative Leu/uL (Negative); Nitrite Negative (Negative); Protein, Urine (Dipstick) Negative (Neg-Trace); Urobilinogen Normal mg/dL (Less than 2)
[2019-10-31] MEDS ORDERED: Promethazine HCl 25 MG/ML VIAL ONE (22:30)
[2019-10-31 22:47] VITALS: BMI 23.2
[2019-10-31] MEDS ORDERED: Sodium Chloride 0.9% 1,000 ML IV PRN ×4 (23:27)
[2019-10-31] MEDS ORDERED: CCU Electrolyte Replacement 1 EACH IVPB ONE (23:27)
[2019-10-31] MEDS ORDERED: NS 0.9% w/ 20 MEQ KCL 1,000 ML IV PRN ×2 (23:27)
[2019-10-31] MEDS ORDERED: Dextrose 5 %-0.45 % NaCl 1,000 ML IV PRN (23:27)
[2019-10-31] MEDS ORDERED: HUMULIN R 100 UNITS in Sodium Chloride 0.9% 100 ML IVPB SCH (23:30)
[2019-10-31] MEDS ORDERED: Potassium Phosphate 12 MMOL in Sodium Chloride 0.9% 250 ML 250 ML IV PRN (23:31)
[2019-10-31] MEDS ORDERED: Potassium Chloride 20 MEQ TAB PO PRN (23:31)
[2019-10-31] MEDS ORDERED: Potassium Chloride 40 MEQ in Sodium Chloride 0.9% 250 ML 250 ML IVPB PRN (23:31)
[2019-10-31] MEDS ORDERED: CCU ELECTROLYTE REPLACEMENT PROTOCOL FS PRN (23:31)
[2019-10-31] MEDS ORDERED: Potassium Phosphate 15 MMOL in Sodium Chloride 0.9% 250 ML 250 ML IV PRN (23:31)
[2019-10-31] MEDS ORDERED: Potassium Phosphate 9 MMOL in Sodium Chloride 0.9% 100 ML IVPB PRN (23:31)
[2019-10-31] MEDS ORDERED: PHOS-NAK 1 PKT PACK PO PRN ×2 (23:31)
[2019-10-31] MEDS ORDERED: Magnesium Oxide 400 MG TAB PO PRN ×2 (23:31)
[2019-10-31] MEDS ORDERED: Potassium Chloride 40 MEQ in Premix Bag 1 BAG IVPB PRN (23:31)
[2019-10-31] MEDS ORDERED: Magnesium 2 GM/50 ML 2 GM in Premix Bag 1 BAG IVPB PRN (23:31)
[2019-10-31] MEDS ORDERED: CCU Electrolyte Replacement 1 EACH FS ONE (23:49)
[2019-11-01 00:27] LABS: Lactic Acid 2.4 mmol/L (0.5-2.2)
[2019-11-01 00:37] LABS: Troponin I 0.024 ng/mL (< 0.028)
[2019-11-01 01:00] LABS: Anion Gap 24 mmol/L (10-20); BUN (Urea Nitrogen) 36 mg/dL (9.8-20.1); Calc. Creatinine Clearance 35 mL/min (70-130); Chloride 107 mmol/L (98-107); Estimated GFR-MDRD 29; Potassium 3.6 mmol/L (3.5-5.1); Sodium 135 mmol/L (136-145)
[2019-11-01 01:07] LABS: Carbon Dioxide 8 mmol/L (23-31); Glucose 555 mg/dL (80-115)
[2019-11-01 01:11] LABS: Phosphorus 3.2 mg/dL (2.3-4.7)
[2019-11-01 02:57] LABS: Troponin I 0.046 ng/mL (< 0.028)
--- NOTE | 2019-11-01 03:34 | HP ---
PRIMARY CARE PHYSICIAN: Dr. Tiffanie Chiu. CHIEF COMPLAINT: Not feeling good this evening. HISTORY OF PRESENT ILLNESS: Ms. Yanez is a very pleasant 63-year-old female, who has a history of diabetes mellitus, which is insulin dependent. She also was recently diagnosed with atrial fibrillation and is on Eliquis for this. She says that she woke up this morning feeling fine, but she woke up around 3 a.m. She admits that she did not take her long-acting insulin, but then states that she had been taking her short-acting insulin with lunch. She says as the day progressed, she started feeling bad. She says that she spent the day with her , who had recently had a heart attack and was in the ICU after having a bypass surgery, then she started feeling extremely tired and she says because she was feeling tired, she knew that this was "her DKA." She says that this is typically how she feels when she has diabetic ketoacidosis. She started to get progressively worse and apparently presented herself to the emergency room. There, she was found to have a blood sugar of around 800. She was also acidotic with an elevated anion gap and she is being admitted for DKA. She says she can not understand how her blood sugar went so bad so quickly, in that she says she "felt okay" earlier today. She denies having any fevers, no chills. She denies any night sweats. She denies any cough or congestion. She denies any blurred vision, or double vision, but does admit to having a dry mouth. No nausea, no vomiting, and she says other than this morning, she is compliant with her insulin. REVIEW OF SYSTEMS: All systems were reviewed and are negative except for that mentioned in the history of present illness. PAST MEDICAL HISTORY: Significant for diabetes mellitus, insulin dependent. She has had several episodes of DKA in the past. She is not really sure what causes these episodes, but states she believes it is due to stress. She has a history of atrial fibrillation, hypothyroidism, and hypercholesterolemia. There is some question of whether or not she has had a stroke. The patient's daughter says she has, the patient denies it. PAST SURGICAL HISTORY: She has had a lumpectomy and this was in 1998 and this was on the left. ALLERGIES: TO MORPHINE. SOCIAL HISTORY: She is a nonsmoker and nondrinker. She is . She denies any illicit drug use and code status is full code. Her surrogate decision maker is her and her daughter. FAMILY HISTORY: Significant for coronary artery disease in her brother, who at age 39 with a heart attack, diabetes mellitus is in the mother. She says her father was an alcoholic and that is why she does not drink. CURRENT MEDICATIONS: Include; 1. Levemir insulin 10 units in the morning and then she is on a sliding scale with the short-acting insulin. 2. She is on Eliquis 5 mg twice daily. 3. Levothyroxine 100 mcg daily. 4. Vitamin D3 400 units daily. 5. She says she had been on Tylenol 3, but has changed to ibuprofen. PHYSICAL EXAMINATION: GENERAL: She is alert and oriented. She appears to be in no acute distress. She is well developed and well nourished. VITAL SIGNS: Her blood pressure is 123/59, heart rate 90, respiratory rate of 18, and she is afebrile. HEENT: Pupils are equal, round, and reactive to light. Extraocular muscles are intact. Her sclerae anicteric. Throat, she has dry mucous membranes, but no erythema. No exudates. NECK: There is no adenopathy. No bruits. LUNGS: Clear to auscultation. There is no wheezing. No rales. No rhonchi. CARDIOVASCULAR: She has a normal S1, S2. I did not appreciate an S3 or S4. She did have a grade 2/6 systolic murmur along the lower left sternal border. ABDOMEN: Soft, nontender, and nondistended. Positive for bowel sounds. There is no rebound or guarding. No evidence of any organomegaly. She did have a bruise on the left lower abdomen, but there is no pulsatile mass and no tenderness in that area. EXTREMITIES: There is no calf tenderness. No joint effusions. No edema. She does have palpable dorsalis pedis pulses bilaterally. NEUROLOGIC: Grossly nonfocal. She is moving all of her extremities. Her reflexes are equivocal. SKIN AND INTEGUMENT: There are no significant skin changes. No rash. She did have some mycotic nails. LABORATORY DATA: Her sodium is 128, potassium 5.3, chloride is 98, CO2 is less than 8. BUN of 38, creatinine 2.0, glucose is 848, phosphorus is 5.0. TSH was 1.6. Her white blood cell count 6.4, hemoglobin 10.3, hematocrit is 33, platelet count is 252 and beta hydroxybutyrate was 9.01. Urinalysis showed significant glucose in the urine, but ketones are negative. There are negative leukocyte esterase. She had a chest x-ray, which is essentially clear. There is no evidence of any cardiomegaly. She did have what appears to be a little bit hyperexpanded and flattened diaphragms and this is by my reading. ASSESSMENT: This is a pleasant 63-year-old female, who presented to the emergency room in; 1. Diabetic ketoacidosis. Her blood glucose is elevated. She has a high anion gap metabolic acidosis, It is unclear the precipitating factor, but likely could be due to stress with her in the hospital undergoing bypass surgery. She is being admitted to the ICU. We will continue the insulin drip, IV fluid resuscitation and electrolyte management. She will be left n.p.o. except for ice chips and we will also trend her cardiac enzymes. There is no evidence of any infection and for this reason, we will hold off on any antibiotics at this time. 2. Atrial fibrillation. Currently, her heart rate is under control. Hopefully, by morning, she will be able to take medications by mouth and we can restart Eliquis. 3. History of hypothyroidism. This appears to be clinically stable. She can't afford to miss a few doses of the levothyroxine, but hopefully this can be restarted again in the a.m. 4. Acute kidney injury. I suspect this is due to volume depletion and hopefully, this will correct when she is rehydrated. 5. Hyponatremia. Again, this is likely due to the elevated glucose and should correct with correction of the diabetic ketoacidosis. Job ID: [id number]
[2019-11-01] MEDS: D5 1/2 NS w/20 mEq KCL 1,000 ML IV PRN ×2 (04:01→13:29)
[2019-11-01 04:30] LABS: Hemoglobin A1c 10.7 % (4.0-6.0)
[2019-11-01 04:43] LABS: Anion Gap 13 mmol/L (10-20); BUN (Urea Nitrogen) 32 mg/dL (9.8-20.1); Calc. Creatinine Clearance 42 mL/min (70-130); Calcium 7.8 mg/dL (7.8-10.44); Carbon Dioxide 16 mmol/L (23-31); Chloride 113 mmol/L (98-107); Estimated GFR-MDRD 36; Glucose 238 mg/dL (80-115); Potassium 3.6 mmol/L (3.5-5.1); Sodium 138 mmol/L (136-145)
[2019-11-01 05:17] LABS: Phosphorus 2.2 mg/dL (2.3-4.7)
[2019-11-01 07:19] LABS: Phosphorus 2.1 mg/dL (2.3-4.7)
[2019-11-01 07:30] LABS: Anion Gap 13 mmol/L (10-20); BUN (Urea Nitrogen) 30 mg/dL (9.8-20.1); Calc. Creatinine Clearance 45 mL/min (70-130); Calcium 7.8 mg/dL (7.8-10.44); Carbon Dioxide 15 mmol/L (23-31); Chloride 114 mmol/L (98-107); Estimated GFR-MDRD 38; Glucose 211 mg/dL (80-115); Potassium 3.6 mmol/L (3.5-5.1); Sodium 138 mmol/L (136-145)
[2019-11-01 10:25] LABS: Phosphorus 1.5 mg/dL (2.3-4.7)
[2019-11-01] MEDS ORDERED: Dextrose 5% in Water 1,000 ML IV PRN (17:01)
[2019-11-01] MEDS ORDERED: Dextrose 50% Abboject 50 ML SYRINGE SLOW IVP PRN (17:01)
[2019-11-01] MEDS ORDERED: Ondansetron PF 4 MG/2 ML Vial IVP PRN (17:03)
[2019-11-01] MEDS ORDERED: Ondansetron ODT 4 MG TAB SL PRN (17:03)
[2019-11-01] MEDS: Insulin Regular 300 UNITS/3 ML VIAL SC SCH (18:15)
[2019-11-01] MEDS: Sodium Chloride 0.45% 1,000 ML IV SCH (18:15)
[2019-11-01] MEDS: Acetaminophen 325 MG TAB PO PRN (18:19)
[2019-11-01] MEDS: Flecainide 50 MG TAB PO SCH (19:53)
[2019-11-01] MEDS: Apixaban 5 MG TAB PO SCH (19:53)
[2019-11-01] MEDS ORDERED: Insulin Regular 300 UNITS/3 ML VIAL SC SCH (21:00)
--- NOTE | 2019-11-01 21:16 | PDOC.HOSPP ---
- Subjective Encounter Date: 11/01/19 Encounter Time: 21:00 Subjective: The patient had some wrist pain earlier today from broken wrist. No abdominal pain, nausea and vomiting. She takes 10 units of levemir at night. - Objective Vital Signs & Weight: Vital Signs (12 hours) Temp 11/01/19 20:00 98.4 F 11/01/19 15:00 99.5 F 11/01/19 12:00 98.2 F 11/01/19 11:00 99.1 F Weight Admit Weight 148 lb 2.41 oz Weight 148 lb 2.41 oz Most Recent Monitor Data Heart Rate from ECG 72 NIBP 117/51 NIBP BP-Mean 73 Respiration from ECG 13 SpO2 100 I&O: 10/31/19 11/01/19 11/02/19 06:59 06:59 06:59 Intake Total 1794 3143.1 Output Total 1205 646 Balance 589 2497.1 Result Diagrams: 10/31/19 20:17 11/01/19 06:40 Additional Labs: Accuchecks 11/01/19 11/01/19 11/01/19 19:55 17:06 16:10 POC Glucose 234 H 216 H 179 H 11/01/19 11/01/19 11/01/19 15:21 14:17 13:09 POC Glucose 166 H 133 H 131 H 11/01/19 11/01/19 11/01/19 12:09 11:16 10:20 POC Glucose 123 H 129 H 93 11/01/19 11/01/19 11/01/19 09:21 08:11 06:51 POC Glucose 122 H 161 H 201 H 11/01/19 11/01/19 11/01/19 05:44 04:40 03:33 POC Glucose 217 H 196 H 227 H 11/01/19 11/01/19 11/01/19 02:20 01:28 00:15 POC Glucose 303 H 350 H 441 H 10/31/19 10/31/19 23:15 21:50 POC Glucose 548 H Greater than 550 H* Hospitalist ROS - Review of Systems Constitutional: denies: fever, chills - Medication Medications: Active Medications Generic Name Dose Route Start Last Admin Trade Name Freq PRN Reason Stop Dose Admin Acetaminophen 650 mg 11/01/19 17:03 11/01/19 18:19 Tylenol PO 650 mg Q6H PRN Administration Headache, Aches or Pain Apixaban 5 mg 11/01/19 21:00 11/01/19 19:53 Eliquis PO 5 mg BID JANICE Administration Flecainide Acetate 50 mg 11/01/19 21:00 11/01/19 19:53 Tambocor PO 50 mg BID JANICE Administration Potassium Chloride/Dextrose/Sod Cl 1,000 mls @ 250 mls/hr 10/31/19 23:27 09/10 13:29 D5 1/2 Ns W/20 Meq Kcl IV 1,000 mls .Q4H PRN Administration Step 4 of DKA Protocol Protocol Potassium Chloride/Sodium Chloride 1,000 mls @ 250 mls/hr 10/31/19 23:27 09/10 01:27 Ns 0.9% W/ 20 Meq Kcl IV 1,000 mls .Q4H PRN Administration SEE STEP 3 OF DKA PROTOCOL Protocol Potassium Phosphate 9 mmol/ 103 mls @ 25.75 mls/hr 10/31/19 23:31 11/01/19 11 :34 Sodium Chloride IVPB 103 mls ASDIR PRN Administration Phosphate 1.0-1.8 Sodium Chloride 1,000 mls @ 100 mls/hr 11/01/19 17:15 11/01/19 18:15 1/2 Normal Saline IV 1,000 mls .Q10H JANICE Administration Insulin Human Regular 4 units 11/01/19 21:00 11/01/19 19:54 Humulin R SC 4 unit HS JANICE Administration Insulin Human Regular 4 units 11/01/19 18:00 11/01/19 18:15 Humulin R SC 4 unit 1800 JANICE Administration - Exam General Appearance: NAD, awake alert Eye: PERRL, anicteric sclera ENT: normocephalic atraumatic, no oropharyngeal lesions Neck: supple, symmetric, no JVD, no thyromegaly Heart: RRR, no murmur, no gallops Respiratory: CTAB, no wheezes, no rales, no ronchi Gastrointestinal: soft, non-tender, non-distended, normal bowel sounds Extremities: no cyanosis, no clubbing, no edema Extremities - other findings: broken left wrist, in cast Skin: normal turgor, no lesions, no rashes Neurological: cranial nerve grossly intact, normal sensation to touch, no focal deficits, no new deficit Musculoskeletal: normal tone, normal strength, no muscle wasting Psychiatric: normal affect, normal behavior, A&O x 3 Hosp A/P - Plan This is a 63 year old male with past medical history of type I diabetes who missed her insulin dose and presented in DKA DKA - resolved - continue glargine 10 units qam, blood sugars controlled now CRISTA - creatinine 1.39 - continue NS at 100/hour, check creatinine tomorrow Hypothyroidism - levothyroxine Distal radius and ulnar fracture - patient has wrist intact - tylenol prn - no NSAIDs due to CRISTA Dispo: likely d/c in am
[2019-11-01] MEDS ORDERED: Sodium Chloride 0.45% 1,000 ML IV SCH (21:30)
[2019-11-02] MEDS: Sodium Chloride 0.45% 1,000 ML IV SCH (03:21)
--- NOTE | 2019-11-02 03:57 | CON ---
DATE OF CONSULTATION: HISTORY: Christie Yanez is a very pleasant 63-year-old female. She is an excellent historian. She has had type 1 diabetes since she is 40 years of age. Her came in with myocardial infarction, went to lab coordinator and had to have coronary bypass grafting yesterday. She admits that she did not take her insulin that day and then went home after his surgery and had to come back two hours later. She was found to have metabolic acidosis and hyperglycemia. Her glucose was close to 900. She has been hospitalized once this year for diabetes complications, but was not hospitalized last year. Amazingly, she has had no eye disease, although she did see an eye doctor regularly. She denies peripheral neuropathy. Actually, she has had a tuning fork test of her sensation in her feet and has nothing wrong with her sensation in her feet. PAST MEDICAL HISTORY: Remarkable for atrial fibrillation, hypothyroidism, and lipid disorder as well as a breast lumpectomy. FAMILY HISTORY: Negative for lung disease in early age. There is a positive history of diabetes and vascular disease. SOCIAL HISTORY: She is a nonsmoker and nondrinker. She is very educated about her insulin and checks her blood glucose four times a day. She is only on 10 units of Levemir in the morning and a sliding scale before lunch and dinner, but does not take insulin in the morning when she eats breakfast. She is on Eliquis and Synthroid. REVIEW OF SYSTEMS: Ten points otherwise negative. PHYSICAL EXAMINATION: GENERAL: Very pleasant, healthy-appearing female, in no distress. VITAL SIGNS: Oximetry is 100% on room air, heart rate is in the 70s, blood pressure is 117/51, and respiratory rate is in the teens. HEENT: Pupils are equal. Sclerae are anicteric. NECK: Supple. No lymphadenopathy. LUNGS: Clear. HEART: Regular rhythm. No S3. ABDOMEN: Soft and nontender. EXTREMITIES: Without clubbing, cyanosis, or edema. NEUROLOGIC: Nonfocal. She actually has excellent proprioception in her lower extremities. LABORATORY DATA: Sodium 138, potassium 3.6, chloride 114, bicarb 15, BUN 30, creatinine 1.39, and glucose 211. White count 6.4, hemoglobin 10.3, 252. Beta hydroxybutyrate was 9 when she came in. IMPRESSION: 1. Diabetic ketoacidosis, resolved. 2. Hyperosmolar state, resolved. I would be okay with glucose in the 200 to 300 range, but she needs to get back on her long-acting insulin in the morning and receive insulin tonight. She should stay in the ICU. I suspect the presence of her diabetic ketoacidosis was related to missing insulin when she was taking care of and attending to her who is in the hospital left bypass surgery. TIME SPENT: This is a 70-minute consult, 50% of the time spent on the unit coordinating care. Job ID: [id number]
[2019-11-02 05:45] LABS: Hemoglobin 8.6 g/dL (12.0-16.0); Mean Corpuscular HGB CONC 32.4 g/dL (32.0-36.0); Mean Corpuscular Hemoglobin 31.8 pg (27.0-31.0); Mean Corpuscular Volume 98.2 fL (78.0-98.0); Mean Platelet Volume 7.9 fL (7.4-10.4); Platelet Count 225 thou/uL (130-400); RBC Distribution Width 12.4 % (11.5-14.5); Red Blood Cell (RBC) Count 2.72 mill/uL (4.20-5.40); White Blood Cell (WBC) Count 9.7 thou/uL (4.8-10.8)
[2019-11-02] MEDS ORDERED: Levothyroxine Sodium 100 MCG TAB PO SCH (06:00)
[2019-11-02 06:05] LABS: ALT (SGPT) 35 U/L (8-55); AST (SGOT) 50 U/L (5-34); Albumin 2.8 g/dL (3.4-4.8); Alkaline Phosphatase 105 U/L (40-110); Anion Gap 11 mmol/L (10-20); BUN (Urea Nitrogen) 14 mg/dL (9.8-20.1); Bilirubin, Total 0.3 mg/dL (0.2-1.2); Calc. Creatinine Clearance 56 mL/min (70-130); Calcium 8.1 mg/dL (7.8-10.44); Carbon Dioxide 15 mmol/L (23-31); Chloride 113 mmol/L (98-107); Estimated GFR-MDRD 50; Globulin 2.3 g/dL (2.4-3.5); Glucose 176 mg/dL (80-115); Potassium 4.1 mmol/L (3.5-5.1); Protein, Total 5.1 g/dL (6.0-8.3); Sodium 135 mmol/L (136-145)
[2019-11-02] MEDS: Acetaminophen 325 MG TAB PO PRN ×2 (07:36→14:16)
[2019-11-02] MEDS ORDERED: Insulin Glargine 10 UNITS in Pre-Filled Syringe SC SCH (09:00)
[2019-11-02] MEDS ORDERED: Non-Formulary Item 1 EACH (Insulin Detemir [Levemir Flextouch] 10 UNIT) SQ SCH (09:00)
--- NOTE | 2019-11-02 09:24 | PRG ---
DATE OF SERVICE: 11/02/2019 SUBJECTIVE: She did well overnight. She is off the insulin drip and back on her Lantus insulin. OBJECTIVE: VITAL SIGNS: Temperature 99, pulse 82, blood pressure 99/43, and O2 saturation 100%. HEENT: Unremarkable. NECK: No adenopathy or JVD. CHEST: Clear to auscultation. CARDIAC: S1 and S2 regular. ABDOMEN: Soft. EXTREMITIES: No edema. LABORATORY DATA: Sodium 135, potassium 4.1, chloride 113, CO2 of 15, anion gap 7, BUN 14, creatinine 1.1, and glucose 176. White blood cell count 9.7, hematocrit 26.7, and platelet count 225. ASSESSMENT: 1. Diabetic ketoacidosis. 2. Type 1 diabetes mellitus. PLAN: She can transfer out to the medical floor, and hopefully, home soon. Job ID: [id number]
[2019-11-02] MEDS: Flecainide 50 MG TAB PO SCH (09:47)
[2019-11-02] MEDS: Apixaban 5 MG TAB PO SCH (09:47)
[2019-11-02 11:06] VITALS: TEMP 99.3
[2019-11-02] MEDS ORDERED: Dextrose 50% Abboject 50 ML SYRINGE SLOW IVP PRN (11:14)
[2019-11-02] MEDS ORDERED: Dextrose 5% in Water 1,000 ML IV PRN (11:14)
[2019-11-02] MEDS ORDERED: HumaLOG 300 UNITS/3 ML VIAL SC PRN (11:14)
[2019-11-02] MEDS: Insulin Regular 300 UNITS/3 ML VIAL SC SCH (17:27)
--- NOTE | 2019-11-02 22:39 | DIS ---
DATE OF ADMISSION: 10/31/2019 DATE OF DISCHARGE: 11/02/2019 DISCHARGE DIAGNOSES: Diabetic ketoacidosis, hyponatremia, anemia, acute kidney injury, transaminitis. BRIEF HISTORY OF PRESENT ILLNESS: This is a 63-year-old female, with a past medical history of type 1 diabetes, who had presented to the emergency room with feeling bad overall. The patient states she had went to visit her who was in the ICU and was feeling extremely tired. The patient states that she missed her Levemir dose because she was visiting her . She presented to the emergency room and was found to have a blood sugar of 800. She was noted to have a bicarbonate level of 8 and an anion gap of 24 and was admitted for DKA. HOSPITAL COURSE: DKA: The patient was treated with an insulin drip and blood sugars came down to the 170s. She was resumed on her Levemir 10 units SC in the morning on the . Her blood sugar had gone up to 318 at 11 a.m., but then came down to 249. The patient denies any nausea or vomiting. The patient did have a hemoglobin A1c that was greater than 10. The patient states that she will be seeing an dowel pointer soon and will follow up with her PCP in a week. She will be resumed on her same dose of levemir Transaminitis: The patient was noted to have AST of 50. She denied any abdominal pain, nausea, or vomiting. This can be repeated as an outpatient. CRISTA: The patient had presented with a creatinine of 2.0. She was hydrated with IV fluids and repeat creatinine on the day of discharge was 1.11. She can get a repeat BMP done as an outpatient. Macrocytic anemia: The patient had a hemoglobin of 10.3, which dropped to 8.6 on 11/02. This might have been secondary to IV fluids that she was receiving. The patient denied any blood in her stools. The patient did have a vitamin B12 and folate which were normal. She also had a TSH which was normal. The patient got a repeat CBC done as an outpatient. Hypothyroidism: The patient will continue her levothyroxine. Distal radius and ulnar fracture: The patient has a cast in place. She will follow up with her PCP with regard to this. Depression: The patient had reported that she was depressed because she had been in and out of the hospital multiple times recently. She denied any suicidal ideation. The patient felt that she should be started on an antidepressant. She was started on Zoloft 25 mg p.o. daily. She was advised that this could increase her risk of suicidal ideation and family member should monitor her closely. She should follow up with outpatient [facility] in [facility]. She was given a phone number for initial consultation and appointment. DISCHARGE PHYSICAL EXAMINATION: VITAL SIGNS: Temperature is 99.3, heart rate is 77, blood pressure 142/61, respiratory rate is 17. GENERAL: The patient is alert, awake, oriented x3. CVS: Regular rate and rhythm, with no murmurs, rubs, or gallops. LUNGS: Clear to auscultation bilaterally. ABDOMEN: Positive bowel sounds, soft, nontender, nondistended. EXTREMITIES: No edema. PERTINENT LABORATORY DATA: CBC, 11/02: Shows hemoglobin of 8.6, hematocrit 26.7, MCV 98.2. BMP, 11/02: Shows a sodium of 135, chloride of 113, bicarb of 15, creatinine of 1.11, glucose of 176. LFTs: Shows AST 50, ALT 35, alkaline phosphatase of 105. Vitamin B12: 425. Folate: 7.70. TSH: 1.60. UA: Shows greater than 1000 glucose, 60 ketones. Beta hydroxybutyrate: 9.01. PERTINENT IMAGING: Chest x-ray, 10/31: Shows stable increased linear interstitial density in pulmonary hyperinflation. DISCHARGE CONDITION: Stable for home. DIET: Diabetic diet. ACTIVITY: As tolerated. DISCHARGE MEDICATIONS: 1. Levothyroxine 100 mcg p.o. daily. 2. Eliquis 5 mg p.o. b.i.d. 3. Florastor 250 mg p.o. daily. 4. Flecainide 50 mg p.o. b.i.d. 5. Vitamin D3 at 400 units p.o. daily. 6. Tylenol 650 mg p.o. b.i.d. 7. Zoloft 25 mg p.o. daily. DISCHARGE INSTRUCTIONS: The patient should follow up with her PCP in a week and her dowel pointer. She was prescribed Zoloft for her depression and was advised this may increase her suicidal thoughts initially and she should follow up with [facility] as an outpatient and her PCP in a week for further titration. The patient should come back to the ER if she has any signs that she will hurt herself. The patient can also come back to the ER if she has any polyphagia, polydipsia, severe abdominal pain, nausea, or vomiting. Job ID: [id number] MTDD
== END 2019-11-02 18:45 | disposition home or self-care (01) | DRG 638 ==
LOC: ERS 20:02 → CCU 22:20
PROVIDERS: ADMIT Internal Medicine; ATTEND Internal Medicine
DX: E10.10 Type 1 diabetes mellitus with ketoacidosis without coma (principal); E87.1 Hypo-osmolality and hyponatremia; N17.9 Acute kidney failure, unspecified; M84.43 Pathological fracture, ulna and radius; R74.9 Abnormal serum enzyme level, unspecified; D53.9 Nutritional anemia, unspecified; E03.9 Hypothyroidism, unspecified; I95.9 Hypotension, unspecified; I48.91 Unspecified atrial fibrillation; I25.10 Atherosclerotic heart disease of native coronary artery without angina pectoris
CPT/HCPCS: 36415; 36416; 36556; 51702; 71045; 80048; 80053; 81003; 82010; 82607; 82746; 83036; 83605; 83690; 83735; 84100; 84443; 84484; 85025; 85027; 87040; 87086; 96365; 96367; 96374; 96375; 96376; J1815; J2405; J2550; J3480; J3490; J7070

== ENCOUNTER 2019-11-07 07:12 | Inpatient (IN) | payer SELFPAY ==
[2019-11-07 07:41] LABS: Hemoglobin 11.4 g/dL (12.0-16.0); Mean Corpuscular HGB CONC 32.5 g/dL (32.0-36.0); Mean Corpuscular Hemoglobin 32.3 pg (27.0-31.0); Mean Corpuscular Volume 99.5 fL (78.0-98.0); Mean Platelet Volume 8.1 fL (7.4-10.4); Platelet Count 289 thou/uL (130-400); RBC Distribution Width 12.5 % (11.5-14.5); Red Blood Cell (RBC) Count 3.54 mill/uL (4.20-5.40); White Blood Cell (WBC) Count 17.5 thou/uL (4.8-10.8)
--- NOTE | 2019-11-07 07:58 | RAD ---
CHEST 1 VIEW: Date: 11/07/19 HISTORY: Shortness of breath. COMPARISON: 10/31/19. FINDINGS: Borderline hyperinflation. Patchy parenchymal changes are noted bilaterally, although these appear to be stable from prior exam. No confluent pneumonia, overt edema, or pleural effusion. IMPRESSION: Minimal stable appearing chronic changes with some hyperinflation. No significant new process. POS: TPC
[2019-11-07 08:04] LABS: ALT (SGPT) 17 U/L (8-55); AST (SGOT) 18 U/L (5-34); Albumin 3.8 g/dL (3.4-4.8); Alkaline Phosphatase 191 U/L (40-110); BUN (Urea Nitrogen) 20 mg/dL (9.8-20.1); Bilirubin, Total 0.6 mg/dL (0.2-1.2); Calc. Creatinine Clearance 0 mL/min (70-130); Calcium 9.7 mg/dL (7.8-10.44); Chloride 94 mmol/L (98-107); Estimated GFR-MDRD 23; Globulin 3.7 g/dL (2.4-3.5); Potassium 4.7 mmol/L (3.5-5.1); Protein, Total 7.5 g/dL (6.0-8.3); Sodium 127 mmol/L (136-145)
[2019-11-07 08:07] LABS: Band 24 % (5-11); Lymphocytes 12 % (21-51); MDiff Complete? YES; Monocytes 10 % (0-10); Neutrophil 54 % (42-75); RBC Morphology Normal
[2019-11-07 08:10] LABS: Carbon Dioxide Less than 8 mmol/L (23-31); Glucose 557 mg/dL (80-115)
[2019-11-07 08:26] LABS: CKMB 0.7 ng/mL (0-6.6)
[2019-11-07] MEDS ORDERED: HUMULIN R 100 UNITS in Sodium Chloride 0.9% 100 ML IVPB SCH ×2 (08:45→13:34)
[2019-11-07 10:47] LABS: Troponin I 0.019 ng/mL (< 0.028)
[2019-11-07 12:34] LABS: BUN (Urea Nitrogen) 21 mg/dL (9.8-20.1); Calc. Creatinine Clearance 0 mL/min (70-130); Calcium 8.9 mg/dL (7.8-10.44); Chloride 96 mmol/L (98-107); Estimated GFR-MDRD 25; Potassium 4.2 mmol/L (3.5-5.1); Sodium 128 mmol/L (136-145)
[2019-11-07 12:45] LABS: Carbon Dioxide Less than 8 mmol/L (23-31); Glucose 605 mg/dL (80-115)
[2019-11-07] MEDS ORDERED: Ondansetron PF 4 MG/2 ML Vial IVP PRN (13:34)
[2019-11-07] MEDS ORDERED: CCU Electrolyte Replacement 1 EACH IVPB SCH (13:34)
[2019-11-07] MEDS ORDERED: Dextrose 5 %-0.45 % NaCl 1,000 ML IV PRN (13:34)
[2019-11-07] MEDS ORDERED: Ondansetron ODT 4 MG TAB PO PRN (13:34)
[2019-11-07] MEDS ORDERED: Senokot S 8.6-50 MG TAB PO PRN (13:34)
[2019-11-07] MEDS ORDERED: NS 0.9% w/ 20 MEQ KCL 1,000 ML IV PRN ×2 (13:34)
[2019-11-07] MEDS ORDERED: Sodium Chloride 0.9% 1,000 ML IV PRN ×4 (13:34)
[2019-11-07 14:15] LABS: BUN (Urea Nitrogen) 21 mg/dL (9.8-20.1); Calc. Creatinine Clearance 0 mL/min (70-130); Calcium 8.4 mg/dL (7.8-10.44); Chloride 102 mmol/L (98-107); Estimated GFR-MDRD 27; Glucose 406 mg/dL (80-115); Potassium 3.3 mmol/L (3.5-5.1); Sodium 131 mmol/L (136-145)
[2019-11-07 14:18] LABS: Carbon Dioxide Less than 8 mmol/L (23-31)
[2019-11-07 14:21] LABS: Troponin I 0.022 ng/mL (< 0.028)
[2019-11-07] MEDS ORDERED: Potassium Phosphate 15 MMOL in Sodium Chloride 0.9% 250 ML 250 ML IV PRN (14:44)
[2019-11-07] MEDS ORDERED: Potassium Chloride 40 MEQ in Sodium Chloride 0.9% 250 ML 250 ML IVPB PRN (14:44)
[2019-11-07] MEDS ORDERED: Magnesium Oxide 400 MG TAB PO PRN ×2 (14:44)
[2019-11-07] MEDS ORDERED: Potassium Phosphate 12 MMOL in Sodium Chloride 0.9% 250 ML 250 ML IV PRN (14:44)
[2019-11-07] MEDS ORDERED: Potassium Chloride 20 MEQ TAB PO PRN (14:44)
[2019-11-07] MEDS ORDERED: Potassium Chloride 40 MEQ in Premix Bag 1 BAG IVPB PRN (14:44)
[2019-11-07] MEDS ORDERED: PHOS-NAK 1 PKT PACK PO PRN ×2 (14:44)
[2019-11-07] MEDS ORDERED: Magnesium 2 GM/50 ML 2 GM in Premix Bag 1 BAG IVPB PRN (14:44)
[2019-11-07] MEDS ORDERED: CCU ELECTROLYTE REPLACEMENT PROTOCOL FS PRN (14:44)
[2019-11-07] MEDS ORDERED: Potassium Phosphate 9 MMOL in Sodium Chloride 0.9% 100 ML IVPB PRN (14:44)
[2019-11-07 15:12] LABS: Bilirubin Negative (Negative); Blood, Urine Negative (Negative); Clarity Clear (Clear); Glucose, Urine (Dipstick) Greater than 1000 mg/dL (Negative); Leukocyte 250 Leu/uL (Negative); Nitrite Negative (Negative); Protein, Urine (Dipstick) 30 mg/dL (Neg-Trace); RBC/HPF 0-3 HPF (0-3); Squamous Epithelial 0-3 HPF (0-3); Urobilinogen Normal mg/dL (Less than 2)
[2019-11-07 15:13] LABS: Bacteria/HPF 1+ HPF (None Seen)
[2019-11-07 18:15] LABS: Anion Gap 17 mmol/L (10-20); BUN (Urea Nitrogen) 19 mg/dL (9.8-20.1); Calc. Creatinine Clearance 0 mL/min (70-130); Calcium 8.4 mg/dL (7.8-10.44); Carbon Dioxide 14 mmol/L (23-31); Chloride 109 mmol/L (98-107); Estimated GFR-MDRD 34; Glucose 174 mg/dL (80-115); Potassium 3.5 mmol/L (3.5-5.1); Sodium 136 mmol/L (136-145)
[2019-11-07] MEDS ORDERED: Famotidine/PF 20 mg/2ml Vial SLOW IVP SCH (21:00)
--- NOTE | 2019-11-07 21:15 | HP ---
PRIMARY CARE PHYSICIAN: Dr. Tiffanie Chiu. CHIEF COMPLAINT: Weakness and tachypnea. HISTORY OF PRESENT ILLNESS: This is a 64-year-old white female with a known history of insulin-dependent diabetes mellitus type 1, who has had multiple admissions for DKA over the last year. The patient was seen just last week for DKA as well after having not been feeling very well and she skipped the dose of her insulin. She was treated and put back on 10 units of Levemir. Of note, the patient had previously been on 25 units of 70/30 up until August of this year. However, she was noted to have multiple hypoglycemic episodes in the hospital and was eventually decreased down to 10 units daily of Levemir. She presented again soon after this with DKA. Having said that she was taking her insulin, so they tried increasing her up to Levemir 10 units twice a day. However, she became hypoglycemic multiple times in the hospital with this dose of medicine and so she was put back on 10 units. The patient reports that she was feeling okay when she was discharged hospital last week. However, starting last night, she started feeling as she is having a breathe of shallow and very fast and feeling bad all over, a little bit nauseated. No vomiting and some mild cough. She also noticed some increased urinary output over the last few days. The patient did not eat dinner last night. She has not had any of her sliding scale insulin, which she has takes about 6 units with each meal. This morning when she came into the emergency room, she was found to have severely elevated blood sugars and acidosis, found to be back in DKA. Insulin drip and fluids were started and she is starting to feel better now. PAST MEDICAL HISTORY: 1. Diabetes mellitus type 1, insulin-dependent. 2. Recurrent DKA. 3. Atrial fibrillation earlier this year, on suppressive therapy with no recurrence. 4. Hypothyroidism. 5. Hypercholesterolemia. 6. Possible previous stroke according to the patient's daughter on previous admissions. PAST SURGICAL HISTORY: Lumpectomy in 1998 on the left breast. ALLERGIES: MORPHINE CAUSES NAUSEA AND VOMITING. SOCIAL HISTORY: No tobacco or alcohol use. The patient is . She denies any illicit drug use. She says she is a full code and her surrogate decision maker is her , Anthony Yanez and her daughter. FAMILY HISTORY: Significant for coronary artery disease in her brother who at the age of 39 with heart attack and diabetes mellitus in her mother and her father was an alcoholic. CURRENT MEDICATIONS: 1. Levemir 10 units subcutaneous daily. 2. Eliquis 5 mg twice a day. 3. Florastor 250 mg daily. 4. Flecainide 50 mg twice a day. 5. Vitamin D3 of 400 units daily. 6. Tylenol 650 mg twice a day as needed. 7. Zoloft 25 mg daily. 8. Insulin with sliding scale as needed with meals. REVIEW OF SYSTEMS: CONSTITUTIONAL: No fevers. She did have some chills earlier in the morning. EYES: No double vision or blurred vision. ENT: She has a little bit of nasal congestion. No sore throat. CARDIOVASCULAR: No chest pain. No palpitations or racing heart. PULMONARY: See HPI. Mild cough and chest congestion and some tachypnea that is resolved with fluids and insulin. No shortness of breath currently. GASTROINTESTINAL: No abdominal pain. Mild nausea that is improving. No vomiting. No diarrhea or constipation. GENITOURINARY: Polyuria with minimal discomfort with urination earlier in the week, but none now. MUSCULOSKELETAL: No muscle aches or joint pain. SKIN: No rashes or lesions she has noted. NEUROLOGIC: No numbness, tingling, or focal weakness. Just generalized weakness. PSYCHIATRIC: She reports some depression and was started on antidepressants at her last admission. No changes there. PHYSICAL EXAMINATION: VITAL SIGNS: Blood pressure 104/48, pulse 71, respirations 24, O2 saturation 99% on room air, temperature 98.4. GENERAL: This is a well-developed, well-nourished white female, in no acute distress. Sleeping comfortably in the bed until I came in the room. HEENT: Pupils are equal, round, and reactive to light. Oropharynx is clear without lesions, erythema, or exudate. She does have moist mucous membranes. NECK: Supple. No lymphadenopathy. No thyroid nodules or enlargement. HEART: Regular rate and rhythm. No murmurs, rubs, or gallops. LUNGS: Clear to auscultation bilaterally. No wheezes, crackles, or rhonchi. ABDOMEN: Soft, nontender to palpation. Normoactive bowel sounds. No hepatosplenomegaly or other masses. EXTREMITIES: No clubbing, cyanosis, or edema. SKIN: No rashes or lesions noted. NEUROLOGIC: Cranial nerves intact and equal bilaterally. No facial droop. Intact strength and sensation in all extremities. PSYCHIATRIC: Alert and oriented x3. Normal mood and affect. LABORATORY DATA: White blood cell count 17.5, which is not typical as far as being elevated during her DKA episodes; hemoglobin 11.4; hematocrit 35.3; platelet count 289; bandemia of 24%. Basic metabolic panel is notable for a sodium of 128, chloride of 96, carbon dioxide of less than 8, anion gap of 2 and need to recalculate, BUN of 21, creatinine of 1.98, glucose of 605, calcium of 8.9, glucose is now down to 329. Beta-hydroxybutyrate was elevated at 12.35. IMAGING STUDIES: Chest x-ray, I did review the chest x-ray done in the emergency room along with the radiologist's report. There is some minimal stable appearing chronic changes with hyperinflation, but no evidence of acute infiltrate or infectious process. EKG, I did review the EKG done in the emergency room. It does show normal sinus rhythm with some possible left atrial enlargement. No significant arrhythmias. No significant ST-segment changes or other abnormalities. ASSESSMENT: 1. Recurrent diabetic ketoacidosis. We will continue IV fluids and IV insulin as per DKA protocol and switch over to sugar-containing fluids and add blood sugar 250 and we will attempt to start her on a diet when her nausea improves. Once she is able to tolerate food, we can then give her long-acting insulin and wean her off the drip. 2. Leukocytosis concerning for the possibility of infection. She has a little bit of cough. Her chest x-ray is clear and her exam is normal at this time. She did have some polyuria most likely due to her elevated blood sugar, but there remains possibility of infections. She also reports some pain earlier last week with urination. We will get urinalysis, urine cultures as necessary and then we will also go ahead and draw a blood culture x2. 3. Paroxysmal atrial fibrillation. We will continue the patient's flecainide. We will also continue the patient's Eliquis. 4. Hypothyroidism. Resume the patient's levothyroxine. 5. Depression. We will continue the patient's sertraline. 6. Gastrointestinal prophylaxis. Put the patient on famotidine twice a day IV for right now that she is taking p.o. 7. Deep venous thrombosis prophylaxis. The patient is already on Eliquis. 8. Code status: The patient is a full code. Should she be incapacitated, her Anthony Yanez would be her medical decision maker. Job ID: [id number]
[2019-11-07] MEDS: D5 1/2 NS w/20 mEq KCL 1,000 ML IV PRN (21:21)
[2019-11-07] MEDS: Flecainide 50 MG TAB PO SCH (21:22)
[2019-11-07] MEDS: Apixaban 5 MG TAB PO SCH (21:22)
[2019-11-07 22:02] VITALS: BMI 21.1
[2019-11-07] MEDS: Acetaminophen 325 MG TAB PO PRN (22:04)
[2019-11-07 22:09] LABS: Anion Gap 20 mmol/L (10-20); BUN (Urea Nitrogen) 20 mg/dL (9.8-20.1); Calc. Creatinine Clearance 39 mL/min (70-130); Calcium 8.3 mg/dL (7.8-10.44); Carbon Dioxide 10 mmol/L (23-31); Chloride 106 mmol/L (98-107); Estimated GFR-MDRD 37; Glucose 263 mg/dL (80-115); Sodium 132 mmol/L (136-145)
[2019-11-08] MEDS: D5 1/2 NS w/20 mEq KCL 1,000 ML IV PRN ×3 (02:25→10:09)
[2019-11-08 03:43] LABS: #Lymphocytes 1.3 thou/uL (1.20-3.40); #Monocytes 1.1 thou/uL (0.11-0.59); #Neutrophils 11.5 thou/uL (1.40-6.50); %Basophils 0.2 % (0.0-1.0); %Eosinophils 0.1 % (0.0-10.0); %Lymphocytes 9.6 % (21.0-51.0); %Monocytes 7.9 % (0.0-10.0); %Neutrophils 82.1 % (42.0-75.0); Hemoglobin 8.8 g/dL (12.0-16.0); Mean Corpuscular HGB CONC 33.3 g/dL (32.0-36.0); Mean Corpuscular Hemoglobin 32.3 pg (27.0-31.0); Mean Corpuscular Volume 96.9 fL (78.0-98.0); Mean Platelet Volume 7.9 fL (7.4-10.4); Platelet Count 246 thou/uL (130-400); RBC Distribution Width 12.4 % (11.5-14.5); Red Blood Cell (RBC) Count 2.71 mill/uL (4.20-5.40)
[2019-11-08 03:51] LABS: Anion Gap 14 mmol/L (10-20); BUN (Urea Nitrogen) 20 mg/dL (9.8-20.1); Calc. Creatinine Clearance 41 mL/min (70-130); Carbon Dioxide 13 mmol/L (23-31); Chloride 112 mmol/L (98-107); Estimated GFR-MDRD 40; Glucose 195 mg/dL (80-115); Potassium 3.7 mmol/L (3.5-5.1); Sodium 135 mmol/L (136-145)
[2019-11-08] MEDS: Levothyroxine Sodium 100 MCG TAB PO SCH (05:03)
--- NOTE | 2019-11-08 08:50 | PDOC.HOSPP ---
- Subjective Encounter Date: 11/08/19 Encounter Time: 11:15 Subjective: Patient very sleepy this AM. Still on insulin drip. Eating some breakfast and given dose of home AM insulin. - Objective Vital Signs & Weight: Vital Signs (12 hours) Temp 11/08/19 07:09 98.8 F 11/08/19 03:39 97.8 F 11/07/19 22:02 98.2 F 11/07/19 21:34 98.2 F Weight Weight 135 lb Most Recent Monitor Data Heart Rate from ECG 77 NIBP 99/47 NIBP BP-Mean 64 Respiration from ECG 25 SpO2 99 I&O: 11/07/19 11/08/19 11/09/19 06:59 06:59 06:59 Intake Total 1811.6 Balance 1811.6 Result Diagrams: 11/08/19 03:19 11/08/19 03:19 Additional Labs: Accuchecks 11/08/19 11/08/19 11/08/19 08:32 07:21 06:04 POC Glucose 144 H 136 H 134 H 11/08/19 11/08/19 11/08/19 05:05 04:17 03:08 POC Glucose 132 H 154 H 191 H 11/08/19 11/08/19 11/08/19 02:08 01:09 00:08 POC Glucose 207 H 248 H 311 H 11/07/19 11/07/19 11/07/19 23:12 21:23 19:41 POC Glucose 281 H 226 H 140 H 11/07/19 11/07/19 11/07/19 18:11 17:14 16:19 POC Glucose 128 H 163 H 212 H 11/07/19 11/07/19 11/07/19 14:48 13:46 12:50 POC Glucose 278 H 329 H 416 H 11/07/19 11/07/19 11:46 10:38 POC Glucose 476 H 528 H Hospitalist ROS - Review of Systems Constitutional: denies: fever, chills Respiratory: denies: cough, shortness of breath Cardiovascular: denies: chest pain, palpitations Gastrointestinal: denies: nausea, vomiting, abdominal pain - Medication Medications: Active Medications Generic Name Dose Route Start Last Admin Trade Name Freq PRN Reason Stop Dose Admin Acetaminophen 650 mg 11/07/19 14:36 11/07/19 22:04 Tylenol PO 650 mg BIDPRN PRN Administration Pain Apixaban 5 mg 11/07/19 21:00 11/07/19 21:22 Eliquis PO 5 mg BID JANICE Administration Flecainide Acetate 50 mg 11/07/19 21:00 11/07/19 21:22 Tambocor PO 50 mg BID JANICE Administration Potassium Chloride/Dextrose/Sod Cl 1,000 mls @ 250 mls/hr 11/07/19 13:34 05:58 D5 1/2 Ns W/20 Meq Kcl IV 1,000 mls .Q4H PRN Administration Step 4 of DKA Protocol Protocol Insulin Human Regular 100 101 mls @ 0 mls/hr 11/07/19 13:34 11/08/19 06:49 units/ Sodium Chloride IVPB 101 mls INF JANICE Administration Protocol Titrate Potassium Chloride/Sodium Chloride 1,000 mls @ 500 mls/hr 11/07/19 13:34 16:38 Ns 0.9% W/ 20 Meq Kcl IV 1,000 mls .Q2H PRN Administration Step 2 of DKA Protocol Protocol Levothyroxine Sodium 100 mcg 11/08/19 06:00 11/08/19 05:03 Synthroid PO 100 mcg 0600 JANICE Administration Ondansetron HCl 4 mg 11/07/19 13:34 11/07/19 21:22 Zofran IVP 4 mg Q6H PRN Administration Nausea/Vomiting - Exam General Appearance: NAD ENT: normocephalic atraumatic, moist mucosa Heart: RRR, no murmur, no gallops, no rubs Respiratory: CTAB, no wheezes, no rales, no ronchi Gastrointestinal: soft, non-tender, non-distended, normal bowel sounds, no palpable masses Musculoskeletal: normal tone, normal strength Psychiatric: normal affect, normal behavior, A&O x 3 Hosp A/P (1) DKA (diabetic ketoacidoses) Code(s): E11.10 - TYPE 2 DIABETES MELLITUS WITH KETOACIDOSIS WITHOUT COMA Status: Acute Qualifiers: Diabetes mellitus type: type 1 Plan: improved, blood sugars normalized, will restart Levemir at 15units instead of 10. (2) Acute kidney failure Status: Acute Plan: improving with IV fluids (3) Anemia Code(s): D64.9 - ANEMIA, UNSPECIFIED Status: Chronic Qualifiers: Plan: dropped back to baseline of 8.8 with volume resuscitation (4) Dyslipidemia Code(s): E78.5 - HYPERLIPIDEMIA, UNSPECIFIED Status: Chronic (5) Hypertension Code(s): I10 - ESSENTIAL (PRIMARY) HYPERTENSION Status: Chronic Qualifiers: (6) Hypothyroidism Code(s): E03.9 - HYPOTHYROIDISM, UNSPECIFIED Status: Chronic Qualifiers: (7) Paroxysmal atrial fibrillation Code(s): I48.0 - PAROXYSMAL ATRIAL FIBRILLATION Status: Chronic Plan: on suppressive therapy and Elliquis - Plan out of bed/ambulate
[2019-11-08] MEDS: Flecainide 50 MG TAB PO SCH ×2 (09:19→20:44)
[2019-11-08] MEDS: Cholecalciferol (Vitamin D3) 400 UNITS TAB PO SCH (09:19)
[2019-11-08] MEDS: Saccharomyces boulardii 250 MG CAP PO SCH (09:19)
[2019-11-08] MEDS: Apixaban 5 MG TAB PO SCH ×2 (09:19→20:44)
[2019-11-08] MEDS: Insulin Glargine 15 UNITS in Pre-Filled Syringe 1 EACH SC SCH (10:19)
[2019-11-08] MEDS ORDERED: Dextrose 5% in Water 1,000 ML IV PRN (14:14)
[2019-11-08] MEDS ORDERED: Dextrose 50% Abboject 50 ML SYRINGE IVP PRN (14:14)
[2019-11-08] MEDS: Guaifenesin DM 100-10/5 ML UDCUP PO PRN ×2 (15:20→22:49)
[2019-11-08] MEDS: HumaLOG 300 UNITS/3 ML VIAL SC PRN (17:04)
[2019-11-08] MEDS: Famotidine/PF 20 mg/2ml Vial SLOW IVP SCH (20:44)
[2019-11-08] MEDS: Acetaminophen 325 MG TAB PO PRN (20:55)
[2019-11-09 04:04] LABS: Anion Gap 12 mmol/L (10-20); BUN (Urea Nitrogen) 14 mg/dL (9.8-20.1); Calc. Creatinine Clearance 52 mL/min (70-130); Calcium 8.1 mg/dL (7.8-10.44); Carbon Dioxide 14 mmol/L (23-31); Chloride 109 mmol/L (98-107); Estimated GFR-MDRD 52; Glucose 223 mg/dL (80-115); Potassium 3.7 mmol/L (3.5-5.1); Sodium 131 mmol/L (136-145)
[2019-11-09] MEDS: Levothyroxine Sodium 100 MCG TAB PO SCH (06:25)
[2019-11-09] MEDS: HumaLOG 300 UNITS/3 ML VIAL SC PRN ×3 (06:25→18:04)
[2019-11-09] MEDS: Flecainide 50 MG TAB PO SCH ×2 (09:38→20:40)
[2019-11-09] MEDS: Apixaban 5 MG TAB PO SCH ×2 (09:39→20:40)
[2019-11-09] MEDS: Saccharomyces boulardii 250 MG CAP PO SCH (09:39)
[2019-11-09] MEDS: Insulin Glargine 15 UNITS in Pre-Filled Syringe 1 EACH SC SCH (09:40)
[2019-11-09] MEDS: Cholecalciferol (Vitamin D3) 400 UNITS TAB PO SCH (09:40)
[2019-11-09] MEDS: Guaifenesin DM 100-10/5 ML UDCUP PO PRN (09:55)
[2019-11-09] MEDS: Acetaminophen 325 MG TAB PO PRN (10:01)
--- NOTE | 2019-11-09 11:22 | PDOC.HOSPP ---
- Subjective Encounter Date: 11/09/19 Encounter Time: 11:00 Subjective: Patient feeling better, still weak and hasn't gotten out of bed since admission. Going to try and ambulate in a few minutes. - Objective Vital Signs & Weight: Vital Signs (12 hours) Temp Pulse Ox 11/09/19 09:58 100.2 F H 11/09/19 08:00 99 11/09/19 07:39 98.4 F 11/09/19 03:10 98.8 F Weight Weight 135 lb Most Recent Monitor Data Heart Rate from ECG 81 NIBP 132/52 NIBP BP-Mean 78 Respiration from ECG 24 SpO2 100 I&O: 11/08/19 11/09/19 11/10/19 06:59 06:59 06:59 Intake Total 1811.6 2069.8 Output Total 850 Balance 1811.6 1219.8 Result Diagrams: 11/08/19 03:19 11/09/19 03:21 Additional Labs: Accuchecks 11/09/19 11/09/19 11/08/19 10:47 06:27 20:04 POC Glucose 240 H 225 H 172 H 11/08/19 11/08/19 11/08/19 16:45 14:12 13:05 POC Glucose 234 H 172 H 210 H 11/08/19 12:06 POC Glucose 216 H Hospitalist ROS - Review of Systems Respiratory: reports: cough. denies: dry, shortness of breath, SOB with excertion Cardiovascular: denies: chest pain, palpitations, orthopnea Gastrointestinal: denies: nausea, vomiting, abdominal pain, diarrhea, constipation Neurological: reports: weakness - Medication Medications: Active Medications Generic Name Dose Route Start Last Admin Trade Name Freq PRN Reason Stop Dose Admin Acetaminophen 650 mg 11/07/19 14:36 11/09/19 10:01 Tylenol PO 650 mg BIDPRN PRN Administration Pain Apixaban 5 mg 11/07/19 21:00 11/09/19 09:39 Eliquis PO 5 mg BID JANICE Administration Cholecalciferol 400 units 11/08/19 09:00 11/09/19 09:40 Vitamin D PO 400 units DAILY JANICE Administration Famotidine 20 mg 11/08/19 21:00 11/08/19 20:44 Pepcid SLOW IVP 20 mg QPM JANICE Administration Flecainide Acetate 50 mg 11/07/19 21:00 11/09/19 09:38 Tambocor PO 50 mg BID JANICE Administration Guaifenesin/Dextromethorphan 15 ml 11/08/19 13:54 11/09/19 09:55 Robitussin Dm PO 15 ml Q4H PRN Administration Cough Potassium Chloride/Dextrose/Sod Cl 1,000 mls @ 250 mls/hr 11/07/19 13:34 10:09 D5 1/2 Ns W/20 Meq Kcl IV 1,000 mls .Q4H PRN Administration Step 4 of DKA Protocol Protocol Potassium Chloride/Sodium Chloride 1,000 mls @ 500 mls/hr 11/07/19 13:34 16:38 Ns 0.9% W/ 20 Meq Kcl IV 1,000 mls .Q2H PRN Administration Step 2 of DKA Protocol Protocol Insulin Glargine 15 units/ 0.15 mls @ 0 mls/hr 11/08/19 09:00 11/09/19 09:40 Miscellaneous Medication SC 0.15 mls QAM JANICE Administration Insulin Human Lispro 0 units 11/08/19 14:14 11/09/19 06:25 Humalog SC 4 unit .MODERATE SLIDING SC PRN Administration MODERATE SLIDING SCALE Protocol Levothyroxine Sodium 100 mcg 11/08/19 06:00 11/09/19 06:25 Synthroid PO 100 mcg 0600 JANICE Administration Ondansetron HCl 4 mg 11/07/19 13:34 11/07/19 21:22 Zofran IVP 4 mg Q6H PRN Administration Nausea/Vomiting Saccharomyces Boulardii 250 mg 11/08/19 09:00 11/09/19 09:39 Florastor PO 250 mg DAILY JANICE Administration Sertraline HCl 25 mg 11/08/19 09:00 11/09/19 09:39 Zoloft PO 25 mg DAILY JANICE Administration - Exam General Appearance: NAD Eye: anicteric sclera ENT: moist mucosa Neck: supple, no JVD Heart: RRR, no murmur, no gallops, no rubs Respiratory: CTAB, no wheezes, no rales, no ronchi Gastrointestinal: soft, non-tender, non-distended, normal bowel sounds, no palpable masses Extremities: no cyanosis, no clubbing, no edema Psychiatric: normal affect, normal behavior, A&O x 3 Hosp A/P (1) DKA (diabetic ketoacidoses) Code(s): E11.10 - TYPE 2 DIABETES MELLITUS WITH KETOACIDOSIS WITHOUT COMA Status: Resolved Qualifiers: Diabetes mellitus type: type 1 Plan: Patient with blood sugars in 200s on 15 units Lantus and about 8 units short acting with meals, no low blood sugar episodes. Setting up with [facility] program and then can go home. (2) Acute kidney failure Status: Resolved (3) Anemia Code(s): D64.9 - ANEMIA, UNSPECIFIED Status: Chronic Qualifiers: (4) Dyslipidemia Code(s): E78.5 - HYPERLIPIDEMIA, UNSPECIFIED Status: Chronic (5) Hypertension Code(s): I10 - ESSENTIAL (PRIMARY) HYPERTENSION Status: Chronic Qualifiers: (6) Hypothyroidism Code(s): E03.9 - HYPOTHYROIDISM, UNSPECIFIED Status: Chronic Qualifiers: (7) Paroxysmal atrial fibrillation Code(s): I48.0 - PAROXYSMAL ATRIAL FIBRILLATION Status: Chronic - Plan PT/OT Will have patient start ambulating. May tolerate slightly higher dose of insulin. Likely home tomorrow
[2019-11-09] MEDS: Famotidine/PF 20 mg/2ml Vial SLOW IVP SCH (20:40)
[2019-11-10 04:06] VITALS: BP 130/65
[2019-11-10 04:22] LABS: Anion Gap 10 mmol/L (10-20); BUN (Urea Nitrogen) 11 mg/dL (9.8-20.1); Calc. Creatinine Clearance 61 mL/min (70-130); Calcium 8.4 mg/dL (7.8-10.44); Carbon Dioxide 17 mmol/L (23-31); Chloride 107 mmol/L (98-107); Estimated GFR-MDRD 62; Glucose 177 mg/dL (80-115); Potassium 3.2 mmol/L (3.5-5.1); Sodium 131 mmol/L (136-145)
[2019-11-10] MEDS: Acetaminophen 325 MG TAB PO PRN (04:26)
[2019-11-10] MEDS: Levothyroxine Sodium 100 MCG TAB PO SCH (05:54)
[2019-11-10] MEDS: HumaLOG 300 UNITS/3 ML VIAL SC PRN ×2 (05:59→16:41)
[2019-11-10] MEDS: Insulin Glargine 15 UNITS in Pre-Filled Syringe 1 EACH SC SCH (09:36)
[2019-11-10] MEDS: Cholecalciferol (Vitamin D3) 400 UNITS TAB PO SCH (09:36)
[2019-11-10] MEDS: Flecainide 50 MG TAB PO SCH (09:37)
[2019-11-10] MEDS: Apixaban 5 MG TAB PO SCH (09:37)
[2019-11-10] MEDS: Saccharomyces boulardii 250 MG CAP PO SCH (09:37)
--- NOTE | 2019-11-10 14:21 | PDOC.HOSPP ---
- Subjective Encounter Date: 11/10/19 Encounter Time: 13:30 Subjective: Patient feeling better. Still a bit unsteady on her feet with turns only per PT. Plan to have her ambulate again at 1500. - Objective Vital Signs & Weight: Vital Signs (12 hours) Temp Pulse Resp BP Pulse Ox 11/10/19 11:30 98.1 F 11/10/19 11:00 98.1 F 11/10/19 08:11 98.4 F 11/10/19 08:00 98.4 F 98 11/10/19 05:52 99.6 F 11/10/19 03:54 99.7 F H 11/10/19 03:00 100.4 F H 84 20 130/65 100 Weight Weight 135 lb Most Recent Monitor Data Heart Rate from ECG 75 NIBP 115/78 NIBP BP-Mean 90 Respiration from ECG 11 SpO2 100 I&O: 11/09/19 11/10/19 11/11/19 06:59 06:59 06:59 Intake Total 2069.8 1110 240 Output Total 850 890 Balance 1219.8 220 240 Result Diagrams: 11/08/19 03:19 11/10/19 03:24 Additional Labs: Accuchecks 11/10/19 11/10/19 11/09/19 10:46 05:56 20:11 POC Glucose 158 H 169 H 187 H 11/09/19 16:49 POC Glucose 228 H Hospitalist ROS - Review of Systems Constitutional: denies: fever, chills Respiratory: denies: cough, dry, shortness of breath Cardiovascular: denies: chest pain, palpitations, orthopnea Gastrointestinal: denies: nausea, vomiting, abdominal pain Genitourinary: denies: dysuria, hematuria Neurological: denies: weakness, numbness - Medication Medications: Active Medications Generic Name Dose Route Start Last Admin Trade Name Freq PRN Reason Stop Dose Admin Acetaminophen 650 mg 11/07/19 14:36 11/10/19 04:26 Tylenol PO 650 mg BIDPRN PRN Administration Pain Apixaban 5 mg 11/07/19 21:00 11/10/19 09:37 Eliquis PO 5 mg BID JANICE Administration Cholecalciferol 400 units 11/08/19 09:00 11/10/19 09:36 Vitamin D PO 400 units DAILY JANICE Administration Famotidine 20 mg 11/08/19 21:00 11/09/19 20:40 Pepcid SLOW IVP 20 mg QPM JANICE Administration Flecainide Acetate 50 mg 11/07/19 21:00 11/10/19 09:37 Tambocor PO 50 mg BID JANICE Administration Guaifenesin/Dextromethorphan 15 ml 11/08/19 13:54 11/09/19 09:55 Robitussin Dm PO 15 ml Q4H PRN Administration Cough Potassium Chloride/Dextrose/Sod Cl 1,000 mls @ 250 mls/hr 11/07/19 13:34 10:09 D5 1/2 Ns W/20 Meq Kcl IV 1,000 mls .Q4H PRN Administration Step 4 of DKA Protocol Protocol Potassium Chloride/Sodium Chloride 1,000 mls @ 500 mls/hr 11/07/19 13:34 16:38 Ns 0.9% W/ 20 Meq Kcl IV 1,000 mls .Q2H PRN Administration Step 2 of DKA Protocol Protocol Insulin Glargine 15 units/ 0.15 mls @ 0 mls/hr 11/08/19 09:00 11/10/19 09:36 Miscellaneous Medication SC 0.15 mls QAM JANICE Administration Insulin Human Lispro 0 units 11/08/19 14:14 11/10/19 05:59 Humalog SC 2 unit .MODERATE SLIDING SC PRN Administration MODERATE SLIDING SCALE Protocol Levothyroxine Sodium 100 mcg 11/08/19 06:00 11/10/19 05:54 Synthroid PO 100 mcg 0600 JANICE Administration Ondansetron HCl 4 mg 11/07/19 13:34 11/07/19 21:22 Zofran IVP 4 mg Q6H PRN Administration Nausea/Vomiting Potassium Chloride 40 meq 11/07/19 14:44 11/10/19 09:36 K-Dur PO 40 meq ASDIR PRN Administration FOR SERUM K+ 2.5 - 3.5 Saccharomyces Boulardii 250 mg 11/08/19 09:00 11/10/19 09:37 Florastor PO 250 mg DAILY JANICE Administration Sertraline HCl 25 mg 11/08/19 09:00 11/10/19 09:37 Zoloft PO 25 mg DAILY JANICE Administration - Exam General Appearance: NAD Eye: anicteric sclera ENT: moist mucosa Heart: RRR, no murmur, no gallops, no rubs Respiratory: CTAB, no wheezes, no rales, no ronchi Gastrointestinal: soft, non-tender, non-distended, normal bowel sounds Musculoskeletal: normal tone, normal strength Psychiatric: normal affect, normal behavior, A&O x 3 Hosp A/P (1) DKA (diabetic ketoacidoses) Code(s): E11.10 - TYPE 2 DIABETES MELLITUS WITH KETOACIDOSIS WITHOUT COMA Status: Resolved Qualifiers: Diabetes mellitus type: type 1 (2) Acute kidney failure Status: Resolved (3) Anemia Code(s): D64.9 - ANEMIA, UNSPECIFIED Status: Chronic Qualifiers: (4) Dyslipidemia Code(s): E78.5 - HYPERLIPIDEMIA, UNSPECIFIED Status: Chronic (5) Hypertension Code(s): I10 - ESSENTIAL (PRIMARY) HYPERTENSION Status: Chronic Qualifiers: (6) Hypothyroidism Code(s): E03.9 - HYPOTHYROIDISM, UNSPECIFIED Status: Chronic Qualifiers: (7) Paroxysmal atrial fibrillation Code(s): I48.0 - PAROXYSMAL ATRIAL FIBRILLATION Status: Chronic - Plan PT/OT After PT ambulates again can go home with home PT/OT, has daughter to help her get around at home, may need a rolling walker
[2019-11-10 16:01] VITALS: TEMP 98.6
[2019-11-10 16:02] LABS: Hemoglobin 9.9 g/dL (12.0-16.0); Platelet Count 319 thou/uL (130-400)
[2019-11-10] MEDS ORDERED: Cefdinir 300 MG CAP PO SCH (21:00)
--- NOTE | 2019-11-11 11:51 | DIS ---
DATE OF ADMISSION: 11/07/2019 DATE OF DISCHARGE: 11/10/2019 PRIMARY CARE PHYSICIAN: Dr. Tiffanie Chiu. REASON FOR ADMISSION: Diabetic ketoacidosis. DIAGNOSES AT DISCHARGE: 1. Diabetic ketoacidosis, resolved. 2. Diabetes mellitus type 1, insulin dependent. 3. Acute kidney failure, resolved. 4. Dyslipidemia. 5. Hypertension. 6. Chronic anemia. 7. Paroxysmal atrial fibrillation. 8. Urinary tract infection. PROCEDURES: None. CONSULTATIONS: None. SUMMARY OF HOSPITAL COURSE: This is a 64-year-old white female with a known history of insulin-dependent diabetes mellitus type 1 with multiple admissions for DKA over the last year. She was seen just last week for DKA after not feeling very well and she skipped the dose of her insulin. She was treated back on 10 units of Levemir. She had previously been tried on 25 units of 70/30 twice a day until August of this year, was noted to have multiple hypoglycemic episodes in the hospital and eventually decreased down to 10 units of Levemir daily. They tried 10 twice a day couple of hospitalizations ago and it still has low blood sugars. The patient went back home. She states that she was injecting her insulin regularly; however, she started getting nauseated, breathing very shallowly the night before admission, so she came into the hospital and was found to be back in DKA. Insulin drip and fluids were started. She also had acute renal failure with fluids and insulin drip per DKA and renal failure resolved. She was fairly weak couple of days and eventually got up and was little unsteady on her feet. This improved over the next day of the hospitalization, so that she was up and ambulating without assistance by the day of discharge. The patient was found to have a mild urinary tract infection, was started on Omnicef. She is being discharged to home with Home Health for physical therapy and occupational therapy. DISCHARGE MANAGEMENT: Discharged home. FOLLOWUP: Follow up with Dr. Chiu on the at 10:15 a.m. She has also been referred for the TIPP program to try and prevent recurrent hospitalizations with DKA. ACTIVITY: As tolerated. DIET: Diabetic diet. MEDICATIONS: 1. Increase Levemir to 15 units subcu each morning. 2. Eliquis 5 mg twice a day. 3. Omnicef 300 mg twice a day for 10 days. 4. Vitamin D daily. 5. Tambocor 50 mg twice a day. 6. Levothyroxine 100 mcg daily. 7. Florastor 250 mg daily. 8. Sertraline 25 mg daily. Job ID: [id number]
== END 2019-11-10 17:24 | disposition home health service (06) | DRG 638 ==
LOC: ERS 07:12 → ERHOLD 09:34 → IMCU/EMU 19:32
PROVIDERS: ADMIT Emergency Medicine; ATTEND Emergency Medicine
DX: E10.10 Type 1 diabetes mellitus with ketoacidosis without coma (principal); N17.9 Acute kidney failure, unspecified; N39.0 Urinary tract infection, site not specified; Z79.4 Long term (current) use of insulin; E03.9 Hypothyroidism, unspecified; Z98.890 Other specified postprocedural states; Z79.899 Other long term (current) drug therapy; D72.829 Elevated white blood cell count, unspecified; I48.0 Paroxysmal atrial fibrillation; E78.5 Hyperlipidemia, unspecified; F32.9 Major depressive disorder, single episode, unspecified
CPT/HCPCS: 36415; 36416; 71045; 80048; 80053; 81003; 81015; 82010; 82553; 84484; 85014; 85018; 85025; 85049; 87077; 87086; 87186; 93005; 96361; 96365; 96366; J1815; J2405; J3480; J3490; S0028

== ENCOUNTER 2019-11-20 19:23 | Inpatient (IN) | payer SELFPAY ==
[2019-11-20 20:05] LABS: #Eosinphils 0.1 thou/uL (0.0-0.7); #Lymphocytes 1.7 thou/uL (1.20-3.40); #Monocytes 0.8 thou/uL (0.11-0.59); #Neutrophils 12.6 thou/uL (1.40-6.50); %Basophils 0.3 % (0.0-1.0); %Eosinophils 0.3 % (0.0-10.0); %Monocytes 5.1 % (0.0-10.0); %Neutrophils 83.4 % (42.0-75.0); Hemoglobin 10.4 g/dL (12.0-16.0); Mean Corpuscular HGB CONC 31.8 g/dL (32.0-36.0); Mean Corpuscular Hemoglobin 31.2 pg (27.0-31.0); Mean Corpuscular Volume 98.1 fL (78.0-98.0); Mean Platelet Volume 7.7 fL (7.4-10.4); Platelet Count 517 thou/uL (130-400); RBC Distribution Width 14.6 % (11.5-14.5); Red Blood Cell (RBC) Count 3.34 mill/uL (4.20-5.40); White Blood Cell (WBC) Count 15.1 thou/uL (4.8-10.8)
[2019-11-20 20:14] LABS: Base Excess-Venous -20.4 mmol/L (-2.0 to 3.0); Bicarbonate (HCO3v) 7.1 mmol/L (22.0-28.0); CO2 Tension (PvCO2) 21.4 mmHg (40.0-50.0); Calcium, Ionized 1.12 mmol/L (See Comments:); Chloride 98 mmol/L (98-107); Hemoglobin - Calc 10.8 g/dL (12.0-16.0); Potassium 3.6 mmol/L (3.5-5.1); Sodium 123 mmol/L (138-145); T. Carbon Dioxide 7.7 mmol/L (22.0-28.0); vO2 Saturation-calc 86.4 % (60.0-85.0)
[2019-11-20] MEDS ORDERED: Insulin Regular 300 UNITS/3 ML VIAL ONE (20:22)
[2019-11-20 20:26] LABS: ALT (SGPT) 12 U/L (8-55); AST (SGOT) 13 U/L (5-34); Alkaline Phosphatase 163 U/L (40-110); BUN (Urea Nitrogen) 21 mg/dL (9.8-20.1); Bilirubin, Total 0.4 mg/dL (0.2-1.2); Calc. Creatinine Clearance 0 mL/min (70-130); Calcium 8.5 mg/dL (7.8-10.44); Chloride 96 mmol/L (98-107); Estimated GFR-MDRD 27; Globulin 3.6 g/dL (2.4-3.5); Glucose 379 mg/dL (80-115); Potassium 4.2 mmol/L (3.5-5.1); Protein, Total 6.6 g/dL (6.0-8.3); Sodium 125 mmol/L (136-145)
[2019-11-20] MEDS ORDERED: Insulin Regular 100 units/100 ml in NS IVPB SCH (20:30)
[2019-11-20 20:32] LABS: Carbon Dioxide Less than 8 mmol/L (23-31)
[2019-11-20 21:15] LABS: Bacteria/HPF 2+ HPF (None Seen); Bilirubin Negative (Negative); Blood, Urine Negative (Negative); Clarity Clear (Clear); Glucose, Urine (Dipstick) >=1000 mg/dL (Negative); Leukocyte 25 Leu/uL (Negative); Nitrite Negative (Negative); Protein, Urine (Dipstick) Negative (Neg-Trace); RBC/HPF 0-3 HPF (0-3); Renal Epithelial 0-3 HPF (None Seen); Squamous Epithelial 0-3 HPF (0-3); Urobilinogen Normal mg/dL (Less than 2)
[2019-11-20] MEDS ORDERED: cefTRIAXone\\ROCEPHIN 1 GM VIAL ONE (21:52)
[2019-11-20] MEDS ORDERED: NS 0.9% w/ 20 MEQ KCL 1,000 ML IV SCH (22:45)
[2019-11-20] MEDS ORDERED: HUMULIN R 100 UNITS in Sodium Chloride 0.9% 100 ML IVPB SCH (22:46)
[2019-11-20] MEDS ORDERED: Guaifenesin DM 100-10/5 ML UDCUP PO PRN (22:46)
[2019-11-20] MEDS ORDERED: D5 1/2 NS w/20 mEq KCL 1,000 ML IV PRN (22:46)
[2019-11-20] MEDS ORDERED: Bisacodyl 10 MG SUPP PR PRN (22:46)
[2019-11-20] MEDS ORDERED: CCU Electrolyte Replacement 1 EACH IVPB ONE (22:46)
[2019-11-20] MEDS ORDERED: Ondansetron PF 4 MG/2 ML Vial IVP PRN (22:46)
[2019-11-20] MEDS ORDERED: Senokot S 8.6-50 MG TAB PO PRN (22:46)
[2019-11-20] MEDS ORDERED: Sodium Chloride 0.9% 1,000 ML IV PRN ×4 (22:46)
[2019-11-20] MEDS ORDERED: Dextrose 5 %-0.45 % NaCl 1,000 ML IV PRN (22:46)
[2019-11-20] MEDS ORDERED: NS 0.9% w/ 20 MEQ KCL 1,000 ML IV PRN ×2 (22:46)
[2019-11-20] MEDS ORDERED: Acetaminophen 325 MG TAB PO PRN (22:46)
[2019-11-20] MEDS ORDERED: Magnesium Oxide 400 MG TAB PO PRN ×2 (22:58)
[2019-11-20] MEDS ORDERED: Potassium Phosphate 15 MMOL in Sodium Chloride 0.9% 250 ML 250 ML IV PRN (22:58)
[2019-11-20] MEDS ORDERED: Potassium Chloride 40 MEQ in Premix Bag 1 BAG IVPB PRN (22:58)
[2019-11-20] MEDS ORDERED: Potassium Chloride 20 MEQ TAB PO PRN (22:58)
[2019-11-20] MEDS ORDERED: Potassium Phosphate 12 MMOL in Sodium Chloride 0.9% 250 ML 250 ML IV PRN (22:58)
[2019-11-20] MEDS ORDERED: PHOS-NAK 1 PKT PACK PO PRN ×2 (22:58)
[2019-11-20] MEDS ORDERED: CCU ELECTROLYTE REPLACEMENT PROTOCOL FS PRN (22:58)
[2019-11-20] MEDS ORDERED: Potassium Phosphate 9 MMOL in Sodium Chloride 0.9% 100 ML IVPB PRN (22:58)
[2019-11-20] MEDS ORDERED: Magnesium 2 GM/50 ML 2 GM in Premix Bag 1 BAG IVPB PRN (22:58)
[2019-11-20] MEDS ORDERED: Potassium Chloride 40 MEQ in Sodium Chloride 0.9% 250 ML 250 ML IVPB PRN (22:58)
[2019-11-20 23:29] LABS: Anion Gap 21 mmol/L (10-20); BUN (Urea Nitrogen) 19 mg/dL (9.8-20.1); Calc. Creatinine Clearance 0 mL/min (70-130); Calcium 7.8 mg/dL (7.8-10.44); Carbon Dioxide 11 mmol/L (23-31); Chloride 102 mmol/L (98-107); Estimated GFR-MDRD 32; Glucose 239 mg/dL (80-115); Potassium 3.3 mmol/L (3.5-5.1); Sodium 131 mmol/L (136-145)
--- NOTE | 2019-11-21 00:55 | HP ---
REASON FOR ADMISSION: DKA. HISTORY OF PRESENT ILLNESS: This is the patient's 4th admission during this month for noncompliance and DKA. She was just discharged on the by me. The patient was noncompliant with her insulin regimen at home. The patient this time says she was taking her insulin despite which her sugars were in the 300s, hence came to emergency room. She has developed both lower extremities edema at present. When she got discharged, she had minimal edema, which was more in the left lower extremity than right. Prior to her last discharge, Case Management consultation was requested for help with recurrent hospitalization to prevent another hospitalization. The patient was on her home regimen, which she went home on for the last 48 hours during her last hospitalization with her fingerstick glucose being steady. Has no new symptoms other than her sugar being 300, for which she arrived here. On arrival here, the patient was found to be in DKA. She also has acute kidney injury like her last hospitalization. PAST MEDICAL AND SURGICAL HISTORY: Multiple hospitalizations with DKA due to poor compliance with medications. This is her 4th hospitalization this month. 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 CURRENT MEDICATIONS: The patient was discharged on; 1. Levemir 10 units subcu daily. 2. Humalog sliding scale three times daily. 3. Flecainide 50 mg twice daily. 4. Vitamin D3 400 units daily. 5. Levothyroxine 100 mcg daily. 6. Eliquis 5 mg twice daily. 7. Omnicef 300 mg twice daily. 8. Florastor 250 mg p.o. daily. 9. Sertraline 25 mg p.o. daily. ALLERGIES: TO MORPHINE. PERSONAL HISTORY: Does not abuse alcohol or drugs. No history of smoking. Lives with her . FAMILY HISTORY: Mother at the age of 91, she had history of diabetes. Father of natural causes at the age of 78 years. CODE STATUS: Full. Power of district attorney is her review. REVIEW OF SYSTEMS: CONSTITUTIONAL: Negative for weight loss or gain, ability to conduct usual activities. SKIN: Negative for rash, itching. EYES: Negative for double vision, pain. ENT/MOUTH: Negative for nose bleeding, neck stiffness, pain, tenderness. CARDIOVASCULAR: Negative for palpitations, dyspnea on exertion, orthopnea. RESPIRATORY: Negative for shortness of breath, wheezing, cough, hemoptysis, fever or night sweats. GASTROINTESTINAL: Negative for poor appetite, abdominal pain, heartburn, nausea , vomiting, constipation, or diarrhea. GENITOURINARY: Negative for urgency, frequency, dysuria, nocturia. MUSCULOSKELETAL: Negative for pain, swelling. NEUROLOGIC/PSYCHIATRIC: Negative for anxiety, depression. ALLERGY/IMMUNOLOGIC: Negative for skin rash, bleeding tendency. PHYSICAL EXAMINATION: GENERAL: The patient is a 64-year-old female, who is currently not in any acute distress. VITAL SIGNS: Blood pressure 120/50, pulse 70 per minute, respiratory rate 22 per minute, temperature 97.6 degrees Fahrenheit, saturating 100% on room air. NECK: Supple. No elevated JVD. HEENT: Eyes; extraocular muscles intact. Pupils reacting to light. Oral cavity, mucous membranes are dry. No exudates or congestion. CARDIOVASCULAR: S1 and S2 heard. Regular rhythm. RESPIRATORY: Air entry 1+ bilateral. No rales or rhonchi. ABDOMEN: Soft, bowel sounds heard. No tenderness, rigidity, or guarding. EXTREMITIES: There is 2+ peripheral edema. No calf tenderness. VASCULAR SYSTEM: Peripheral pulses 1+ bilateral. No ischemic ulcerations or gangrene. CENTRAL NERVOUS SYSTEM: No gross focal deficits noted. The patient is alert, awake, and oriented well. PSYCHIATRIC: The patient's mood is euthymic. No hallucinations or delusions. LABORATORY DATA: White count of 15, H and H 10 and 32, platelet count 517, MCV is 98 with 83% neutrophils. Venous blood gas done today shows a pH of 7.1, pCO2 21 , PO2 66, bicarb was 7.1. Sodium 131, potassium 3.3, serum bicarb 11, BUN 19, creatinine 1.6, serum glucose 239. Beta hydroxybutyrate levels are 11.79. CLINICAL IMPRESSION AND PLAN: The patient will be admitted to [facility] for recurrent DKA due to noncompliance. She will be on DKA protocol. She was just discharged on the after being admitted for similar complaints. The patient was monitored the last 2 days of her previous hospitalization with current home regimen and her fingerstick glucose were stable here. The patient also had home health visit her from [facility], which was arranged on gabriel basis to help with recurrent hospitalization after she got discharged as well. She had Case Management consultation as well to help with all her medications prior to discharge on the . Despite all the above efforts, the patient has come back with DKA now. She also had [facility] consultation during her last hospitalization and was to follow up with them for her depression for arrangement of outpatient counseling and it is unclear if the patient ever made it to their appointments. Her overall prognosis is poor due to recurrent hospitalization and poor compliance with medications. Job ID: [id number] [facility]ITAL[facility]
[2019-11-21 03:09] LABS: Anion Gap 19 mmol/L (10-20); BUN (Urea Nitrogen) 18 mg/dL (9.8-20.1); Calc. Creatinine Clearance 0 mL/min (70-130); Calcium 7.8 mg/dL (7.8-10.44); Carbon Dioxide 12 mmol/L (23-31); Chloride 104 mmol/L (98-107); Estimated GFR-MDRD 37; Glucose 130 mg/dL (80-115); Potassium 3.6 mmol/L (3.5-5.1); Sodium 131 mmol/L (136-145)
[2019-11-21] MEDS ORDERED: Dextrose 50% Abboject 50 ML SYRINGE ONE (04:45)
[2019-11-21 07:20] LABS: Anion Gap 14 mmol/L (10-20); BUN (Urea Nitrogen) 17 mg/dL (9.8-20.1); Calc. Creatinine Clearance 0 mL/min (70-130); Calcium 7.8 mg/dL (7.8-10.44); Carbon Dioxide 17 mmol/L (23-31); Chloride 105 mmol/L (98-107); Estimated GFR-MDRD 41; Glucose 128 mg/dL (80-115); Potassium 3.5 mmol/L (3.5-5.1); Sodium 132 mmol/L (136-145)
[2019-11-21] MEDS: Levothyroxine Sodium 100 MCG TAB PO SCH (09:22)
[2019-11-21] MEDS ORDERED: Dextrose 50% Abboject 50 ML SYRINGE SLOW IVP PRN (10:56)
[2019-11-21] MEDS ORDERED: HumaLOG 300 UNITS/3 ML VIAL SC PRN (10:56)
[2019-11-21] MEDS ORDERED: Dextrose 5% in Water 1,000 ML IV PRN (10:56)
[2019-11-21] MEDS: Apixaban 5 MG TAB PO SCH ×2 (11:02→20:19)
[2019-11-21] MEDS: Cholecalciferol (Vitamin D3) 400 UNITS TAB PO SCH (11:02)
[2019-11-21] MEDS: Flecainide 50 MG TAB PO SCH ×2 (11:02→20:19)
[2019-11-21] MEDS: Cefdinir 300 MG CAP PO SCH ×2 (11:02→20:19)
[2019-11-21] MEDS: Famotidine/PF 20 mg/2ml Vial SLOW IVP SCH (11:02)
[2019-11-21] MEDS: Saccharomyces boulardii 250 MG CAP PO SCH (11:02)
[2019-11-21 20:06] VITALS: BMI 21.9
[2019-11-21] MEDS: HumaLOG 300 UNITS/3 ML VIAL SC PRN (20:20)
--- NOTE | 2019-11-21 22:07 | PDOC.HOSPP ---
- Subjective Subjective: Doing well. Feels ok. Denies SOB or abdominal pain. - Objective Vital Signs & Weight: Vital Signs (12 hours) Temp Pulse Pulse BP BP 11/21/19 19:11 97.8 F 11/21/19 17:05 62 64 106/43 L 113/52 L 11/21/19 16:21 97.8 F Weight Weight 139 lb 15.896 oz Most Recent Monitor Data Heart Rate from ECG 61 NIBP 103/46 NIBP BP-Mean 65 Respiration from ECG 14 Result Diagrams: 11/20/19 19:52 11/21/19 06:40 Additional Labs: Accuchecks 11/21/19 11/21/19 11/21/19 20:07 16:09 09:59 POC Glucose 269 H 356 H 239 H 11/21/19 11/21/19 11/21/19 09:14 08:09 06:52 POC Glucose 216 H 178 H 130 H 11/21/19 11/21/19 11/21/19 05:35 04:45 03:04 POC Glucose 66 L 45 L* 119 H 11/21/19 11/21/19 11/20/19 01:47 00:39 23:30 POC Glucose 138 H 173 H 210 H 11/20/19 22:25 POC Glucose 330 H Hospitalist ROS - Medication Medications: Active Medications Generic Name Dose Route Start Last Admin Trade Name Freq PRN Reason Stop Dose Admin Apixaban 5 mg 11/21/19 09:00 11/21/19 20:19 Eliquis PO 5 mg BID JANICE Administration Cefdinir 300 mg 11/21/19 09:00 11/21/19 20:19 Omnicef PO 300 mg BID JANICE Administration Cholecalciferol 400 units 11/21/19 09:00 11/21/19 11:02 Vitamin D PO 400 units DAILY JANICE Administration Famotidine 20 mg 11/21/19 09:00 11/21/19 11:02 Pepcid SLOW IVP 20 mg DAILY JANICE Administration Flecainide Acetate 50 mg 11/21/19 09:00 11/21/19 20:19 Tambocor PO 50 mg BID JANICE Administration Insulin Human Lispro 0 units 11/21/19 18:19 11/21/19 20:20 Humalog SC 9 units .AGGRESSIVE SLIDING PRN Administration AGGRESSIVE SLIDING SCALE Protocol Levothyroxine Sodium 100 mcg 11/21/19 06:00 11/21/19 09:22 Synthroid PO 100 mcg 0600 JANICE Administration Saccharomyces Boulardii 250 mg 11/21/19 09:00 11/21/19 11:02 Florastor PO 250 mg DAILY JANICE Administration Sertraline HCl 25 mg 11/21/19 09:00 11/21/19 11:02 Zoloft PO 25 mg DAILY JANICE Administration - Exam General Appearance: NAD, awake alert Heart: RRR, no murmur, no gallops, no rubs, normal peripheral pulses Respiratory: CTAB, no wheezes, no rales, no ronchi, normal chest expansion, no tachypnea, normal percussion Gastrointestinal: soft, non-tender, non-distended, normal bowel sounds, no palpable masses, no hepatomegaly, no splenomegaly, no bruit Extremities: no cyanosis, no clubbing, no edema Musculoskeletal: normal tone, normal strength, no muscle wasting Psychiatric: normal affect, normal behavior, A&O x 3 Hosp A/P (1) Dyslipidemia Code(s): E78.5 - HYPERLIPIDEMIA, UNSPECIFIED Status: Chronic (2) Hypertension Code(s): I10 - ESSENTIAL (PRIMARY) HYPERTENSION Status: Chronic Qualifiers: (3) Hypothyroidism Code(s): E03.9 - HYPOTHYROIDISM, UNSPECIFIED Status: Chronic Qualifiers: (4) DKA (diabetic ketoacidoses) Code(s): E11.10 - TYPE 2 DIABETES MELLITUS WITH KETOACIDOSIS WITHOUT COMA Status: Resolved Qualifiers: Diabetes mellitus type: type 2 Diabetes mellitus complication detail: without coma Qualified Code(s): E11.10 - Type 2 diabetes mellitus with ketoacidosis without coma (5) CKD (chronic kidney disease), stage III Code(s): N18.3 - CHRONIC KIDNEY DISEASE, STAGE 3 (MODERATE) Status: Acute (6) Hyponatremia Code(s): E87.1 - HYPO-OSMOLALITY AND HYPONATREMIA Status: Resolved - Plan Off the insulin gtt. Start SSi, diet. Continue IVF. Can likely go to floor soon. Unclear why she continues to have recurrence of the DKA.
[2019-11-22 04:35] LABS: Anion Gap 18 mmol/L (10-20); BUN (Urea Nitrogen) 19 mg/dL (9.8-20.1); Calc. Creatinine Clearance 40 mL/min (70-130); Calcium 7.7 mg/dL (7.8-10.44); Carbon Dioxide 12 mmol/L (23-31); Chloride 105 mmol/L (98-107); Estimated GFR-MDRD 36; Glucose 198 mg/dL (80-115); Potassium 4.1 mmol/L (3.5-5.1); Sodium 131 mmol/L (136-145)
[2019-11-22] MEDS: Levothyroxine Sodium 100 MCG TAB PO SCH (06:23)
[2019-11-22] MEDS: HumaLOG 300 UNITS/3 ML VIAL SC PRN ×2 (06:23→11:28)
[2019-11-22] MEDS ORDERED: Insulin Glargine 10 UNITS in Pre-Filled Syringe 1 EACH SC SCH (09:30)
[2019-11-22] MEDS: Cholecalciferol (Vitamin D3) 400 UNITS TAB PO SCH (09:33)
[2019-11-22] MEDS: Famotidine/PF 20 mg/2ml Vial SLOW IVP SCH (09:33)
[2019-11-22] MEDS: Saccharomyces boulardii 250 MG CAP PO SCH (09:33)
[2019-11-22] MEDS: Apixaban 5 MG TAB PO SCH ×2 (09:33→21:46)
[2019-11-22] MEDS: Cefdinir 300 MG CAP PO SCH ×2 (09:33→21:46)
[2019-11-22] MEDS: Flecainide 50 MG TAB PO SCH ×2 (09:33→21:46)
--- NOTE | 2019-11-22 09:34 | PDOC.HOSPP ---
- Subjective Encounter Date: 11/22/19 Encounter Time: 09:32 Subjective: Feels ok. Says she is just tired. She says she was taking her meds at home. She was eating and drinking although she had a poor appetite. She says she was home on Thursday from last admission. She had home health visit her. She had good control until Thursday. Then her sugars were high. She called and they recommended hydration and rechecking. She then presented to the ED when they did not improve. She has no insight as to why they sugars are good while she is here, but goes off the rails so quickly when she gets home. - Objective Vital Signs & Weight: Vital Signs (12 hours) Temp 11/22/19 07:32 98.2 F 11/22/19 03:30 98.3 F 11/22/19 03:29 98.0 F 11/22/19 00:05 97.8 F Weight Weight 139 lb 15.896 oz Most Recent Monitor Data Heart Rate from ECG 67 NIBP 104/50 NIBP BP-Mean 68 Respiration from ECG 36 SpO2 99 I&O: 11/21/19 11/22/19 11/23/19 06:59 06:59 06:59 Intake Total 200 Balance 200 Result Diagrams: 11/20/19 19:52 11/22/19 04:05 Additional Labs: Accuchecks 11/22/19 11/21/19 11/21/19 05:44 20:07 16:09 POC Glucose 235 H 269 H 356 H 11/21/19 09:59 POC Glucose 239 H Hospitalist ROS - Medication Medications: Active Medications Generic Name Dose Route Start Last Admin Trade Name Deidre PRN Reason Stop Dose Admin Apixaban 5 mg 11/21/19 09:00 11/21/19 20:19 Eliquis PO 5 mg BID JANICE Administration Cefdinir 300 mg 11/21/19 09:00 11/21/19 20:19 Omnicef PO 300 mg BID JANICE Administration Cholecalciferol 400 units 11/21/19 09:00 11/21/19 11:02 Vitamin D PO 400 units DAILY JANICE Administration Famotidine 20 mg 11/21/19 09:00 11/21/19 11:02 Pepcid SLOW IVP 20 mg DAILY JANICE Administration Flecainide Acetate 50 mg 11/21/19 09:00 11/21/19 20:19 Tambocor PO 50 mg BID JANICE Administration Insulin Human Lispro 0 units 11/21/19 18:19 11/22/19 06:23 Humalog SC 6 units .AGGRESSIVE SLIDING PRN Administration AGGRESSIVE SLIDING SCALE Protocol Levothyroxine Sodium 100 mcg 11/21/19 06:00 11/22/19 06:23 Synthroid PO 100 mcg 0600 JANICE Administration Saccharomyces Boulardii 250 mg 11/21/19 09:00 11/21/19 11:02 Florastor PO 250 mg DAILY JANICE Administration Sertraline HCl 25 mg 11/21/19 09:00 11/21/19 11:02 Zoloft PO 25 mg DAILY JANICE Administration - Exam General Appearance: NAD, awake alert Heart: RRR, no murmur, no gallops, no rubs, normal peripheral pulses Respiratory: CTAB, no wheezes, no rales, no ronchi, normal chest expansion, no tachypnea, normal percussion Gastrointestinal: soft, non-tender, non-distended, normal bowel sounds, no palpable masses, no hepatomegaly, no splenomegaly, no bruit Extremities: 1+ LE edema (UE's and LE's) Neurological: no focal deficits Musculoskeletal: normal tone, generalized weakness Psychiatric: normal behavior, flat affect Hosp A/P (1) DKA (diabetic ketoacidoses) Code(s): E11.10 - TYPE 2 DIABETES MELLITUS WITH KETOACIDOSIS WITHOUT COMA Status: Resolved Qualifiers: Diabetes mellitus type: type 2 Diabetes mellitus complication detail: without coma Qualified Code(s): E11.10 - Type 2 diabetes mellitus with ketoacidosis without coma (2) Dyslipidemia Code(s): E78.5 - HYPERLIPIDEMIA, UNSPECIFIED Status: Chronic (3) Hypothyroidism Code(s): E03.9 - HYPOTHYROIDISM, UNSPECIFIED Status: Chronic Qualifiers: (4) CKD (chronic kidney disease), stage III Code(s): N18.3 - CHRONIC KIDNEY DISEASE, STAGE 3 (MODERATE) Status: Acute (5) Hyponatremia Code(s): E87.1 - HYPO-OSMOLALITY AND HYPONATREMIA Status: Resolved (6) Orthostatic hypotension Code(s): I95.1 - ORTHOSTATIC HYPOTENSION Status: Acute - Plan Off the insulin gtt. Started SSI, diet. Will add some Lantus. OK to go to the medical floor. Unclear why she continues to have recurrence of the DKA. We have tried to do as much as possible to ensure she would do well at home, but it did not work out. Afib by history but NSR here with good rate here. Orthostatic. Not sure why. Has some generalized edema. Appears well hydrated. Albumin is a little low, but no so low that is should cause this degree of orthostasis. Will recheck TSH, T3. TSH was recently normal. Check am Cortisol. PT as tolerated. Consult Nephrology for acute on chronic kidney disease and mild hyponatremia.
[2019-11-22 10:07] LABS: Free T4 (Free Thyroxine) 0.78 ng/dL (0.70-1.48); Thyroid Stimulating Hormone 26.633 uIU/mL (0.35-4.94)
--- NOTE | 2019-11-22 13:43 | CON ---
DATE OF CONSULTATION: 11/22/2019 CONSULTING PHYSICIAN: Alan Richard MD REASON FOR CONSULTATION: Acute kidney injury. REASON FOR ADMISSION: DKA. HISTORY OF PRESENT ILLNESS: This is a 64-year-old female with history of type 2 diabetes, CKD, hypertension, and atrial fibrillation, came to the hospital with DKA and is being evaluated. She was found to have acute kidney injury. Nephrology was consulted. The patient has seen me in the past. No fever or chills. No nausea or vomiting. She is feeling better. PAST MEDICAL HISTORY: Positive for DKA, type 1 diabetes, atrial fibrillation, hypothyroid, and hyperlipidemia. PAST SURGICAL HISTORY: Lumpectomy. HOME MEDICATIONS: Reviewed. ALLERGIES: TO MORPHINE. SOCIAL HISTORY: No smoking, alcohol, or illicit drugs abuse. FAMILY HISTORY: No history of kidney disease. REVIEW OF SYSTEMS: CONSTITUTIONAL: Negative for weight loss or gain, ability to conduct usual activities. SKIN: Negative for rash, itching. EYES: Negative for double vision, pain. ENT/MOUTH: Negative for nose bleeding, neck stiffness, pain, tenderness. CARDIOVASCULAR: Negative for palpitations, dyspnea on exertion, orthopnea. RESPIRATORY: Negative for shortness of breath, wheezing, cough, hemoptysis, fever or night sweats. GASTROINTESTINAL: Negative for poor appetite, abdominal pain, heartburn, nausea, vomiting, constipation, or diarrhea. GENITOURINARY: Negative for urgency, frequency, dysuria, nocturia. MUSCULOSKELETAL: Negative for pain, swelling. NEUROLOGIC/PSYCHIATRIC: Negative for anxiety, depression. ALLERGY/IMMUNOLOGIC: Negative for skin rash, bleeding tendency. Rest are negative. PHYSICAL EXAMINATION: GENERAL: This is a thin-built female, in no apparent distress. VITAL SIGNS: Temperature 98.6, pulse 60, respiratory rate 19, and blood pressure 120/53. HEENT: Atraumatic, normocephalic. Oral mucosa is moist. NECK: Supple. CVS: S1 and S2 heard. Rate and rhythm are regular. RESPIRATORY: Clear. GASTROINTESTINAL: Abdomen is soft. MUSCULOSKELETAL: No edema. DERMATOLOGIC: No skin rash. NEUROLOGIC: Alert and awake. PSYCHIATRIC: Mood and affect normal. LABORATORY STUDIES: Hemoglobin is 10.4. Potassium 4.1, BUN is 19, and creatinine is 1.4. ASSESSMENT AND PLAN: 1. Acute kidney injury, stable. 2. Acidosis, better, but we will add bicarb drip. 3. Edema, controlled. 4. Hypertension. 5. Hyperglycemia. We will continue to monitor. Job ID: [id number]
[2019-11-22] MEDS: Sodium Bicarbonate 75 MEQ in Sodium Chloride 0.45% 1,000 ML IV SCH (14:53)
[2019-11-23] MEDS: Sodium Bicarbonate 75 MEQ in Sodium Chloride 0.45% 1,000 ML IV SCH (01:12)
[2019-11-23] MEDS: Levothyroxine Sodium 100 MCG TAB PO SCH (05:42)
[2019-11-23 06:40] LABS: Anion Gap 12 mmol/L (10-20); BUN (Urea Nitrogen) 16 mg/dL (9.8-20.1); Calc. Creatinine Clearance 45 mL/min (70-130); Calcium 7.7 mg/dL (7.8-10.44); Carbon Dioxide 19 mmol/L (23-31); Chloride 106 mmol/L (98-107); Estimated GFR-MDRD 42; Glucose 130 mg/dL (80-115); Potassium 3.1 mmol/L (3.5-5.1); Sodium 134 mmol/L (136-145)
[2019-11-23] MEDS ORDERED: Potassium Chloride 20 MEQ TAB PO SCH (08:00)
[2019-11-23 08:25] VITALS: BP 116/63; TEMP 97.7
[2019-11-23] MEDS ORDERED: Insulin Glargine 10 UNITS in Pre-Filled Syringe 1 EACH SC SCH (09:00)
[2019-11-23] MEDS: Flecainide 50 MG TAB PO SCH (09:02)
[2019-11-23] MEDS: Cefdinir 300 MG CAP PO SCH (09:02)
[2019-11-23] MEDS: Saccharomyces boulardii 250 MG CAP PO SCH (09:02)
[2019-11-23] MEDS: Famotidine/PF 20 mg/2ml Vial SLOW IVP SCH (09:03)
[2019-11-23] MEDS: Apixaban 5 MG TAB PO SCH (09:03)
[2019-11-23] MEDS: Cholecalciferol (Vitamin D3) 400 UNITS TAB PO SCH (09:03)
--- NOTE | 2019-11-23 13:44 | PRG ---
DATE OF SERVICE: 11/23/2019 SUBJECTIVE: Patient was seen and examined at bedside and overnight events noted. Patient denies any shortness of breath or chest pain or palpitation. No history of nausea or vomiting or diarrhea or fever or chills or cramps. OBJECTIVE: GENERAL: This is a well-built female, in no apparent distress. VITAL SIGNS: Temperature 97.7, heart rate 67, respiratory rate 16, and blood pressure 116/53. HEENT: Atraumatic, normocephalic. Oral mucosa is moist NECK: Supple. CARDIOVASCULAR: S1, S2 heard. Rate and rhythm regular. RESPIRATORY: Clear to auscultation. GASTROINTESTINAL: Abdomen is soft. MUSCULOSKELETAL: No tenderness. No edema. DERMATOLOGIC: No skin rash. NEUROLOGIC: Alert and awake and oriented X3. No focal neurologic deficits. Moving all the extremities. PSYCHIATRIC: Mood and affect normal. LABORATORY DATA: Potassium 3.1, BUN is 16, and creatinine is 1.2. ASSESSMENT AND PLAN: 1. Acute kidney injury, better. 2. Hypokalemia, replace. 3. Acidosis stable. 4. Hypertension. 5. Hyperglycemia and type 2 diabetes. 6. Labs are stable. Avoid nephrotoxins. Job ID: [id number]
== END 2019-11-23 13:29 | disposition home health service (06) | DRG 638 ==
LOC: ERS 19:23 → ERHOLD 22:49 → IMCU/EMU 11-21 09:50 → T4-B 11-22 21:33
PROVIDERS: ADMIT Internal Medicine; ATTEND Internal Medicine
DX: E11.10 Type 2 diabetes mellitus with ketoacidosis without coma (principal); E87.1 Hypo-osmolality and hyponatremia; N17.9 Acute kidney failure, unspecified; E03.9 Hypothyroidism, unspecified; I48.91 Unspecified atrial fibrillation; Z86.73 Personal history of transient ischemic attack (TIA), and cerebral infarction without residual deficits; F32.9 Major depressive disorder, single episode, unspecified; Z88.5 Allergy status to narcotic agent; E78.5 Hyperlipidemia, unspecified; I12.9 Hypertensive chronic kidney disease with stage 1 through stage 4 chronic kidney disease, or unspecified chronic kidney disease; N18.3 Chronic kidney disease, stage 3 (moderate); E11.22 Type 2 diabetes mellitus with diabetic chronic kidney disease
CPT/HCPCS: 36415; 36416; 80048; 80053; 81003; 81015; 82010; 82330; 82533; 82803; 83930; 84439; 84443; 85025; 93005; 94760; 96361; 96365; 96366; 96368; 96376; J0696; J1815; J3480; J3490; S0028

== ENCOUNTER 2020-04-05 06:35 | Outpatient (CLI) | payer OTHER, SELFPAY ==
[2020-04-05 16:53] LABS: Hemoglobin 11.2 g/dL (12.0-16.0); Mean Corpuscular HGB CONC 31.8 g/dL (32.0-36.0); Mean Corpuscular Volume 94.2 fL (78.0-98.0); Mean Platelet Volume 8.4 fL (7.4-10.4); Platelet Count 247 thou/uL (130-400); Red Blood Cell (RBC) Count 3.73 mill/uL (4.20-5.40); White Blood Cell (WBC) Count 5.2 thou/uL (4.8-10.8)
[2020-04-05 17:11] LABS: Anion Gap 15 mmol/L (10-20); BUN (Urea Nitrogen) 33 mg/dL (9.8-20.1); Calc. Creatinine Clearance 0 mL/min (70-130); Calcium 9.6 mg/dL (7.8-10.44); Carbon Dioxide 20 mmol/L (23-31); Chloride 101 mmol/L (98-107); Estimated GFR-MDRD 34; Glucose 416 mg/dL (80-115); Sodium 131 mmol/L (136-145)
[2020-04-06 10:42] LABS: SARS-CoV-2 MS2 Positive; SARS-CoV-2 N Gene Negative; SARS-CoV-2 S Gene Negative; SARS-CoV-2 orf1ab Negative
== END 2020-04-05 06:36 | disposition home or self-care (01) ==
LOC: LABBT 06:35
PROVIDERS: ATTEND Orthopaedic Surgery
DX: Z01.818 Encounter for other preprocedural examination (principal); Z11.59 Encounter for screening for other viral diseases; S52.532A Colles' fracture of left radius, initial encounter for closed fracture
CPT/HCPCS: 80048; 85027; 87635; 93005; 93010; U0003

== ENCOUNTER 2020-04-10 17:26 | Observation (INO) | payer OTHER, SELFPAY ==
[2020-04-10] MEDS ORDERED: Dextrose 50% Abboject 50 ML SYRINGE SLOW IVP PRN ×2 (17:59→20:55)
[2020-04-10] MEDS ORDERED: Dextrose 5% in Water 1,000 ML IV PRN ×2 (17:59→20:55)
[2020-04-10] MEDS ORDERED: HumaLOG 300 UNITS/3 ML VIAL SC SCH (18:45)
[2020-04-10 19:12] LABS: Hemoglobin A1c 10.4 % (4.0-6.0)
[2020-04-10] MEDS: Insulin Glargine 12 UNITS in Pre-Filled Syringe 1 EACH SC SCH (20:29)
[2020-04-10] MEDS: HumaLOG 300 UNITS/3 ML VIAL SC PRN (20:30)
[2020-04-10] MEDS ORDERED: HumaLOG 300 UNITS/3 ML VIAL SC PRN (20:55)
[2020-04-10] MEDS ORDERED: traMADol HCl 50 MG TAB PO PRN (20:59)
[2020-04-11] MEDS: Insulin Glargine 12 UNITS in Pre-Filled Syringe 1 EACH SC SCH ×2 (07:37→22:15)
[2020-04-11] MEDS: HumaLOG 300 UNITS/3 ML VIAL SC SCH ×2 (08:34→11:01)
--- NOTE | 2020-04-11 12:44 | PDOC.HOSPP ---
- Subjective Encounter Date: 04/11/20 Subjective: The patient was seen and examined. Her sugar level was low this morning. She is n.p.o. for the procedure. - Objective Vital Signs & Weight: Vital Signs (12 hours) Temp Pulse Resp BP Pulse Ox 04/11/20 11:02 97.7 F 72 14 110/66 100 04/11/20 07:12 97.9 F 79 14 146/74 H 100 04/11/20 03:12 97.9 F 68 18 133/65 97 I&O: 04/10/20 04/11/20 04/12/20 06:59 06:59 06:59 Intake Total 1250 Balance 1250 Additional Labs: Accuchecks 04/11/20 04/11/20 04/11/20 11:50 09:51 07:02 POC Glucose 43 L* 129 H 219 H 04/11/20 04/10/20 05:55 23:48 POC Glucose 60 L 102 Hospitalist ROS - Medication Medications: Active Medications Generic Name Dose Route Start Last Admin Trade Name Freq PRN Reason Stop Dose Admin Dextrose/Water 25 gm 04/10/20 17:59 04/11/20 11:51 Dextrose 50% SLOW IVP 25 gm PRN PRN Administration Hypoglycemia Dextrose/Water 25 gm 04/10/20 20:55 04/11/20 06:30 Dextrose 50% SLOW IVP 25 gm PRN PRN Administration Hypoglycemia Insulin Glargine 12 units/ 0.12 mls @ 0 mls/hr 04/10/20 21:00 04/10/20 20:29 Miscellaneous Medication SC 0.12 mls HS JANICE Administration Insulin Glargine 12 units/ 0.12 mls @ 0 mls/hr 04/11/20 09:00 04/11/20 07:37 Miscellaneous Medication SC Not Given QAM JANICE Insulin Human Lispro 0 units 04/10/20 17:59 04/10/20 20:30 Humalog SC 10 unit .MODERATE SLIDING SC PRN Administration Moderate Correctional Scale - Exam General Appearance: awake alert ENT: normocephalic atraumatic Neck: supple Respiratory: normal chest expansion, normal percussion Extremities: no cyanosis, no clubbing, no edema Neurological: cranial nerve grossly intact, no new deficit Hosp A/P (1) Insulin dependent diabetes mellitus Code(s): OND8855 - Status: Acute (2) Afib Code(s): I48.91 - UNSPECIFIED ATRIAL FIBRILLATION Status: Acute (3) Dyslipidemia Code(s): E78.5 - HYPERLIPIDEMIA, UNSPECIFIED Status: Chronic (4) Hypothyroidism Code(s): E03.9 - HYPOTHYROIDISM, UNSPECIFIED Status: Chronic Qualifiers: - Plan The patient is n.p.o. for her procedure today. Her sugar levels were low this morning. DC scheduled insulin. Continue with a sliding scale until the patient is able to eat postoperatively. A1c is elevated. Her long-acting insulin might need to be adjusted prior to discharge.
--- NOTE | 2020-04-11 15:23 | PDOC.HOSPP ---
- Subjective Encounter Date: 04/10/20 Encounter Time: 19:00 Subjective: pt up in bed no complains. She was suppose to go for surgery of her left arm. - Objective Vital Signs & Weight: Vital Signs (12 hours) Temp Pulse Resp BP Pulse Ox 04/11/20 11:02 97.7 F 72 14 110/66 100 04/11/20 07:12 97.9 F 79 14 146/74 H 100 I&O: 04/10/20 04/11/20 04/12/20 06:59 06:59 06:59 Intake Total 1250 Balance 1250 Additional Labs: Accuchecks 04/11/20 04/11/20 04/11/20 12:54 11:50 09:51 POC Glucose 166 H 43 L* 129 H 04/11/20 04/11/20 04/10/20 07:02 05:55 23:48 POC Glucose 219 H 60 L 102 Hospitalist ROS - Review of Systems Cardiovascular: denies: chest pain, palpitations, orthopnea, paroxysmal noc. dyspnea, edema, light headedness, other Gastrointestinal: denies: nausea, vomiting, abdominal pain, diarrhea, constipation, melena, hematochezia, other Genitourinary: denies: dysuria, frequency, incontinence, hematuria, retention, other - Medication Medications: Active Medications Generic Name Dose Route Start Last Admin Trade Name Freq PRN Reason Stop Dose Admin Dextrose/Water 25 gm 04/10/20 17:59 04/11/20 11:51 Dextrose 50% SLOW IVP 25 gm PRN PRN Administration Hypoglycemia Dextrose/Water 25 gm 04/10/20 20:55 04/11/20 06:30 Dextrose 50% SLOW IVP 25 gm PRN PRN Administration Hypoglycemia Insulin Glargine 12 units/ 0.12 mls @ 0 mls/hr 04/10/20 21:00 04/10/20 20:29 Miscellaneous Medication SC 0.12 mls HS JANICE Administration Insulin Glargine 12 units/ 0.12 mls @ 0 mls/hr 04/11/20 09:00 04/11/20 07:37 Miscellaneous Medication SC Not Given QAM JANICE Insulin Human Lispro 0 units 04/10/20 17:59 04/10/20 20:30 Humalog SC 10 unit .MODERATE SLIDING SC PRN Administration Moderate Correctional Scale - Exam Neck: negative: supple, symmetric, no JVD, no thyromegaly, no lymphadenopathy, no carotid bruit, JVD Heart: negative: RRR, no murmur, no gallops, no rubs, normal peripheral pulses, irregular, diminshed peripheral pulses, murmur present, II/IV, III/IV Respiratory: negative: CTAB, no wheezes, no rales, no ronchi, normal chest expansion, no tachypnea, normal percussion, rales, rhonchi, tachypneic, wheezes Gastrointestinal: negative: soft, non-tender, non-distended, normal bowel sounds , no palpable masses, no hepatomegaly, no splenomegaly, no bruit, no guarding, no rigidity, tender to palpation, distended, diminished bowl sounds, voluntary guarding Extremities - other findings: left arm in brace Hosp A/P (1) Insulin dependent diabetes mellitus Code(s): PMI4056 - Status: Acute (2) Hypothyroidism Code(s): E03.9 - HYPOTHYROIDISM, UNSPECIFIED Status: Chronic Qualifiers: - Plan will start pt on lantus and scheduled humalog. will check hbg alc. dvt ppx per surgery. will continue her home meds.
[2020-04-11] MEDS ORDERED: EPHEDRINE 25 MG/5 ML SYRINGE ONE (15:59)
[2020-04-11] MEDS ORDERED: PROPOFOL 200 MG/20 ML VIAL ONE (15:59)
[2020-04-11] MEDS ORDERED: PHENYLEPHRINE-NS 100 MCG/ML 10 ML SYRINGE ONE (15:59)
[2020-04-11] MEDS ORDERED: Ondansetron PF 4 MG/2 ML Vial ONE (15:59)
[2020-04-11 16:03] VITALS: BMI 22.8
[2020-04-11] MEDS ORDERED: CEFAZOLIN 2 GM in Premix Bag 1 BAG IVPB SCH (18:45)
--- NOTE | 2020-04-11 20:44 | RAD ---
Exam:Intraoperative fluoroscopy. HISTORY: Distal radius fracture. ORIF. COMPARISON: 10/23/2019 Exposure: 17.7 seconds. 0.34 mg FINDINGS: 3 intraoperative fluoroscopic views demonstrate placement of internal fixation plate at the level of the distal radius. Fracture lucency is identified. There is mild angulation. Remote fracture of the base of the ulnar styloid is noted IMPRESSION: Intraoperative fluoroscopy as above.
[2020-04-11] MEDS ORDERED: Promethazine HCl 25 MG/ML VIAL IM PRN (21:20)
[2020-04-11] MEDS ORDERED: Promethazine HCl 25 MG/ML VIAL SLOW IVP PRN (21:20)
[2020-04-11] MEDS ORDERED: Ondansetron HCl/PF 4 MG/2 ML Vial IVP PRN (21:20)
[2020-04-11] MEDS: HYDROcodone/Acetaminophen 5/325 mg Tablet PO PRN (23:25)
--- NOTE | 2020-04-12 02:14 | OP ---
DATE OF PROCEDURE: 04/11/2020 OPERATIONS: 1. Left distal radius osteotomy with malunion correction. 2. Iliac crest bone graft harvest. PREOPERATIVE DIAGNOSIS: Malunited left distal radius. POSTOPERATIVE DIAGNOSIS: Malunited left distal radius. COMPLICATIONS: None. ESTIMATED BLOOD LOSS: Minimal. CIGAR PATCHER: Nat Romero. IMPLANT: Synthes volar distal radial plate with multiple locking screws was utilized. INDICATIONS: Ms. Yanez is a 64-year-old female, who has fractured her left distal radius. She has developed a malunion with severe dorsal angulation and shortening of her radius. She has been indicated now for osteotomy of the distal radius to correct alignment with bone grafting to allow healing. Risks have been reviewed with her in detail. She has elected to proceed with the operation. DESCRIPTION OF PROCEDURE: Ms. Yanez was identified in the preoperative holding area. Her correct extremity was marked. She was carried to the operating room. She was positioned supine. General anesthesia was induced. A multidisciplinary time-out was performed. The left upper extremity was prepped and draped in a sterile fashion. We began the procedure with a volar approach to the distal radius. We dissected down through the subcutaneous tissues to the FCR tendon sheath. The tendon sheath was opened. We dissected down through the subcutaneous tissues to the pronator quadratus which was elevated from the distal radius. This allowed exposure of the volar surface of the distal radius. There was a clear malunion with complete loss of volar tilt and dorsal angulation. We worked medially and laterally exposing the entire surface of the distal radius and placed Hohmann retractors around the distal radius. At this point, we used intraoperative x-ray to eleni an appropriate spot for osteotomy as well as make our angle appropriately measured on the lateral view. We used an oscillating saw to cut in the distal radius approximately 90% of the way through. We finished the osteotomy with an osteotome. At this point, we freed up the distal aspect of the radius so that it was mobile. We were able to reduce it back to the end of the bone and correct our alignment. I could visualize the ECRL and ECRB tendons through the osteotomy site, there was significant fraying of the tendons and possible full laceration. I made a small approach over the dorsal wrist at the level of these tendons. We then debrided the tendon edges and approximated the ends. the tendons were repaired with a number 2 ethibond sutures with a bunnel stitch. A solid repair was obtained. The thumb abductor tendons and EPL was intact. We then moved to the hip. We made a 3 cm incision over the iliac crest. We dissected down through the subcutaneous tissues to the fascia, which was opened over the iliac crest. We then used our oscillating saw to make a small hinge in the crest of the ilium. We used an osteotome to hinge this up allowing exposure into the cancellous bone. We used a curette to collect approximately 5 to 10 mL of cancellous bone. We brought this down to the radius and packed this in our osteotomy site filling the dorsal cap. Next, we applied a Synthes distal radial plate to the volar surface of the distal radius. We used the plate to guide our volar tilt angle. We reduced the plate to the bone. We took x-ray images confirming that this was reduced and placed multiple locking screws. We again took images. We had a good correction with temple of radial length as well as approximately 15 degrees of volar tilt. We thoroughly irrigated with copious lavage. At this point, we closed all wounds. We applied sterile dressings and a splint on the left arm. We then moved the patient to the recovery area in good condition. Job ID: [id number] [facility]
[2020-04-12] MEDS: HYDROcodone/Acetaminophen 5/325 mg Tablet PO PRN ×2 (05:02→09:13)
[2020-04-12] MEDS ORDERED: Ondansetron PF 4 MG/2 ML Vial SLOW IVP PRN (06:03)
[2020-04-12] MEDS: HumaLOG 300 UNITS/3 ML VIAL SC PRN ×2 (06:06→13:07)
[2020-04-12 09:09] LABS: Anion Gap 19 mmol/L (10-20); BUN (Urea Nitrogen) 12 mg/dL (9.8-20.1); Calc. Creatinine Clearance 65 mL/min (70-130); Calcium 8.8 mg/dL (7.8-10.44); Carbon Dioxide 19 mmol/L (23-31); Chloride 102 mmol/L (98-107); Estimated GFR-MDRD 62; Glucose 251 mg/dL (80-115); Sodium 136 mmol/L (136-145)
[2020-04-12] MEDS: Insulin Glargine 12 UNITS in Pre-Filled Syringe 1 EACH SC SCH (09:17)
[2020-04-12] MEDS ORDERED: Ketorolac Tromethamine 30 MG/ML VIAL ONE (10:19)
[2020-04-12] MEDS ORDERED: Ketorolac Tromethamine 15 MG/ML VIAL IVP PRN (10:29)
[2020-04-12 12:56] VITALS: TEMP 98
[2020-04-12 13:37] VITALS: BP 136/67
[2020-04-12] MEDS ORDERED: Apixaban 5 MG TAB PO SCH (21:00)
[2020-04-12] MEDS ORDERED: Non-Formulary Item 1 EACH (Insulin Detemir [Levemir Flextouch] 20 UNIT) SQ SCH (21:00)
--- NOTE | 2020-04-13 13:06 | DIS ---
DATE OF ADMISSION: 04/10/2020 DATE OF DISCHARGE: 04/12/2020 This is Roni Montalvo PA-C dictating a report for Barrett Sierra MD. PREOPERATIVE DIAGNOSES: Left wrist fracture with poor healing. POSTOPERATIVE DIAGNOSES: Left wrist fracture with poor healing. PROCEDURE: The patient underwent a left wrist osteotomy with plating. HOSPITAL COURSE: The patient's initial surgery date on 04/10 was held due to high sugars, admitted by us and consulted Medicine to get her sugars under control. She had surgery the next day, but was struggling with some pain and therefore stayed one more day. DISCHARGE CONDITION: Good/stable. DISPOSITION: Home. FOLLOWUP: Follow up would be in 10 to 14 days or sooner if there are problems and/or concerns. DISCHARGE MEDICATIONS: Given with usage instructions. Job ID: [id number]
== END 2020-04-12 13:30 | disposition home or self-care (01) ==
LOC: SDC 17:26 → SURG A 17:27 → SDC 18:20 → SURG A 18:20
PROVIDERS: ADMIT Orthopaedic Surgery; ATTEND Orthopaedic Surgery
PROC: 0PSJ04Z Reposition Left Radius with Internal Fixation Device, Open Approach (ICD-10-PCS; principal; 2020-04-11)
PROC: 0PUJ07Z Supplement Left Radius with Autologous Tissue Substitute, Open Approach (ICD-10-PCS; 2020-04-11)
PROC: 3E0T3BZ Introduction of Anesthetic Agent into Peripheral Nerves and Plexi, Percutaneous Approach (ICD-10-PCS; 2020-04-11)
DX: S52.532P Colles' fracture of left radius, subsequent encounter for closed fracture with malunion (principal); G89.18 Other acute postprocedural pain; E11.9 Type 2 diabetes mellitus without complications; E03.9 Hypothyroidism, unspecified; E78.5 Hyperlipidemia, unspecified; I48.91 Unspecified atrial fibrillation; Z79.4 Long term (current) use of insulin; Z79.82 Long term (current) use of aspirin; Z79.01 Long term (current) use of anticoagulants; Z79.899 Other long term (current) drug therapy; Z88.5 Allergy status to narcotic agent; W18.30XD Fall on same level, unspecified, subsequent encounter
CPT/HCPCS: 36415; 36416; 76000; 80048; 83036; 96374; 96375; 96376; C1713; G0378; J1815; J1885; J2405; J2704

== ENCOUNTER 2020-08-01 10:06 | Inpatient (IN) | payer OTHER, SELFPAY ==
[2020-08-01] MEDS ORDERED: Ondansetron PF 4 MG/2 ML Vial ONE ×2 (10:33→11:56)
[2020-08-01 10:59] LABS: #Basophils 0.1 thou/uL (0.0-0.2); #Lymphocytes 1.5 thou/uL (1.20-3.40); #Monocytes 0.7 thou/uL (0.11-0.59); #Neutrophils 7.1 thou/uL (1.40-6.50); %Basophils 0.6 % (0.0-1.0); %Eosinophils 0.4 % (0.0-10.0); %Lymphocytes 15.6 % (21.0-51.0); %Neutrophils 76.3 % (42.0-75.0); Hemoglobin 12.1 g/dL (12.0-16.0); Mean Corpuscular HGB CONC 30.9 g/dL (32.0-36.0); Mean Corpuscular Hemoglobin 30.8 pg (27.0-31.0); Mean Corpuscular Volume 99.9 fL (78.0-98.0); Mean Platelet Volume 8.7 fL (7.4-10.4); Platelet Count 249 thou/uL (130-400); Red Blood Cell (RBC) Count 3.93 mill/uL (4.20-5.40); White Blood Cell (WBC) Count 9.3 thou/uL (4.8-10.8)
[2020-08-01 11:20] LABS: Albumin 4.4 g/dL (3.4-4.8)
[2020-08-01 11:21] LABS: Chloride 92 mmol/L (98-107); Potassium 6.2 mmol/L (3.5-5.1); Sodium 127 mmol/L (136-145)
[2020-08-01 11:22] LABS: Calcium 9.7 mg/dL (7.8-10.44)
[2020-08-01 11:23] LABS: Globulin 3.1 g/dL (2.4-3.5); Protein, Total 7.5 g/dL (6.0-8.3)
[2020-08-01 11:24] LABS: Anion Gap 31 mmol/L (10-20); Bilirubin, Total 0.5 mg/dL (0.2-1.2); Carbon Dioxide 10 mmol/L (23-31)
[2020-08-01 11:25] LABS: Alkaline Phosphatase 169 U/L (40-110)
[2020-08-01 11:26] LABS: Calc. Creatinine Clearance 0 mL/min (70-130); Estimated GFR-MDRD 22
[2020-08-01 11:27] LABS: BUN (Urea Nitrogen) 51 mg/dL (9.8-20.1)
[2020-08-01 11:28] LABS: AST (SGOT) 23 U/L (5-34); Magnesium 2.7 mg/dL (1.6-2.6)
[2020-08-01 11:29] LABS: ALT (SGPT) 19 U/L (8-55)
[2020-08-01] MEDS ORDERED: Insulin Regular 100 units/100 ml in NS IVPB SCH (11:30)
[2020-08-01 11:43] LABS: Glucose 863 mg/dL (80-115)
[2020-08-01] MEDS ORDERED: Acetaminophen 325 MG TAB PO PRN (11:48)
[2020-08-01] MEDS ORDERED: Ondansetron PF 4 MG/2 ML Vial IVP PRN (11:48)
[2020-08-01] MEDS ORDERED: Dextrose 5 %-0.45 % NaCl 1,000 ML IV PRN (11:49)
[2020-08-01] MEDS ORDERED: Electrolyte Replacement Protoc 1 EACH EACH IVPB ONE (11:49)
[2020-08-01] MEDS ORDERED: NS 0.9% w/ 20 MEQ KCL 1,000 ML IV PRN ×2 (11:49)
[2020-08-01] MEDS ORDERED: Sodium Chloride 0.9% 1,000 ML IV PRN ×4 (11:49)
[2020-08-01] MEDS ORDERED: HYDROcodone/Acetaminophen 5/325 mg Tablet PO PRN (11:51)
[2020-08-01] MEDS ORDERED: HUMULIN R 100 UNITS in Sodium Chloride 0.9% 100 ML IVPB SCH (12:00)
[2020-08-01 12:57] LABS: BUN (Urea Nitrogen) 51 mg/dL (9.8-20.1); Calc. Creatinine Clearance 0 mL/min (70-130); Calcium 8.8 mg/dL (7.8-10.44); Carbon Dioxide Less than 8 mmol/L (23-31); Chloride 96 mmol/L (98-107); Estimated GFR-MDRD 24; Glucose 816 mg/dL (80-115); Potassium 5.6 mmol/L (3.5-5.1); Sodium 128 mmol/L (136-145)
[2020-08-01] MEDS ORDERED: Electrolyte Replacement Protocol FS PRN (13:15)
[2020-08-01 14:17] LABS: Bilirubin Negative (Negative); Blood, Urine Negative (Negative); Clarity Clear (Clear); Glucose, Urine (Dipstick) Greater than 1000 mg/dL (Negative); Ketone, Urine 80 mg/dL (Negative); Leukocyte 25 Leu/uL (Negative); Nitrite Negative (Negative); Protein, Urine (Dipstick) Negative (Neg-Trace); RBC/HPF 0-3 HPF (0-3); Specific Gravity, Urine 1.018 (1.002-1.036); Squamous Epithelial 0-3 HPF (0-3); Urobilinogen Normal mg/dL (Less than 2)
[2020-08-01 14:18] LABS: Bacteria/HPF 1+ HPF (None Seen)
[2020-08-01 15:17] LABS: Calcium 8.9 mg/dL (7.8-10.44); Chloride 101 mmol/L (98-107); Potassium 4.5 mmol/L (3.5-5.1); Sodium 130 mmol/L (136-145)
[2020-08-01 15:18] LABS: Glucose 546 mg/dL (80-115)
[2020-08-01 15:19] LABS: Anion Gap 25 mmol/L (10-20)
[2020-08-01 15:20] LABS: Magnesium 2.3 mg/dL (1.6-2.6); Phosphorus 4.4 mg/dL (2.3-4.7)
[2020-08-01 15:21] LABS: Calc. Creatinine Clearance 0 mL/min (70-130); Estimated GFR-MDRD 27
[2020-08-01 15:22] LABS: BUN (Urea Nitrogen) 47 mg/dL (9.8-20.1)
[2020-08-01 15:24] LABS: Carbon Dioxide 9 mmol/L (23-31)
[2020-08-01] MEDS ORDERED: hydrALAZINE 20 MG/ML VIAL SLOW IVP PRN (15:25)
[2020-08-01 16:33] VITALS: BMI 22.6
[2020-08-01 20:45] LABS: Anion Gap 13 mmol/L (10-20); BUN (Urea Nitrogen) 41 mg/dL (9.8-20.1); Calc. Creatinine Clearance 39 mL/min (70-130); Calcium 8.4 mg/dL (7.8-10.44); Carbon Dioxide 18 mmol/L (23-31); Chloride 111 mmol/L (98-107); Estimated GFR-MDRD 35; Glucose 202 mg/dL (80-115); Potassium 3.8 mmol/L (3.5-5.1); Sodium 138 mmol/L (136-145)
[2020-08-01] MEDS: Apixaban 5 MG TAB PO SCH (21:13)
[2020-08-01] MEDS: D5 1/2 NS w/20 mEq KCL 1,000 ML IV PRN (21:16)
[2020-08-02] MEDS: D5 1/2 NS w/20 mEq KCL 1,000 ML IV PRN ×3 (01:16→08:58)
[2020-08-02 04:09] LABS: Anion Gap 14 mmol/L (10-20); BUN (Urea Nitrogen) 34 mg/dL (9.8-20.1); Calc. Creatinine Clearance 44 mL/min (70-130); Carbon Dioxide 15 mmol/L (23-31); Chloride 111 mmol/L (98-107); Estimated GFR-MDRD 40; Glucose 226 mg/dL (80-115); Potassium 4.5 mmol/L (3.5-5.1); Sodium 135 mmol/L (136-145)
--- NOTE | 2020-08-02 05:58 | HP ---
CHIEF COMPLAINT: Hyperglycemia. HISTORY OF PRESENT ILLNESS: A 64-year-old female with a history of type 1 diabetes mellitus for over 2 decades, noncompliant with insulin regimen, presenting with nausea, vomiting, abdominal pain, and high blood glucose that is not measurable in her machine at home. She also had a Kussmaul respiration on presentation at ER. Her pH was 7.1, potassium 5.9, and VBG shows blood glucose over 700. Labs consistent with DKA, started on insulin drip at 7 units/hour. During my evaluation, the patient denies any recent fever, productive cough. She was COVID positive last month. She has no elevated white count. She did not have any sick exposure. No fever or productive cough at home. She lives with her . States there was a little discomfortable when she urinates, but no blood in the urine or stool noted. She did not have any obvious triggers for her hyperglycemia. No food poisoning. She was at her normal baseline functional status until this morning. REVIEW OF SYSTEMS: 13-point review of systems reviewed and she denies any pertinence, denies any abnormality other than what is addressed in the history of present illness. Denies tingling or numbness in her extremities. No headache or blurriness acutely. She does have polyuria and polydipsia. Denies chest pain, orthopnea, PND, lower extremity edema, or productive cough. ALLERGIES: SHE IS ALLERGIC TO MORPHINE. MEDICATIONS: 1. Zoloft 25 mg daily. 2. Levothyroxine 1 tablet, unknown dose daily. 3. Eliquis 5 mg twice a day. 4. Lispro 3 times a day. 5. Levemir 20 units at night. 6. Vitamin C. 7. Tylenol as needed. SOCIAL HISTORY: Does not smoke or drink. FAMILY HISTORY: Mother has diabetes. Denies any malignancy in the family. PAST MEDICAL HISTORY: She does have multiple hospitalizations for DKA due to nonadherence with medications; type 1 diabetes mellitus; chronic paroxysmal atrial fibrillation, on Eliquis; hypothyroidism; hyperlipidemia; history of CVA without any residual deficits. PAST SURGICAL HISTORY: Left breast lumpectomy in 1998. PHYSICAL EXAMINATION: VITAL SIGNS: She is afebrile, normotensive. CARDIOVASCULAR: Regular rate and rhythm without murmurs, rubs, or gallops. LUNGS: Clear to auscultation bilaterally without wheezing, rales, or rhonchi. ABDOMEN: Soft, nontender, and nondistended. Good bowel sounds. EXTREMITIES: Without any pitting edema. LABORATORY DATA: Her CBC in the normal range. Her BMP shows a sodium of 130, bicarb of 9. Her creatinine is 1.8. Her blood glucose currently 550. Her magnesium is normal range, phosphorus is 4.4. IMPRESSION AND PLAN: 1. This is a 64-year-old female with type 1 diabetes mellitus for over 2 decades , presenting with diabetic ketoacidosis secondary to probably noncompliance with her medications. 2. Initiated diabetic ketoacidosis protocol. We will frequently check her electrolytes and adjust the fluid as indicated. Run the insulin drip for now and keep her n.p.o. 3. She will be monitored in the tele bed. 4. Afib -- continue with eliquis. 5. Hypothyroidism - continue with levothyroxine. 6. Deep venous thrombosis prophylaxis, jacklyn Job ID: [id number] MTDD
[2020-08-02] MEDS: Levothyroxine Sodium 125 MCG TAB PO SCH (06:22)
[2020-08-02] MEDS: Famotidine/PF 20 mg/2ml Vial SLOW IVP SCH (08:58)
[2020-08-02] MEDS: Apixaban 5 MG TAB PO SCH (08:58)
[2020-08-02] MEDS: Aspirin 81 mg Enteric Coated Tablet PO SCH (08:58)
[2020-08-02] MEDS ORDERED: Dextrose 5% in Water 1,000 ML IV PRN (11:19)
[2020-08-02] MEDS ORDERED: Dextrose 50% Abboject 50 ML SYRINGE IVP PRN (11:19)
[2020-08-02] MEDS ORDERED: Insulin Glargine 10 UNITS in Pre-Filled Syringe 1 EACH SC SCH ×2 (11:30→21:00)
[2020-08-02] MEDS ORDERED: HumaLOG 300 UNITS/3 ML VIAL SC PRN (12:18)
[2020-08-02 12:24] LABS: SARS-CoV-2 MS2 Positive; SARS-CoV-2 N Gene Negative; SARS-CoV-2 S Gene Negative; SARS-CoV-2 by NAA Not Detected (NotDetected); SARS-CoV-2 orf1ab Negative
--- NOTE | 2020-08-02 13:59 | PDOC.HOSPP ---
- Subjective Encounter Date: 08/02/20 Encounter Time: 12:10 Subjective: She denies any nausea and and no other acute complaints. N.p.o. Patient still n.p.o. will initiate her home Lantus at a low dose this morning and wean off the insulin drip. Will get the BMP as well. - Objective Vital Signs & Weight: Vital Signs (12 hours) Temp Pulse Ox 08/02/20 11:21 97.8 F 08/02/20 07:54 98 08/02/20 07:30 98.2 F 08/02/20 04:34 97.2 F L Weight Admit Weight 144 lb Weight 144 lb 9.6 oz Most Recent Monitor Data Heart Rate from ECG 77 NIBP 97/53 NIBP BP-Mean 67 Respiration from ECG 16 SpO2 100 I&O: 08/01/20 08/02/20 08/03/20 06:59 06:59 06:59 Intake Total 3750 Output Total 800 Balance 2950 Result Diagrams: 08/01/20 10:30 08/02/20 03:14 Additional Labs: Accuchecks 08/02/20 08/02/20 08/02/20 11:16 10:00 09:01 POC Glucose 193 H 175 H 188 H 08/02/20 08/02/20 08/02/20 08:24 07:12 06:14 POC Glucose 176 H 157 H 154 H 08/02/20 08/02/20 08/02/20 05:09 04:20 03:13 POC Glucose 193 H 205 H 232 H 08/02/20 08/02/20 08/02/20 02:12 01:13 00:30 POC Glucose 219 H 175 H 167 H 08/01/20 08/01/20 08/01/20 23:08 22:11 21:10 POC Glucose 133 H 134 H 148 H 08/01/20 08/01/20 08/01/20 20:18 19:25 18:17 POC Glucose 193 H 247 H 283 H 08/01/20 08/01/20 08/01/20 17:14 14:02 12:57 POC Glucose 324 H Greater than 550 H* Greater than 550 H* 08/01/20 10:26 POC Glucose Greater than 550 H* Hospitalist ROS - Medication Medications: Active Medications Generic Name Dose Route Start Last Admin Trade Name Freq PRN Reason Stop Dose Admin Apixaban 5 mg 08/01/20 21:00 08/02/20 08:58 Eliquis PO Not Given BID JANICE Aspirin 81 mg 08/02/20 09:00 08/02/20 08:58 Ecotrin PO 81 mg DAILY JANICE Administration Famotidine 20 mg 08/02/20 09:00 08/02/20 08:58 Pepcid SLOW IVP 20 mg DAILY JANICE Administration Potassium Chloride/Dextrose/Sod Cl 1,000 mls @ 250 mls/hr 08/01/20 11:49 09/11 08:58 D5 1/2 Ns W/20 Meq Kcl IV 1,000 mls .Q4H PRN Administration Step 4 of DKA Protocol Protocol Insulin Human Regular 100 101 mls @ 0 mls/hr 08/01/20 12:00 08/01/20 22:00 units/ Sodium Chloride IVPB 101 mls INF JANICE Administration Protocol Titrate Levothyroxine Sodium 125 mcg 08/02/20 06:00 08/02/20 06:22 Synthroid PO 125 mcg 0600 JANICE Administration Sertraline HCl 25 mg 08/02/20 09:00 08/02/20 08:58 Zoloft PO Not Given DAILY JANICE - Exam General Appearance: NAD, awake alert Eye: PERRL ENT: normocephalic atraumatic Neck: supple Heart: RRR Respiratory: CTAB, normal chest expansion Gastrointestinal: soft, normal bowel sounds Neurological: no focal deficits Psychiatric: A&O x 3 Hosp A/P - Plan DKA Type 1 diabetes mellitus -Will wean off the insulin drip as anion gap almost closed. -We will repeat the chemistry panel this afternoon. -Start low-dose Lantus before weaning her off the drip. -Continue after the drip stopped with the sliding scale insulin and soft diabetic diet. -Follow-up on A1c. A. fib -Patient stopped taking Eliquis due to cost issues currently she is only on aspirin Hypothyroidism -Continue with the levothyroxine supplement.
[2020-08-02] MEDS ORDERED: Insulin Glargine 20 UNITS in Pre-Filled Syringe 1 EACH SC SCH (17:30)
[2020-08-02 18:08] LABS: Anion Gap 11 mmol/L (10-20); BUN (Urea Nitrogen) 16 mg/dL (9.8-20.1); Calc. Creatinine Clearance 57 mL/min (70-130); Carbon Dioxide 15 mmol/L (23-31); Chloride 113 mmol/L (98-107); Estimated GFR-MDRD 54; Glucose 90 mg/dL (80-115); Potassium 4.6 mmol/L (3.5-5.1); Sodium 134 mmol/L (136-145)
[2020-08-03 03:57] LABS: #Eosinphils 0.2 thou/uL (0.0-0.7); #Lymphocytes 2.6 thou/uL (1.20-3.40); #Monocytes 0.6 thou/uL (0.11-0.59); #Neutrophils 5.1 thou/uL (1.40-6.50); %Basophils 0.5 % (0.0-1.0); %Lymphocytes 30.6 % (21.0-51.0); %Monocytes 7.5 % (0.0-10.0); %Neutrophils 59.4 % (42.0-75.0); Hemoglobin 10.5 g/dL (12.0-16.0); Mean Corpuscular HGB CONC 32.3 g/dL (32.0-36.0); Mean Corpuscular Hemoglobin 30.1 pg (27.0-31.0); Mean Corpuscular Volume 93.3 fL (78.0-98.0); Mean Platelet Volume 7.8 fL (7.4-10.4); Platelet Count 213 thou/uL (130-400); RBC Distribution Width 12.8 % (11.5-14.5); Red Blood Cell (RBC) Count 3.48 mill/uL (4.20-5.40); White Blood Cell (WBC) Count 8.5 thou/uL (4.8-10.8)
[2020-08-03 04:13] LABS: Hemoglobin A1c 10.6 % (4.0-6.0)
[2020-08-03 04:18] LABS: Anion Gap 9 mmol/L (10-20); BUN (Urea Nitrogen) 11 mg/dL (9.8-20.1); Calc. Creatinine Clearance 66 mL/min (70-130); Calcium 8.4 mg/dL (7.8-10.44); Carbon Dioxide 18 mmol/L (23-31); Chloride 111 mmol/L (98-107); Estimated GFR-MDRD 63; Glucose 118 mg/dL (80-115); Potassium 4.1 mmol/L (3.5-5.1); Sodium 134 mmol/L (136-145)
[2020-08-03] MEDS: Levothyroxine Sodium 125 MCG TAB PO SCH (06:32)
[2020-08-03] MEDS: Famotidine/PF 20 mg/2ml Vial SLOW IVP SCH (10:38)
[2020-08-03] MEDS: Aspirin 81 mg Enteric Coated Tablet PO SCH (10:38)
[2020-08-03 11:40] VITALS: TEMP 97.9
[2020-08-03] MEDS ORDERED: Insulin Glargine 20 UNITS in Pre-Filled Syringe 1 EACH SC SCH (21:00)
--- NOTE | 2020-08-04 04:18 | PQF ---
Dear : Dipak Hernandez Date : 08/04/2020 Please exercise your independent, professional judgment in responding to the clarification form. Clinical indicators are provided on the bottom of this form for your review Can you please further clarify the diagnosis of the patient? Please check appropriate box(es): [ ] Hyponatremia [ ] Insignificant Laboratory findings [ ] Other diagnosis please specify [ ] Unable to determine Physician Signature: Date/Time: For continuity of documentation, please document condition throughout progress notes and discharge summary. Thank You. To be completed by CDI/Coding staff for physician review: Present Clinical Indicators - Signs / Symptoms / Labs Results and Location in Medical Record [ x ] Sodium: 127L, 128L, 130L, 138, 135L, 134L, 134L Laboratory [ x ] Hyperglycemia H and P pg.1 [ x ] Presenting with nausea, vomiting and abdominal pain H and P pg.1 Present Risk Factors Results and Location in Medical Record [ x ] DKA H and P pg.2 [ x ] Non compliant to medication H and P pg.2 [ x ] Afib H and P pg.2 [ x ] hypothyroidism H and P pg.2 [ x ] hyperlipidemia H and P pg.2 Present Treatments Results and Location in Medical Record [ x ] Sodium monitoring Laboratory [ x ] NaCl 1000 IV MAR [ x ] Electrolyte replacement protocol MAR CDS/Certified Tumor Registrar Signature: Derrick Skelton Phone #: ext [phone] Date 08/04/2020 This is a permanent part of the Medical Record [facility]
--- NOTE | 2020-08-05 13:05 | DIS ---
DATE OF ADMISSION: 08/01/2020 DATE OF DISCHARGE: 08/03/2020 DISCHARGE DIAGNOSES: 1. Diabetic ketoacidosis. 2. Type 1 diabetes mellitus. 3. Uncontrolled diabetes with A1c of 10.6. 4. Atrial fibrillation. She used to be on Eliquis, but that was stopped by her primary care physician due to lack of access to funds. 5. Hypothyroidism. MEDICATIONS: Same home medications, no change except Levemir, change from 20 units to 30 units at nighttime. PHYSICAL EXAMINATION: VITAL SIGNS: On the day of discharge, temperature is 97.4, pulse 74, blood pressure is 159/90, and saturating 100% on room air. GENERAL: The patient is alert and oriented. She is not in any acute distress. She is quite anxious to go home. She is tolerating her diet. CARDIOVASCULAR: Regular rate and rhythm without murmurs, rubs, or gallops. LUNGS: Clear to auscultation bilaterally without wheezing, rales, or rhonchi. ABDOMEN: Soft, nontender, nondistended. Good bowel sounds. EXTREMITIES: Without any pitting edema. LABORATORY DATA: Her lab still has mild electrolyte abnormality. Sodium 134, potassium 4.1, bicarb is 18. I have reviewed her previous labs, and she is consistently on the low end of bicarb since August 2019. Consistently, her bicarb level ranging from 22 to 14 and mostly, she is staying around 17 to 19 range. Her A1c is 10.6, suggestive of uncontrolled diabetes mellitus at baseline. HOSPITAL COURSE: A 64-year-old female with type 1 diabetes over two decades and seems noncompliant, presenting with DKA. Followed with DKA protocol, and she was clinically improved, even though her labs still require a little fine tuning. Her anion gap is 9; however, she has been on this low bicarb level for the last 1 year. I have increased her basal insulin from 20 to 30. She is hemodynamically stable. She is tolerating her diabetic diet. She is quite anxious to go home today. DISCHARGE INSTRUCTIONS: Activity as tolerated. Diabetic diet. Follow up with PCP in 1 week. Please adhere to diabetic medications and diet. Discharge time took over 35 minutes. Job ID: [id number]
== END 2020-08-03 13:00 | disposition home or self-care (01) | DRG 639 ==
LOC: ERS 10:06 → IMCU/EMU 12:38
PROVIDERS: ADMIT Internal Medicine; ATTEND Internal Medicine
DX: E10.10 Type 1 diabetes mellitus with ketoacidosis without coma (principal); E03.9 Hypothyroidism, unspecified; F41.9 Anxiety disorder, unspecified; I48.0 Paroxysmal atrial fibrillation; F32.9 Major depressive disorder, single episode, unspecified; E78.5 Hyperlipidemia, unspecified; I10 Essential (primary) hypertension; Z20.828 Contact with and (suspected) exposure to other viral communicable diseases; Z79.890 Hormone replacement therapy; Z91.14 Patient's other noncompliance with medication regimen; Z88.5 Allergy status to narcotic agent; Z79.01 Long term (current) use of anticoagulants; Z79.899 Other long term (current) drug therapy; Z86.73 Personal history of transient ischemic attack (TIA), and cerebral infarction without residual deficits
CPT/HCPCS: 36415; 36416; 80048; 80053; 81003; 81015; 82010; 83036; 83735; 84100; 85025; 87635; J1815; J2405; J3480; J3490; S0028; U0003

== ENCOUNTER 2021-01-31 08:45 | Observation (INO) | payer SELFPAY ==
[2021-01-31] MEDS ORDERED: Fentanyl 100 MCG/2 ML VIAL ONE ×2 (09:18→10:19)
[2021-01-31] MEDS ORDERED: CEFAZOLIN 2 GM in Premix Bag 1 BAG IVPB SCH (10:15)
[2021-01-31 10:38] LABS: #Basophils 0.1 thou/uL (0.0-0.2); #Eosinphils 0.1 thou/uL (0.0-0.7); #Lymphocytes 1.9 thou/uL (1.20-3.40); #Monocytes 0.7 thou/uL (0.11-0.59); #Neutrophils 4.7 thou/uL (1.40-6.50); %Basophils 1.1 % (0.0-1.0); %Lymphocytes 25.2 % (21.0-51.0); %Monocytes 8.9 % (0.0-10.0); %Neutrophils 62.8 % (42.0-75.0); Hemoglobin 12.1 g/dL (12.0-16.0); Mean Corpuscular Hemoglobin 31.5 pg (27.0-31.0); Mean Corpuscular Volume 95.6 fL (78.0-98.0); Mean Platelet Volume 8.2 fL (7.4-10.4); Platelet Count 252 thou/uL (130-400); RBC Distribution Width 12.4 % (11.5-14.5); Red Blood Cell (RBC) Count 3.83 mill/uL (4.20-5.40); White Blood Cell (WBC) Count 7.4 thou/uL (4.8-10.8)
[2021-01-31 10:45] LABS: PTT 35.3 sec (22.9-36.1); Prothrombin Time 13.1 sec (12.0-14.7)
[2021-01-31 11:10] LABS: SARS-CoV-2 NAA Rapid Test Not Detected (NotDetected)
[2021-01-31 11:19] LABS: ALT (SGPT) 30 U/L (8-55); AST (SGOT) 43 U/L (5-34); Albumin 4.4 g/dL (3.4-4.8); Alkaline Phosphatase 116 U/L (40-110); Anion Gap 17 mmol/L (10-20); BUN (Urea Nitrogen) 25 mg/dL (9.8-20.1); Bilirubin, Total 0.3 mg/dL (0.2-1.2); Calc. Creatinine Clearance 0 mL/min (70-130); Calcium 9.5 mg/dL (7.8-10.44); Carbon Dioxide 19 mmol/L (23-31); Chloride 104 mmol/L (98-107); Globulin 3.8 g/dL (2.4-3.5); Glucose 274 mg/dL (80-115); Potassium 5.1 mmol/L (3.5-5.1); Protein, Total 8.2 g/dL (5.8-8.1); Sodium 135 mmol/L (136-145)
[2021-01-31] MEDS ORDERED: Dextrose 5% in Water 1,000 ML IV PRN (11:43)
[2021-01-31] MEDS ORDERED: hydrALAZINE 20 MG/ML VIAL SLOW IVP PRN (11:43)
[2021-01-31] MEDS ORDERED: Ondansetron PF 4 MG/2 ML Vial IVP PRN (11:43)
[2021-01-31] MEDS ORDERED: Insulin Regular 300 UNITS/3 ML VIAL SC PRN (11:43)
[2021-01-31] MEDS ORDERED: Dextrose 50% Abboject 50 ML SYRINGE SLOW IVP PRN (11:43)
[2021-01-31] MEDS ORDERED: Ondansetron ODT 4 MG TAB PO PRN (11:43)
[2021-01-31] MEDS ORDERED: traMADol HCl 50 MG TAB PO PRN (11:43)
[2021-01-31 11:46] VITALS: BMI 27.6
[2021-01-31] MEDS: Acetaminophen 325 MG TAB PO SCH ×3 (12:15→23:07)
[2021-01-31] MEDS: traMADol HCl 50 MG TAB PO PRN (12:16)
[2021-01-31] MEDS: Ibuprofen 200 MG TAB PO SCH ×2 (14:45→23:06)
[2021-01-31] MEDS: Cyclobenzaprine 10 MG TAB PO PRN (18:01)
[2021-02-01] MEDS: Ibuprofen 200 MG TAB PO SCH ×3 (05:40→22:27)
[2021-02-01] MEDS: Dextrose 10% in Water 1,000 ML IV SCH (05:40)
[2021-02-01] MEDS: Sodium Chloride 0.9% 1,000 ML IV SCH ×4 (05:40→17:09)
[2021-02-01] MEDS: Acetaminophen 325 MG TAB PO SCH ×4 (05:40→22:28)
[2021-02-01 05:43] LABS: #Basophils 0.1 thou/uL (0.0-0.2); #Eosinphils 0.1 thou/uL (0.0-0.7); #Lymphocytes 1.2 thou/uL (1.20-3.40); #Monocytes 0.5 thou/uL (0.11-0.59); %Eosinophils 1.2 % (0.0-10.0); %Lymphocytes 20.3 % (21.0-51.0); %Monocytes 8.7 % (0.0-10.0); %Neutrophils 68.9 % (42.0-75.0); Hemoglobin 9.8 g/dL (12.0-16.0); Mean Corpuscular HGB CONC 30.1 g/dL (32.0-36.0); Mean Corpuscular Volume 99.7 fL (78.0-98.0); Mean Platelet Volume 7.2 fL (7.4-10.4); Platelet Count 213 thou/uL (130-400); RBC Distribution Width 12.4 % (11.5-14.5); Red Blood Cell (RBC) Count 3.28 mill/uL (4.20-5.40); White Blood Cell (WBC) Count 5.8 thou/uL (4.8-10.8)
[2021-02-01 05:47] LABS: Anion Gap 15 mmol/L (10-20); BUN (Urea Nitrogen) 19 mg/dL (9.8-20.1); Calc. Creatinine Clearance 45 mL/min (70-130); Carbon Dioxide 17 mmol/L (23-31); Chloride 99 mmol/L (98-107)
[2021-02-01] MEDS ORDERED: Midazolam HCl 2 mg/2 ml Vial ONE ×2 (06:25→06:58)
[2021-02-01] MEDS ORDERED: Fentanyl 100 MCG/2 ML VIAL ONE ×2 (06:25→06:58)
[2021-02-01 06:34] LABS: Potassium 4.6 mmol/L (3.5-5.1); Sodium 132 mmol/L (136-145)
[2021-02-01 06:35] LABS: Calcium 9.3 mg/dL (7.8-10.44); Glucose 222 mg/dL (80-115)
[2021-02-01] MEDS ORDERED: Bupivacaine HCl 0.5%/Epinephrine 1:200,000/PF 30 ml Vial ONE (07:23)
[2021-02-01 08:59] LABS: Magnesium 2.1 mg/dL (1.6-2.6); Phosphorus 3.9 mg/dL (2.3-4.7)
[2021-02-01] MEDS ORDERED: Levothyroxine Sodium 100 MCG TAB PO SCH (09:00)
[2021-02-01] MEDS ORDERED: PHENYLEPHRINE-NS 100 MCG/ML 10 ML SYRINGE ONE (09:24)
[2021-02-01] MEDS ORDERED: Lidocaine 1% PF 5 ML VIAL ONE (09:24)
[2021-02-01] MEDS ORDERED: ePHEDrine 50 MG/ML VIAL ONE (09:24)
[2021-02-01] MEDS ORDERED: PROPOFOL 200 MG/20 ML VIAL ONE (09:24)
[2021-02-01] MEDS ORDERED: Metoclopramide HCl 10 MG/2 ML VIAL ONE (09:24)
[2021-02-01] MEDS ORDERED: Ondansetron PF 4 MG/2 ML Vial ONE (09:24)
[2021-02-01] MEDS: Insulin Regular 300 UNITS/3 ML VIAL SC PRN (12:49)
[2021-02-01] MEDS: Polyethylene Glycol 3350 17 GM Packet PO SCH (14:01)
[2021-02-01] MEDS: Senokot S 8.6-50 MG TAB PO SCH ×2 (14:01→20:11)
[2021-02-01] MEDS: Levothyroxine Sodium 100 MCG TAB PO SCH (14:01)
[2021-02-01] MEDS: CEFAZOLIN 2 GM in Premix Bag 1 BAG IVPB SCH ×2 (17:09→22:28)
[2021-02-01] MEDS: traMADol HCl 50 MG TAB PO PRN (20:10)
[2021-02-01] MEDS ORDERED: Famotidine 20 MG TAB PO SCH (21:00)
[2021-02-01] MEDS: Cyclobenzaprine 10 MG TAB PO PRN (22:28)
[2021-02-02] MEDS: Dextrose 10% in Water 1,000 ML IV SCH (01:37)
[2021-02-02] MEDS: Sodium Chloride 0.9% 1,000 ML IV SCH ×2 (01:37→08:55)
[2021-02-02] MEDS: Ibuprofen 200 MG TAB PO SCH ×2 (05:11→13:03)
[2021-02-02] MEDS: Acetaminophen 325 MG TAB PO SCH ×2 (05:11→13:04)
[2021-02-02] MEDS: Senokot S 8.6-50 MG TAB PO SCH (08:54)
[2021-02-02] MEDS: Polyethylene Glycol 3350 17 GM Packet PO SCH (08:54)
[2021-02-02] MEDS: Levothyroxine Sodium 100 MCG TAB PO SCH (08:55)
[2021-02-02] MEDS: traMADol HCl 50 MG TAB PO PRN (09:01)
[2021-02-02 11:29] VITALS: BP 128/69; TEMP 97.7
[2021-02-02] MEDS: Insulin Regular 300 UNITS/3 ML VIAL SC PRN (13:07)
== END 2021-02-02 14:23 | disposition home or self-care (01) ==
LOC: ERS 08:45 → SURG A 09:51
PROVIDERS: ADMIT Surgery; ATTEND Surgery
PROC: 0PSJ04Z Reposition Left Radius with Internal Fixation Device, Open Approach (ICD-10-PCS; principal; 2021-02-02)
PROC: 3E0T3BZ Introduction of Anesthetic Agent into Peripheral Nerves and Plexi, Percutaneous Approach (ICD-10-PCS; 2021-02-02)
DX: S59.292A Other physeal fracture of lower end of radius, left arm, initial encounter for closed fracture (principal); M97.8XXA Periprosthetic fracture around other internal prosthetic joint, initial encounter; S52.612A Displaced fracture of left ulna styloid process, initial encounter for closed fracture; G89.18 Other acute postprocedural pain; G89.11 Acute pain due to trauma; E11.649 Type 2 diabetes mellitus with hypoglycemia without coma; I10 Essential (primary) hypertension; E78.5 Hyperlipidemia, unspecified; E03.9 Hypothyroidism, unspecified; I48.0 Paroxysmal atrial fibrillation; F41.9 Anxiety disorder, unspecified; F32.9 Major depressive disorder, single episode, unspecified; Z86.73 Personal history of transient ischemic attack (TIA), and cerebral infarction without residual deficits; Z79.4 Long term (current) use of insulin; Z79.82 Long term (current) use of aspirin; Z79.899 Other long term (current) drug therapy; Z88.5 Allergy status to narcotic agent; Z20.822 Contact with and (suspected) exposure to COVID-19; W18.2XXA Fall in (into) shower or empty bathtub, initial encounter
CPT/HCPCS: 0240U; 36415; 36416; 70450; 76000; 80048; 80053; 83735; 84100; 85025; 85610; 85730; 96374; 96375; 96376; C1713; G0378; J0690; J1815; J2250; J2405; J2704; J2765; J3010; J3490

== ENCOUNTER 2021-09-22 17:44 | Inpatient (IN) | payer SELFPAY ==
[2021-09-22] MEDS ORDERED: Lorazepam 2 MG/ML VIAL ONE (17:47)
[2021-09-22] MEDS ORDERED: Fentanyl 100 MCG/2 ML VIAL ONE (18:36)
[2021-09-22] MEDS ORDERED: Fentanyl BOLUS 250 ML IVPB PRN (18:45)
[2021-09-22] MEDS ORDERED: Fentanyl CADD 100 ML IV SCH (18:45)
[2021-09-22 18:49] LABS: #Lymphocytes 0.8 thou/uL (1.20-3.40); #Monocytes 0.5 thou/uL (0.11-0.59); %Eosinophils 0.1 % (0.0-10.0); %Lymphocytes 6.9 % (21.0-51.0); %Monocytes 4.1 % (0.0-10.0); %Neutrophils 88.8 % (42.0-75.0); Hemoglobin 10.6 g/dL (12.0-16.0); Mean Corpuscular HGB CONC 32.4 g/dL (32.0-36.0); Mean Corpuscular Hemoglobin 32.2 pg (27.0-31.0); Mean Corpuscular Volume 99.2 fL (78.0-98.0); Mean Platelet Volume 8.5 fL (7.4-10.4); Platelet Count 224 thou/uL (130-400); RBC Distribution Width 12.3 % (11.5-14.5); Red Blood Cell (RBC) Count 3.31 mill/uL (4.20-5.40); White Blood Cell (WBC) Count 11.3 thou/uL (4.8-10.8)
[2021-09-22 18:53] LABS: Analyzer IN Cardio ER; Base Excess -17.3 mEq/L (-2.0 to +3.0); Calcium, Ionized (venous) 1.13 mmol/L (1.16-1.32); Chloride (VBG) 103 mmol/L (98-106); Hemoglobin (Hb) 11.3 g/dL (11.7-16.0); Potassium (VBG) 5.51 mmol/L (3.70-5.30); Sodium 131.2 mmol/L (133-146)
[2021-09-22 19:00] LABS: INR-International Normal Ratio 1.5; Prothrombin Time 18.5 sec (12.0-14.7)
[2021-09-22 19:01] LABS: PTT 37.3 sec (22.9-36.1)
[2021-09-22 19:03] LABS: ALT (SGPT) 16 U/L (8-55); AST (SGOT) 23 U/L (5-34); Albumin 3.7 g/dL (3.4-4.8); Alkaline Phosphatase 88 U/L (40-110); Anion Gap 25 mmol/L (10-20); BUN (Urea Nitrogen) 27 mg/dL (9.8-20.1); Bilirubin, Total 0.3 mg/dL (0.2-1.2); Calc. Creatinine Clearance 0 mL/min (70-130); Calcium 8.6 mg/dL (7.8-10.44); Carbon Dioxide 10 mmol/L (23-31); Chloride 104 mmol/L (98-107); Globulin 2.6 g/dL (2.4-3.5); Potassium 5.8 mmol/L (3.5-5.1); Protein, Total 6.3 g/dL (5.8-8.1); Sodium 133 mmol/L (136-145)
[2021-09-22 19:09] LABS: Glucose 779 mg/dL (80-115)
[2021-09-22 19:24] LABS: CKMB 2.1 ng/mL (0-6.6)
[2021-09-22] MEDS ORDERED: Insulin Regular 300 UNITS/3 ML VIAL ONE ×2 (19:31→19:36)
[2021-09-22] MEDS ORDERED: Calcium Chloride 1 GM/10 ML Abboject SYRINGE ONE ×3 (19:31→19:37)
[2021-09-22] MEDS ORDERED: INSULIN REGULAR IN 0.9 % NACL 100 UNIT/100 ML BAG ONE (19:35)
[2021-09-22 19:41] LABS: Bilirubin Negative (Negative); Blood, Urine Trace (Negative); Clarity Clear (Clear); Glucose, Urine (Dipstick) Greater than 1000 mg/dL (Negative); Ketone, Urine 20 mg/dL (Negative); Leukocyte Negative Leu/uL (Negative); Mucous/LPF Rare LPF (<2+); Nitrite Negative (Negative); Protein, Urine (Dipstick) Negative (Neg-Trace); RBC/HPF 0-3 HPF (0-3); Specific Gravity, Urine 1.019 (1.002-1.036); Squamous Epithelial None Seen HPF (0-3); Urobilinogen Normal mg/dL (Less than 2); WBC/HPF None Seen HPF (0-3)
[2021-09-22 19:44] LABS: Bacteria/HPF Rare-Few HPF (None Seen)
[2021-09-22] MEDS ORDERED: Aspirin 300 MG Suppository ONE (20:57)
[2021-09-22] MEDS ORDERED: Succinylcholine 200 MG/10 ml SYRINGE FS ONE (21:00)
[2021-09-22 21:03] LABS: SARS-CoV-2 NAA Rapid Test Not Detected (NotDetected)
[2021-09-22 21:22] LABS: Actual Bicarbonate (HCO3v) 10 mEq/L (22-28); pH (venous) 7.16 (7.32-7.43)
[2021-09-22] MEDS ORDERED: Cefepime 2 GM VIAL ONE ×2 (21:27→21:28)
[2021-09-22] MEDS ORDERED: Sodium Bicarb 50 MEQ/50 ML Abboject 8.4% SYRINGE ONE (21:27)
[2021-09-22] MEDS ORDERED: Ondansetron PF 4 MG/2 ML Vial IVP PRN (21:36)
[2021-09-22] MEDS ORDERED: Acetaminophen 650 MG Suppository PR PRN (21:36)
[2021-09-22] MEDS ORDERED: NS 0.9% w/ 20 MEQ KCL 1,000 ML IV PRN ×2 (21:38)
[2021-09-22] MEDS ORDERED: Sodium Chloride 0.9% 1,000 ML IV PRN ×4 (21:38)
[2021-09-22] MEDS ORDERED: Dextrose 5 %-0.45 % NaCl 1,000 ML IV PRN (21:38)
[2021-09-22] MEDS ORDERED: Electrolyte Replacement Protocol 1 EACH IVPB ONE (21:38)
[2021-09-22] MEDS ORDERED: CEFEPIME IVPB PRN (21:39)
[2021-09-22] MEDS ORDERED: Lorazepam 2 MG/ML VIAL SLOW IVP PRN ×2 (21:41→23:00)
[2021-09-22] MEDS ORDERED: Electrolyte Replacement Protocol FS PRN (21:45)
[2021-09-22] MEDS ORDERED: Vancomycin 1.5 GRAM/300 ML BAG 1.5 GM in Premix Bag 1 BAG IVPB SCH (21:45)
[2021-09-22] MEDS ORDERED: HUMULIN R 100 UNITS in Sodium Chloride 0.9% 100 ML IVPB SCH (21:45)
[2021-09-22 21:49] LABS: Lactic Acid 1.6 mmol/L (0.5-2.2)
[2021-09-22 21:58] LABS: Troponin I 0.064 ng/mL (< 0.028)
[2021-09-22 22:11] LABS: Hemoglobin A1c 9.8 % (4.0-6.0)
[2021-09-22 22:17] LABS: Anion Gap 13 mmol/L (10-20); BUN (Urea Nitrogen) 24 mg/dL (9.8-20.1); Calc. Creatinine Clearance 0 mL/min (70-130); Carbon Dioxide 18 mmol/L (23-31); Chloride 114 mmol/L (98-107); Glucose 266 mg/dL (80-115); Magnesium 2.1 mg/dL (1.6-2.6); Phosphorus 2.5 mg/dL (2.3-4.7); Potassium 3.6 mmol/L (3.5-5.1); Sodium 141 mmol/L (136-145)
[2021-09-22] MEDS ORDERED: DISCONTINUE PREVIOUS NARCOTIC PAIN MEDICATIONS AND BENZODIAZEPINES FS SCH (23:00)
[2021-09-22] MEDS ORDERED: Propofol BOLUS 1,000 MG/100 ML VIAL IV PRN (23:00)
[2021-09-22] MEDS: Propofol 1,000 MG/100 ML VIAL IV PRN (23:21)
[2021-09-22] MEDS: D5 1/2 NS w/20 mEq KCL 1,000 ML IV PRN (23:22)
[2021-09-23 01:29] LABS: Troponin I 0.081 ng/mL (< 0.028)
[2021-09-23 01:30] LABS: Anion Gap 11 mmol/L (10-20); BUN (Urea Nitrogen) 23 mg/dL (9.8-20.1); Calc. Creatinine Clearance 62 mL/min (70-130); Calcium 8.7 mg/dL (7.8-10.44); Carbon Dioxide 19 mmol/L (23-31); Chloride 116 mmol/L (98-107); Glucose 130 mg/dL (80-115); Potassium 3.8 mmol/L (3.5-5.1); Sodium 142 mmol/L (136-145)
[2021-09-23 04:28] LABS: Anion Gap 13 mmol/L (10-20); BUN (Urea Nitrogen) 21 mg/dL (9.8-20.1); Calc. Creatinine Clearance 69 mL/min (70-130); Calcium 8.7 mg/dL (7.8-10.44); Carbon Dioxide 17 mmol/L (23-31); Chloride 114 mmol/L (98-107); Glucose 172 mg/dL (80-115); Potassium 3.9 mmol/L (3.5-5.1); Sodium 140 mmol/L (136-145)
[2021-09-23 04:32] LABS: #Lymphocytes 1.7 thou/uL (1.20-3.40); #Monocytes 0.7 thou/uL (0.11-0.59); #Neutrophils 9.3 thou/uL (1.40-6.50); %Basophils 0.3 % (0.0-1.0); %Eosinophils 0.1 % (0.0-10.0); %Lymphocytes 14.3 % (21.0-51.0); %Monocytes 6.3 % (0.0-10.0); Hemoglobin 9.3 g/dL (12.0-16.0); Mean Corpuscular HGB CONC 34.8 g/dL (32.0-36.0); Mean Corpuscular Hemoglobin 33.1 pg (27.0-31.0); Mean Platelet Volume 8.3 fL (7.4-10.4); Platelet Count 197 thou/uL (130-400); White Blood Cell (WBC) Count 11.8 thou/uL (4.8-10.8)
[2021-09-23 06:20] LABS: Anion Gap 10 mmol/L (10-20); BUN (Urea Nitrogen) 19 mg/dL (9.8-20.1); Calc. Creatinine Clearance 66 mL/min (70-130); Calcium 8.5 mg/dL (7.8-10.44); Carbon Dioxide 18 mmol/L (23-31); Chloride 114 mmol/L (98-107); Glucose 238 mg/dL (80-115); Potassium 3.7 mmol/L (3.5-5.1); Sodium 138 mmol/L (136-145)
[2021-09-23] MEDS: D5 1/2 NS w/20 mEq KCL 1,000 ML IV PRN ×3 (06:24→17:30)
[2021-09-23 07:53] LABS: CO2 Tension 26.7 mmHg (35.0-45.0); Calcium, Ionized (arterial) 1.19 mmol/L (1.12-1.30); Carboxyhemoglobin (COHb) 0.3 gm% (0.0-3.0); Hemoglobin (Hb) 10.7 g/dL (12.0-16.0); O2 Tension (PaO2), arterial 153.1 mmHg (> 80.0); Potassium - ABG Lab 3.55 mmol/L (3.70-5.30); pH, Arterial 7.37 (7.35-7.45)
[2021-09-23 08:03] LABS: ALV-art Gradient 98.725 mmHg (0-20); Puncture Site RRA
[2021-09-23] MEDS ORDERED: Famotidine 20 MG TAB PO SCH (09:00)
[2021-09-23] MEDS ORDERED: Rivaroxaban 10 MG TAB PO SCH (09:00)
[2021-09-23] MEDS: Cefepime 2 GM in Sodium Chloride 0.9% 100 ML IVPB SCH ×2 (09:17→20:15)
[2021-09-23] MEDS: Famotidine 20 MG TAB PO SCH ×2 (09:17→20:15)
[2021-09-23] MEDS ORDERED: Magnevist 469MG/ML 20 ML VIAL ONE (13:48)
[2021-09-23] MEDS: Propofol 1,000 MG/100 ML VIAL IV PRN (18:08)
[2021-09-23] MEDS: Acetaminophen 325 MG TAB PO PRN (20:16)
[2021-09-23] MEDS ORDERED: VANCOMYCIN 1.25 GM/250 ML BAG 1.25 GM in Premix Bag 1 BAG IVPB SCH (23:00)
[2021-09-24] MEDS: Acetaminophen 325 MG TAB PO PRN (03:46)
[2021-09-24 05:34] LABS: ALT (SGPT) 18 U/L (8-55); AST (SGOT) 47 U/L (5-34); Alkaline Phosphatase 78 U/L (40-110); Anion Gap 12 mmol/L (10-20); BUN (Urea Nitrogen) 14 mg/dL (9.8-20.1); Bilirubin, Total 0.5 mg/dL (0.2-1.2); Calc. Creatinine Clearance 71 mL/min (70-130); Calcium 7.9 mg/dL (7.8-10.44); Carbon Dioxide 15 mmol/L (23-31); Chloride 109 mmol/L (98-107); Globulin 2.3 g/dL (2.4-3.5); Glucose 97 mg/dL (80-115); Potassium 3.7 mmol/L (3.5-5.1); Protein, Total 5.3 g/dL (5.8-8.1); Sodium 132 mmol/L (136-145)
[2021-09-24 05:51] LABS: Band 36 % (5-11); Hemoglobin 9.6 g/dL (12.0-16.0); Hypochromia SLIGHT = 6-15 cells (100X) (0-5/hpf); Lymphocytes 9 % (21-51); MDiff Complete? YES; Mean Corpuscular HGB CONC 32.2 g/dL (32.0-36.0); Mean Corpuscular Hemoglobin 30.9 pg (27.0-31.0); Mean Corpuscular Volume 95.8 fL (78.0-98.0); Mean Platelet Volume 8.6 fL (7.4-10.4); Metamyelocyte 1 % (0-0); Monocytes 8 % (0-10); Neutrophil 46 % (42-75); Platelet Count 184 thou/uL (130-400); Platelet Morphology Comment Appears Adequate; RBC Distribution Width 12.2 % (11.5-14.5); Red Blood Cell (RBC) Count 3.12 mill/uL (4.20-5.40); White Blood Cell (WBC) Count 7.6 thou/uL (4.8-10.8)
[2021-09-24] MEDS: Cefepime 2 GM in Sodium Chloride 0.9% 100 ML IVPB SCH ×2 (09:40→21:09)
[2021-09-24] MEDS: Famotidine 20 MG TAB PO SCH ×2 (09:40→21:10)
[2021-09-24] MEDS: D5 1/2 NS w/20 mEq KCL 1,000 ML IV PRN (12:00)
[2021-09-24] MEDS: Acetaminophen 650 MG/20.3 ML UDCUP PO PRN ×2 (15:30→21:09)
[2021-09-24 18:08] LABS: ALT (SGPT) 23 U/L (8-55); AST (SGOT) 65 U/L (5-34); Albumin 2.8 g/dL (3.4-4.8); Alkaline Phosphatase 85 U/L (40-110); Anion Gap 10 mmol/L (10-20); BUN (Urea Nitrogen) 12 mg/dL (9.8-20.1); Bilirubin, Total 0.6 mg/dL (0.2-1.2); Calc. Creatinine Clearance 78 mL/min (70-130); Calcium 7.4 mg/dL (7.8-10.44); Carbon Dioxide 14 mmol/L (23-31); Chloride 106 mmol/L (98-107); Globulin 2.1 g/dL (2.4-3.5); Glucose 179 mg/dL (80-115); Potassium 3.4 mmol/L (3.5-5.1); Protein, Total 4.9 g/dL (5.8-8.1); Sodium 127 mmol/L (136-145)
[2021-09-24] MEDS ORDERED: Potassium Chloride 40 MEQ in Premix Bag 1 BAG IVPB SCH (18:45)
[2021-09-24] MEDS: Dextrose 5%-Lactated Ringers 1,000 ML IV SCH (18:46)
[2021-09-25 00:16] LABS: Anion Gap 11 mmol/L (10-20); BUN (Urea Nitrogen) 12 mg/dL (9.8-20.1); Calc. Creatinine Clearance 82 mL/min (70-130); Calcium 7.5 mg/dL (7.8-10.44); Carbon Dioxide 15 mmol/L (23-31); Chloride 107 mmol/L (98-107); Glucose 122 mg/dL (80-115); Potassium 3.6 mmol/L (3.5-5.1); Sodium 129 mmol/L (136-145)
[2021-09-25 05:08] LABS: ALT (SGPT) 27 U/L (8-55); AST (SGOT) 66 U/L (5-34); Albumin 2.6 g/dL (3.4-4.8); Alkaline Phosphatase 94 U/L (40-110); Anion Gap 12 mmol/L (10-20); BUN (Urea Nitrogen) 12 mg/dL (9.8-20.1); Bilirubin, Total 0.8 mg/dL (0.2-1.2); Calc. Creatinine Clearance 80 mL/min (70-130); Calcium 7.9 mg/dL (7.8-10.44); Carbon Dioxide 14 mmol/L (23-31); Chloride 107 mmol/L (98-107); Globulin 2.2 g/dL (2.4-3.5); Glucose 260 mg/dL (80-115); Potassium 3.6 mmol/L (3.5-5.1); Protein, Total 4.8 g/dL (5.8-8.1); Sodium 129 mmol/L (136-145)
[2021-09-25 05:30] LABS: Band 31 % (5-11); Hemoglobin 9.3 g/dL (12.0-16.0); Lymphocytes 5 % (21-51); MDiff Complete? YES; Mean Corpuscular HGB CONC 32.9 g/dL (32.0-36.0); Mean Corpuscular Volume 94.2 fL (78.0-98.0); Mean Platelet Volume 8.3 fL (7.4-10.4); Metamyelocyte 6 % (0-0); Monocytes 3 % (0-10); Neutrophil 55 % (42-75); Platelet Count 185 thou/uL (130-400); Platelet Morphology Comment Appears Adequate; RBC Morphology Normal; Red Blood Cell (RBC) Count 3.01 mill/uL (4.20-5.40)
[2021-09-25 05:55] LABS: Actual Bicarbonate (HCO3v) 16 mEq/L (22-28); Base Excess -9.2 mEq/L (-2.0 to +3.0); Calcium, Ionized (venous) 1.03 mmol/L (1.16-1.32); Chloride (VBG) 109 mmol/L (98-106); Hemoglobin (Hb) 9.9 g/dL (11.7-16.0); Sodium 129.3 mmol/L (133-146); pH (venous) 7.33 (7.32-7.43)
[2021-09-25] MEDS: Dextrose 5%-Lactated Ringers 1,000 ML IV SCH (06:09)
[2021-09-25] MEDS ORDERED: Dextrose 50% Abboject 50 ML SYRINGE SLOW IVP PRN (08:14)
[2021-09-25] MEDS ORDERED: Dextrose 5% in Water 1,000 ML IV PRN (08:14)
[2021-09-25] MEDS: Lantus 1000 UNITS/10 ML VIAL SC SCH ×2 (09:25→20:42)
[2021-09-25] MEDS: Cefepime 2 GM in Sodium Chloride 0.9% 100 ML IVPB SCH ×2 (09:25→20:41)
[2021-09-25] MEDS: Famotidine 20 MG TAB PO SCH ×2 (09:26→20:42)
[2021-09-25] MEDS ORDERED: Sodium Bicarbonate Tab 325 MG TAB PO SCH (11:15)
[2021-09-25 11:39] LABS: Bilirubin Negative (Negative); Blood, Urine 1+ (Negative); Clarity Clear (Clear); Glucose, Urine (Dipstick) 200 mg/dL (Negative); Ketone, Urine Negative (Negative); Leukocyte Negative Leu/uL (Negative); Nitrite Negative (Negative); Protein, Urine (Dipstick) Negative (Neg-Trace); Specific Gravity, Urine 1.006 (1.002-1.036); Urobilinogen Normal mg/dL (Less than 2); pH, Urine 5.5 (5.0-9.0)
[2021-09-25 11:49] LABS: Potassium, Urine 15.5 mmol/L
[2021-09-25] MEDS: Acetaminophen 650 MG/20.3 ML UDCUP PO PRN (12:37)
[2021-09-25] MEDS: HumaLOG 300 UNITS/3 ML VIAL SC PRN (17:59)
[2021-09-26 04:43] LABS: #Eosinphils 0.1 thou/uL (0.0-0.7); #Lymphocytes 1.1 thou/uL (1.20-3.40); #Monocytes 0.7 thou/uL (0.11-0.59); #Neutrophils 8.1 thou/uL (1.40-6.50); %Basophils 0.3 % (0.0-1.0); %Eosinophils 0.6 % (0.0-10.0); %Lymphocytes 11.2 % (21.0-51.0); %Monocytes 6.8 % (0.0-10.0); %Neutrophils 81.2 % (42.0-75.0); Hemoglobin 9.2 g/dL (12.0-16.0); Mean Corpuscular HGB CONC 33.4 g/dL (32.0-36.0); Mean Corpuscular Hemoglobin 31.2 pg (27.0-31.0); Mean Corpuscular Volume 93.4 fL (78.0-98.0); Mean Platelet Volume 8.2 fL (7.4-10.4); Platelet Count 202 thou/uL (130-400); Red Blood Cell (RBC) Count 2.96 mill/uL (4.20-5.40)
[2021-09-26 05:02] LABS: Anion Gap 9 mmol/L (10-20); BUN (Urea Nitrogen) 9 mg/dL (9.8-20.1); Calc. Creatinine Clearance 87 mL/min (70-130); Calcium 7.9 mg/dL (7.8-10.44); Carbon Dioxide 19 mmol/L (23-31); Chloride 112 mmol/L (98-107); Glucose 138 mg/dL (80-115); Sodium 137 mmol/L (136-145)
[2021-09-26] MEDS ORDERED: Potassium Chloride 40 MEQ in Premix Bag 1 BAG IVPB SCH (05:30)
[2021-09-26] MEDS ORDERED: FLU VACC QS2021-22(6MOS UP)/PF 60 MCG/0.5 ML SYRINGE IM ONE (09:00)
[2021-09-26] MEDS: Cefepime 2 GM in Sodium Chloride 0.9% 100 ML IVPB SCH (09:13)
[2021-09-26] MEDS: Famotidine 20 MG TAB PO SCH ×2 (09:14→21:26)
[2021-09-26] MEDS: Lantus 1000 UNITS/10 ML VIAL SC SCH ×2 (09:15→21:26)
[2021-09-26] MEDS: Sodium Bicarbonate Tab 325 MG TAB PO SCH (09:31)
[2021-09-26] MEDS: HumaLOG 300 UNITS/3 ML VIAL SC PRN (18:25)
[2021-09-26] MEDS: Cefdinir 300 MG CAP PO SCH (21:26)
[2021-09-27] MEDS ORDERED: Levothyroxine Sodium 100 MCG TAB PO SCH (06:00)
[2021-09-27 06:28] LABS: Hemoglobin 9.7 g/dL (12.0-16.0); Mean Corpuscular HGB CONC 33.7 g/dL (32.0-36.0); Mean Corpuscular Hemoglobin 31.3 pg (27.0-31.0); Mean Corpuscular Volume 92.8 fL (78.0-98.0); Mean Platelet Volume 7.7 fL (7.4-10.4); Platelet Count 242 thou/uL (130-400); RBC Distribution Width 11.9 % (11.5-14.5)
[2021-09-27 06:50] LABS: Band 26 % (5-11); Eosinophils 5 % (0-10); Lymphocytes 11 % (21-51); MDiff Complete? YES; Monocytes 11 % (0-10); Myelocyte 2 % (0-0); Neutrophil 45 % (42-75); Nucleated RBC 2 % (0)
[2021-09-27 07:06] LABS: Anion Gap 11 mmol/L (10-20); BUN (Urea Nitrogen) 9 mg/dL (9.8-20.1); Calc. Creatinine Clearance 87 mL/min (70-130); Calcium 8.2 mg/dL (7.8-10.44); Carbon Dioxide 21 mmol/L (23-31); Chloride 107 mmol/L (98-107); Glucose 67 mg/dL (80-115); Sodium 136 mmol/L (136-145)
[2021-09-27 07:13] LABS: Potassium 2.9 mmol/L (3.5-5.1)
[2021-09-27] MEDS ORDERED: Non-Formulary Item 1 EACH (Rivaroxaban [Xarelto] 20 MG Tablet) PO SCH (09:00)
[2021-09-27] MEDS ORDERED: LACTINEX 1 TAB PO SCH (09:00)
[2021-09-27] MEDS ORDERED: Rivaroxaban 10 MG TAB PO SCH (09:00)
[2021-09-27] MEDS ORDERED: Non-Formulary Item 1 EACH (Levothyroxine Sodium [Levothyroxine] 125 MCG Capsule) PO SCH (09:00)
[2021-09-27] MEDS: Potassium Chloride 20 MEQ TAB PO SCH ×2 (09:24→14:17)
[2021-09-27] MEDS: Sodium Bicarbonate Tab 325 MG TAB PO SCH (09:25)
[2021-09-27] MEDS: Famotidine 20 MG TAB PO SCH (09:25)
[2021-09-27] MEDS: Lantus 1000 UNITS/10 ML VIAL SC SCH (09:25)
[2021-09-27] MEDS: Cefdinir 300 MG CAP PO SCH (09:25)
[2021-09-27 11:31] VITALS: BP 166/75; TEMP 97.8
[2021-09-27 12:30] VITALS: BMI 27.4
[2021-09-28] MEDS ORDERED: Levothyroxine Sodium 125 MCG TAB PO SCH (06:00)
== END 2021-09-27 15:08 | disposition home or self-care (01) | DRG 100 ==
LOC: ERS 17:44 → CCU 21:08 → 2NO 09-25 14:29
PROVIDERS: ADMIT Internal Medicine; ATTEND Internal Medicine
PROC: 06HY33Z Insertion of Infusion Device into Lower Vein, Percutaneous Approach (ICD-10-PCS; principal; 2021-09-22)
PROC: 0D9670Z Drainage of Stomach with Drainage Device, Via Natural or Artificial Opening (ICD-10-PCS; 2021-09-22)
PROC: 0BH17EZ Insertion of Endotracheal Airway into Trachea, Via Natural or Artificial Opening (ICD-10-PCS; 2021-09-22)
PROC: 5A1945Z Respiratory Ventilation, 24-96 Consecutive Hours (ICD-10-PCS; 2021-09-22)
DX: G40.909 Epilepsy, unspecified, not intractable, without status epilepticus (principal); E10.10 Type 1 diabetes mellitus with ketoacidosis without coma; J96.01 Acute respiratory failure with hypoxia; J13 Pneumonia due to Streptococcus pneumoniae; N17.9 Acute kidney failure, unspecified; Z20.822 Contact with and (suspected) exposure to COVID-19; I48.0 Paroxysmal atrial fibrillation; E03.9 Hypothyroidism, unspecified; E78.5 Hyperlipidemia, unspecified; F41.9 Anxiety disorder, unspecified; F32.A Depression, unspecified; E10.22 Type 1 diabetes mellitus with diabetic chronic kidney disease; I12.9 Hypertensive chronic kidney disease with stage 1 through stage 4 chronic kidney disease, or unspecified chronic kidney disease; E87.5 Hyperkalemia; G93.89 Other specified disorders of brain; N18.30 Chronic kidney disease, stage 3 unspecified; Z88.5 Allergy status to narcotic agent; Z78.1 Physical restraint status; Z98.890 Other specified postprocedural states; Z79.4 Long term (current) use of insulin; Z79.890 Hormone replacement therapy; Z79.899 Other long term (current) drug therapy
CPT/HCPCS: 36415; 36416; 36600; 70450; 70553; 71045; 74018; 80048; 80053; 81003; 81015; 82010; 82436; 82553; 82805; 83036; 83605; 83735; 84100; 84133; 84300; 84443; 84484; 85025; 85610; 85730; 87040; 87086; 93005; 94002; 94003; 95712; 95816; 95819; 95957; A9579; J0692; J1815; J2060; J2704; J3010; J3370; J3480; J3490; J7042; U0002

== ENCOUNTER 2021-09-29 05:21 | Emergency (ER) | payer SELFPAY ==
[2021-09-29] MEDS ORDERED: Dextrose 50% Abboject 50 ML SYRINGE ONE (05:30)
[2021-09-29 05:41] LABS: Hemoglobin 10.2 g/dL (12.0-16.0); Mean Corpuscular HGB CONC 33.1 g/dL (32.0-36.0); Mean Corpuscular Hemoglobin 30.7 pg (27.0-31.0); Mean Corpuscular Volume 92.8 fL (78.0-98.0); Mean Platelet Volume 8.3 fL (7.4-10.4); Platelet Count 305 thou/uL (130-400); RBC Distribution Width 12.3 % (11.5-14.5); Red Blood Cell (RBC) Count 3.32 mill/uL (4.20-5.40); White Blood Cell (WBC) Count 13.9 thou/uL (4.8-10.8)
[2021-09-29 06:15] LABS: Band 10 % (5-11); Eosinophils 3 % (0-10); Lymphocytes 19 % (21-51); MDiff Complete? YES; Metamyelocyte 3 % (0-0); Monocytes 14 % (0-10); Myelocyte 6 % (0-0); Neutrophil 44 % (42-75); Nucleated RBC 1 % (0); Reactive Lymphocytes 1 % (0-10)
[2021-09-29 07:31] LABS: ALT (SGPT) 31 U/L (8-55); AST (SGOT) 35 U/L (5-34); Alkaline Phosphatase 115 U/L (40-110); BUN (Urea Nitrogen) 13 mg/dL (9.8-20.1); Bilirubin, Total 0.4 mg/dL (0.2-1.2); Calc. Creatinine Clearance 0 mL/min (70-130); Carbon Dioxide 22 mmol/L (23-31); Chloride 106 mmol/L (98-107); Globulin 2.4 g/dL (2.4-3.5); Glucose 113 mg/dL (80-115); Potassium 3.4 mmol/L (3.5-5.1); Protein, Total 5.4 g/dL (5.8-8.1); Sodium 137 mmol/L (136-145)
[2021-09-29 07:32] LABS: Anion Gap 12 mmol/L (10-20)
== END 2021-09-29 07:48 | disposition home or self-care (01) ==
LOC: ERS 05:21
DX: E10.649 Type 1 diabetes mellitus with hypoglycemia without coma (principal); E78.5 Hyperlipidemia, unspecified; I10 Essential (primary) hypertension; E03.9 Hypothyroidism, unspecified; I48.91 Unspecified atrial fibrillation
CPT/HCPCS: 36416; 80053; 85025; 96374

== ENCOUNTER 2022-04-04 14:00 | Outpatient (CLI) | payer MEDICARE, BC | END 2022-04-04 14:01 | disposition home or self-care (01) | LOC: BICRAD 14:00 | PROVIDERS: ATTEND Family Medicine | DX: M54.2 Cervicalgia (principal); M47.812 Spondylosis without myelopathy or radiculopathy, cervical region | CPT/HCPCS: 72040 ==

== ENCOUNTER 2022-12-15 13:13 | Emergency (ER) | payer MEDICARE, BC ==
[2022-12-15 14:04] LABS: #Lymphocytes 1.1 thou/uL (1.20-3.40); #Monocytes 1.1 thou/uL (0.11-0.59); %Basophils 0.2 % (0.0-1.0); %Eosinophils 0.5 % (0.0-10.0); %Lymphocytes 10.8 % (21.0-51.0); %Monocytes 10.6 % (0.0-10.0); Hemoglobin 11.5 g/dL (12.0-16.0); Mean Corpuscular HGB CONC 32.1 g/dL (32.0-36.0); Mean Corpuscular Hemoglobin 31.5 pg (27.0-31.0); Mean Platelet Volume 8.2 fL (7.4-10.4); Platelet Count 232 10x3/uL (130-400); RBC Distribution Width 13.7 % (11.5-14.5); Red Blood Cell (RBC) Count 3.65 mill/uL (4.20-5.40); White Blood Cell (WBC) Count 10.2 10x3/uL (4.8-10.8)
[2022-12-15 14:11] LABS: INR-International Normal Ratio 2.9; PTT 64.2 sec (22.9-36.1); Prothrombin Time 31.3 sec (12.0-14.7)
[2022-12-15 14:35] LABS: ALT (SGPT) 9 U/L (8-55); AST (SGOT) 16 U/L (5-34); Albumin 3.8 g/dL (3.4-4.8); Alkaline Phosphatase 148 U/L (40-110); Anion Gap 23 mmol/L (10-20); BUN (Urea Nitrogen) 38 mg/dL (9.8-20.1); Bilirubin, Total 0.5 mg/dL (0.2-1.2); Calc. Creatinine Clearance 0 mL/min (70-130); Calcium 9.6 mg/dL (7.8-10.44); Carbon Dioxide 13 mmol/L (23-31); Chloride 98 mmol/L (98-107); Estimated GFR 24; Globulin 3.9 g/dL (2.4-3.5); Glucose 290 mg/dL (80-115); Lipase Less than 4 U/L (8-78); Potassium 3.9 mmol/L (3.5-5.1); Protein, Total 7.7 g/dL (5.8-8.1); Sodium 130 mmol/L (136-145)
[2022-12-15 17:10] LABS: SARS-CoV-2 NAA Rapid Test Not Detected (NotDetected)
== END 2022-12-15 17:37 | disposition home or self-care (01) ==
LOC: ERS 13:13
DX: E86.0 Dehydration (principal); J95.89 Other postprocedural complications and disorders of respiratory system, not elsewhere classified; E10.9 Type 1 diabetes mellitus without complications; E78.5 Hyperlipidemia, unspecified; I10 Essential (primary) hypertension; E03.9 Hypothyroidism, unspecified; Z79.899 Other long term (current) drug therapy; Z20.822 Contact with and (suspected) exposure to COVID-19
CPT/HCPCS: 0241U; 71045; 83605; 83690; 84484; 85610; 85730; 87040; 93005; 36415; 80053; 84443; 85025

== ENCOUNTER 2024-01-06 06:04 | Inpatient (IN) | payer MEDICARE, BC ==
[2024-01-06 06:26] LABS: #Eosinphils 0.4 thou/uL (0.0-0.7); #Monocytes 0.7 thou/uL (0.11-0.59); #Neutrophils 2.8 thou/uL (1.40-6.50); %Basophils 0.3 % (0.0-1.0); %Eosinophils 6.4 % (0.0-10.0); %Lymphocytes 34.3 % (21.0-51.0); %Monocytes 11.4 % (0.0-10.0); %Neutrophils 47.3 % (42.0-75.0); Hematocrit 34.3 % (36.0-47.0); Hemoglobin 11.3 g/dL (12.0-16.0); Mean Corpuscular HGB CONC 32.9 g/dL (32.0-36.0); Mean Corpuscular Hemoglobin 30.5 pg (27.0-31.0); Mean Corpuscular Volume 92.7 fl (78.0-98.0); Mean Platelet Volume 9.8 fL (7.4-10.4); Platelet Count 247 10x3/uL (130-400); RBC Distribution Width 13.2 % (11.5-14.5)
[2024-01-06 06:45] LABS: ALT (SGPT) 13 U/L (8-55); AST (SGOT) 17 U/L (5-34); Albumin 4.3 g/dL (3.4-4.8); Alkaline Phosphatase 85 U/L (40-110); Anion Gap 14 mmol/L (10-20); BUN (Urea Nitrogen) 22 mg/dL (9.8-20.1); Bilirubin, Total 0.5 mg/dL (0.2-1.2); Calc. Creatinine Clearance 0 mL/min (70-130); Carbon Dioxide 23 mmol/L (23-31); Chloride 98 mmol/L (98-107); Estimated GFR 53; Globulin 3.4 g/dL (2.4-3.5); Glucose 276 mg/dL (80-115); Lipase 9 U/L (8-78); Potassium 4.1 mmol/L (3.5-5.1); Protein, Total 7.7 g/dL (5.8-8.1); Sodium 131 mmol/L (136-145)
[2024-01-06 06:48] LABS: Troponin I 0.021 ng/mL (< 0.028)
[2024-01-06] MEDS ORDERED: Nitroglycerin 2% Ointment 1 INCH/1 GM Packet ONE (07:50)
[2024-01-06] MEDS ORDERED: Aspirin 325 MG TAB ONE (07:50)
[2024-01-06] MEDS ORDERED: Famotidine/PF 20 mg/2ml Vial ONE (08:01)
[2024-01-06] MEDS ORDERED: Nitroglycerin 0.4 MG TAB (25 Tab Bottle) SL PRN (08:37)
[2024-01-06] MEDS ORDERED: Glucagon 1 MG/ML KIT IM PRN (08:51)
[2024-01-06] MEDS ORDERED: Dextrose 50% Abboject 50 ML SYRINGE SLOW IVP PRN (08:51)
[2024-01-06] MEDS ORDERED: Dextrose 5% in Water 1,000 ML IV PRN (08:51)
[2024-01-06 09:23] VITALS: BMI 22.4
[2024-01-06] MEDS: Aspirin Chewable 81 MG TAB PO SCH (09:30)
[2024-01-06] MEDS ORDERED: Levothyroxine Sodium 125 MCG TAB ONE (09:52)
[2024-01-06] MEDS ORDERED: Metoprolol Tartrate 25 MG TAB ONE (09:52)
[2024-01-06] MEDS: Levothyroxine Sodium 75 MCG TAB PO SCH (09:54)
[2024-01-06] MEDS ORDERED: HumaLOG 300 UNITS/3 ML VIAL ONE (11:25)
[2024-01-06] MEDS: HumaLOG 300 UNITS/3 ML VIAL SC PRN (11:27)
[2024-01-06 12:33] LABS: Troponin I 0.018 ng/mL (< 0.028)
[2024-01-06] MEDS: Famotidine 20 MG TAB PO SCH (20:42)
[2024-01-06] MEDS: Atorvastatin Calcium 40 MG TAB PO SCH (20:42)
[2024-01-07] MEDS: Levothyroxine Sodium 75 MCG TAB PO SCH (05:48)
[2024-01-07] MEDS ORDERED: ADENOSINE 60 MG/20 ML SDV ONE (11:13)
[2024-01-07] MEDS ORDERED: traMADol HCl 50 MG TAB PO PRN (13:22)
[2024-01-07] MEDS: Acetaminophen 325 MG TAB PO PRN (13:34)
[2024-01-07] MEDS: Sodium Chloride 0.9% 500 ML IV SCH ×2 (13:34→18:54)
[2024-01-07] MEDS: Insulin Regular 300 UNITS/3 ML VIAL IVP SCH (13:34)
[2024-01-07] MEDS ORDERED: Dextrose 5% in Water 1,000 ML IV PRN (15:48)
[2024-01-07] MEDS ORDERED: HumaLOG 300 UNITS/3 ML VIAL SC PRN (15:48)
[2024-01-07] MEDS ORDERED: Glucagon 1 MG/ML KIT IM PRN (15:48)
[2024-01-07] MEDS ORDERED: Dextrose 50% Abboject 50 ML SYRINGE SLOW IVP PRN (15:48)
[2024-01-07] MEDS: Insulin Glargine 30 UNITS/0.3 ML VIAL SC SCH ×2 (16:29→21:09)
[2024-01-07] MEDS: Rivaroxaban 10 MG TAB PO SCH (16:31)
[2024-01-07] MEDS: HumaLOG 300 UNITS/3 ML VIAL SC SCH (16:31)
[2024-01-07 18:50] LABS: #Eosinphils 0.1 thou/uL (0.0-0.7); #Monocytes 0.7 thou/uL (0.11-0.59); #Neutrophils 4.1 thou/uL (1.40-6.50); %Basophils 0.4 % (0.0-1.0); %Eosinophils 1.8 % (0.0-10.0); %Lymphocytes 26.7 % (21.0-51.0); %Monocytes 10.8 % (0.0-10.0); %Neutrophils 59.9 % (42.0-75.0); Hematocrit 32.5 % (36.0-47.0); Hemoglobin 10.6 g/dL (12.0-16.0); Mean Corpuscular HGB CONC 32.6 g/dL (32.0-36.0); Mean Corpuscular Hemoglobin 30.4 pg (27.0-31.0); Mean Corpuscular Volume 93.1 fl (78.0-98.0); Mean Platelet Volume 9.8 fL (7.4-10.4); Platelet Count 229 10x3/uL (130-400); RBC Distribution Width 13.2 % (11.5-14.5); Red Blood Cell (RBC) Count 3.49 mill/uL (4.20-5.40); White Blood Cell (WBC) Count 6.8 10x3/uL (4.8-10.8)
[2024-01-07 19:11] LABS: Anion Gap 13 mmol/L (10-20); BUN (Urea Nitrogen) 30 mg/dL (9.8-20.1); Calc. Creatinine Clearance 34 mL/min (70-130); Calcium 9.3 mg/dL (7.8-10.44); Carbon Dioxide 21 mmol/L (23-31); Chloride 101 mmol/L (98-107); Estimated GFR 34; Glucose 239 mg/dL (80-115); Magnesium 1.9 mg/dL (1.6-2.6); Potassium 4.1 mmol/L (3.5-5.1); Sodium 131 mmol/L (136-145)
[2024-01-07 19:17] LABS: Troponin I 0.011 ng/mL (< 0.028)
[2024-01-07] MEDS: Sodium Chloride 0.9% 1,000 ML IV SCH (21:08)
[2024-01-08 04:43] LABS: Anion Gap 9 mmol/L (10-20); BUN (Urea Nitrogen) 28 mg/dL (9.8-20.1); Calc. Creatinine Clearance 49 mL/min (70-130); Calcium 8.8 mg/dL (7.8-10.44); Carbon Dioxide 24 mmol/L (23-31); Chloride 104 mmol/L (98-107); Estimated GFR 52; Glucose 104 mg/dL (80-115); Potassium 3.7 mmol/L (3.5-5.1); Sodium 133 mmol/L (136-145)
[2024-01-08] MEDS ORDERED: HumaLOG 300 UNITS/3 ML VIAL SC PRN ×2 (08:26)
[2024-01-08] MEDS ORDERED: Insulin Glargine 30 UNITS/0.3 ML VIAL SC SCH (09:00)
[2024-01-08 09:01] VITALS: BP 114/58; TEMP 97.9
== END 2024-01-08 10:30 | disposition home or self-care (01) | DRG 313 ==
LOC: ERS 06:04 → ERHOLD 08:30 → 2SW 13:20 → OBSVTOIN 01-07 18:33
PROVIDERS: ADMIT Internal Medicine; ATTEND Internal Medicine
DX: R07.89 Other chest pain (principal); N17.9 Acute kidney failure, unspecified; E87.1 Hypo-osmolality and hyponatremia; E78.5 Hyperlipidemia, unspecified; E03.9 Hypothyroidism, unspecified; N18.30 Chronic kidney disease, stage 3 unspecified; F41.9 Anxiety disorder, unspecified; F32.A Depression, unspecified; Z98.890 Other specified postprocedural states; Z83.3 Family history of diabetes mellitus; Z79.899 Other long term (current) drug therapy; Z88.5 Allergy status to narcotic agent; I12.9 Hypertensive chronic kidney disease with stage 1 through stage 4 chronic kidney disease, or unspecified chronic kidney disease; I48.0 Paroxysmal atrial fibrillation; D63.1 Anemia in chronic kidney disease; Z79.82 Long term (current) use of aspirin; E10.22 Type 1 diabetes mellitus with diabetic chronic kidney disease
CPT/HCPCS: 36415; 36416; 71045; 78452; 80048; 80053; 83690; 83735; 84484; 85025; 93005; 93017; 94760; 96374; A9502; G0378; J0153; J1815; J7030; J7050; S0028

== ENCOUNTER 2024-01-14 10:15 | Outpatient (CLI) | payer MEDICARE, BC | END 2024-01-14 10:16 | disposition home or self-care (01) | LOC: BICULT 10:15 | PROVIDERS: ATTEND Family Medicine | DX: M79.602 Pain in left arm (principal); R20.9 Unspecified disturbances of skin sensation ==

== ENCOUNTER 2024-06-14 14:20 | Emergency (ER) | payer MEDICARE, BC ==
[2024-06-14 15:25] LABS: #Basophils 0.03 10x3/uL (0.0-0.2); %Basophils 0.3 % (0.0-1.0); %Eosinophils 1.1 % (0.0-10.0); %Lymphocytes 14.2 % (21.0-51.0); %Monocytes 10.2 % (0.0-10.0); %Neutrophils 73.8 % (42.0-75.0); Hematocrit 33.8 % (36.0-47.0); Hemoglobin 10.9 g/dL (12.0-16.0); Mean Corpuscular HGB CONC 32.2 g/dL (32.0-36.0); Mean Corpuscular Hemoglobin 29.4 pg (27.0-31.0); Mean Corpuscular Volume 91.1 fL (78.0-98.0); Platelet Count 320 10x3/uL (130-400); RBC Distribution Width 13.1 % (11.5-14.5); Red Blood Cell (RBC) Count 3.71 mill/uL (4.20-5.40)
[2024-06-14 15:46] LABS: ALT (SGPT) 7 U/L (8-55); AST (SGOT) 13 U/L (5-34); Albumin 3.4 g/dL (3.4-4.8); Alkaline Phosphatase 98 U/L (40-110); Anion Gap 14 mmol/L (10-20); BUN (Urea Nitrogen) 31 mg/dL (9.8-20.1); Bilirubin, Total 0.5 mg/dL (0.2-1.2); Calc. Creatinine Clearance 0 mL/min (70-130); Calcium 9.2 mg/dL (7.8-10.44); Carbon Dioxide 24 mmol/L (23-31); Chloride 103 mmol/L (98-107); Estimated GFR 31; Globulin 3.7 g/dL (2.4-3.5); Glucose 261 mg/dL (80-115); Potassium 4.3 mmol/L (3.5-5.1); Protein, Total 7.1 g/dL (5.8-8.1); Sodium 137 mmol/L (136-145)
[2024-06-14] MEDS ORDERED: Aspirin Chewable 81 MG TAB ONE ×2 (15:50)
[2024-06-14] MEDS ORDERED: Acetaminophen 500 MG TAB ONE (15:50)
[2024-06-14 15:52] LABS: Troponin I 0.011 ng/mL (< 0.028)
== END 2024-06-14 17:12 | disposition home or self-care (01) ==
LOC: ERS 14:20
DX: I95.9 Hypotension, unspecified (principal); Z00.00 Encounter for general adult medical examination without abnormal findings; E10.9 Type 1 diabetes mellitus without complications; E03.9 Hypothyroidism, unspecified; E78.5 Hyperlipidemia, unspecified; I48.91 Unspecified atrial fibrillation; Z55.6 Problems related to health literacy; Z79.899 Other long term (current) drug therapy
CPT/HCPCS: 36415; 71045; 80053; 84484; 85025; 93005

== ENCOUNTER 2025-05-25 11:54 | Outpatient (CLI) | payer MEDICARE, BC | END 2025-05-25 11:55 | disposition home or self-care (01) | LOC: BICMAMMO 11:54 | PROVIDERS: ATTEND Family Medicine | DX: Z13.820 Encounter for screening for osteoporosis (principal); Z12.31 Encounter for screening mammogram for malignant neoplasm of breast; M85.89 Other specified disorders of bone density and structure, multiple sites; Z80.3 Family history of malignant neoplasm of breast; Z91.89 Other specified personal risk factors, not elsewhere classified; Z78.0 Asymptomatic menopausal state | CPT/HCPCS: 77063; 77067; 77080 ==

== ENCOUNTER 2025-08-11 11:06 | Emergency (ER) | payer MEDICARE, BC ==
[2025-08-11 11:58] LABS: #Basophils 0.03 10x3/uL (0.0-0.2); #Eosinophils 0.18 10x3/uL (0.0-0.7); #Monocytes 0.72 10x3/uL (0.11-0.59); #Neutrophils 5.78 10x3/uL (1.40-6.50); %Basophils 0.4 % (0.0-1.0); %Eosinophils 2.3 % (0.0-10.0); %Lymphocytes 14.2 % (21.0-51.0); %Monocytes 9.1 % (0.0-10.0); %Neutrophils 73.5 % (42.0-75.0); Hematocrit 32.7 % (36.0-47.0); Hemoglobin 10.1 g/dL (12.0-16.0); Mean Corpuscular Hemoglobin 28.2 pg (27.0-31.0); Mean Corpuscular Volume 91.3 fL (78.0-98.0); Platelet Count 358 10x3/uL (130-400); Red Blood Cell (RBC) Count 3.58 mill/uL (4.20-5.40); White Blood Cell (WBC) Count 7.87 10x3/uL (4.8-10.8)
[2025-08-11 12:16] LABS: ALT (SGPT) Less than 7 U/L (Less than 34); AST (SGOT) 16 U/L (11-34); Albumin 3.1 g/dL (3.1-4.5); Alkaline Phosphatase 84 U/L (40-110); Anion Gap 16 mmol/L (10-20); BUN (Urea Nitrogen) 14 mg/dL (9.8-20.1); Bilirubin, Total 0.3 mg/dL (0.3-1.2); Calc. Creatinine Clearance 0 mL/min (70-130); Calcium 9.6 mg/dL (7.8-10.44); Carbon Dioxide 21 mmol/L (23-31); Chloride 100 mmol/L (98-107); Globulin 4.3 g/dL (2.4-3.5); Glucose 274 mg/dL (80-115); Potassium 4.3 mmol/L (3.5-5.1); Sodium 133 mmol/L (136-145)
[2025-08-11] MEDS ORDERED: Acetaminophen 500 MG TAB ONE (12:56)
[2025-08-11] MEDS ORDERED: Ketorolac Tromethamine 30 MG (1 mL) VIAL ONE (12:57)
[2025-08-11 13:15] LABS: Actual Bicarbonate (HCO3v) 20.6 mEq/L (22-28); Analyzer IN Cardio ER; Base Excess -4.0 mEq/L (-2.0 to +3.0); Calcium, Ionized (venous) 1.20 mmol/L (1.16-1.32); Chloride (VBG) 100 mmol/L (98-106); Hematocrit-VBG 32 % (36.0-47.0); Hemoglobin (Hb) 10.8 g/dL (11.7-16.1); Potassium (VBG) 4.45 mmol/L (3.70-5.30); Sodium 133 mmol/L (133-146)
== END 2025-08-11 14:54 | disposition home or self-care (01) ==
LOC: ERS 11:06
DX: M54.6 Pain in thoracic spine (principal); E10.22 Type 1 diabetes mellitus with diabetic chronic kidney disease; I12.9 Hypertensive chronic kidney disease with stage 1 through stage 4 chronic kidney disease, or unspecified chronic kidney disease; N18.9 Chronic kidney disease, unspecified; E78.5 Hyperlipidemia, unspecified; E03.9 Hypothyroidism, unspecified; I48.91 Unspecified atrial fibrillation; Z79.899 Other long term (current) drug therapy; Z79.890 Hormone replacement therapy; Z79.01 Long term (current) use of anticoagulants; Z79.85 Long-term (current) use of injectable non-insulin antidiabetic drugs
CPT/HCPCS: 71045; 80053; 82010; 82805; 83880; 84484; 85025; 93005; 94760; 96374; 99284; J1885; 36415

== ENCOUNTER 2025-08-21 10:04 | Emergency (ER) | payer MEDICARE, BC ==
[2025-08-21 12:17] LABS: #Basophils 0.05 10x3/uL (0.0-0.2); #Eosinophils 0.26 10x3/uL (0.0-0.7); #Monocytes 0.70 10x3/uL (0.11-0.59); #Neutrophils 6.64 10x3/uL (1.40-6.50); %Basophils 0.5 % (0.0-1.0); %Eosinophils 2.8 % (0.0-10.0); %Lymphocytes 16.1 % (21.0-51.0); %Monocytes 7.6 % (0.0-10.0); %Neutrophils 72.1 % (42.0-75.0); Hematocrit 34.7 % (36.0-47.0); Hemoglobin 10.5 g/dL (12.0-16.0); Mean Corpuscular Hemoglobin 28.2 pg (27.0-31.0); Mean Corpuscular Volume 93.0 fL (78.0-98.0); Platelet Count 342 10x3/uL (130-400); Red Blood Cell (RBC) Count 3.73 mill/uL (4.20-5.40); White Blood Cell (WBC) Count 9.21 10x3/uL (4.8-10.8)
[2025-08-21 12:26] LABS: Bacteria/HPF None Seen HPF (None Seen); CAUTI Indications for Culture Pelvic or flank pain; Glucose, Urine (Dipstick) >=1000 mg/dL (Negative); Leukocyte 250 Leu/uL (Negative); Protein, Urine (Dipstick) Negative (Neg-Trace); RBC/HPF 0-3 HPF (0-3); Specific Gravity, Urine 1.017 (1.002-1.036)
[2025-08-21 12:29] LABS: Urine Culture Reflex No No
[2025-08-21 12:42] LABS: ALT (SGPT) Less than 7 U/L (Less than 34); AST (SGOT) 20 U/L (11-34); Albumin 3.5 g/dL (3.1-4.5); Anion Gap 16 mmol/L (10-20); BUN (Urea Nitrogen) 24 mg/dL (9.8-20.1); Bilirubin, Total 0.4 mg/dL (0.3-1.2); Calc. Creatinine Clearance 0 mL/min (70-130); Calcium 9.6 mg/dL (7.8-10.44); Carbon Dioxide 24 mmol/L (23-31); Chloride 100 mmol/L (98-107); Globulin 4.6 g/dL (2.4-3.5); Glucose 213 mg/dL (80-115); Potassium 4.7 mmol/L (3.5-5.1); Sodium 135 mmol/L (136-145)
[2025-08-21 12:50] LABS: Alkaline Phosphatase 99 U/L (40-110)
== END 2025-08-21 13:41 | disposition home or self-care (01) ==
LOC: ERS 10:04
DX: I95.9 Hypotension, unspecified (principal); E03.9 Hypothyroidism, unspecified; E78.5 Hyperlipidemia, unspecified; I10 Essential (primary) hypertension; Z79.899 Other long term (current) drug therapy
CPT/HCPCS: 80053; 81001; 84484; 85025; 93005; 96360; 96361